=== PATIENT | male | born 1990 | race Caucasian/White ===

== ENCOUNTER 2019-02-09 12:03 | Inpatient (IN) | payer OTHER ==
--- NOTE | 2019-02-09 12:23 | PDOC ---
Rapid Medical Evaluation Time Seen by Provider: 02/09/19 12:18 Medical Evaluation: 02/09/19 12:18 I have performed a brief in-person evaluation of this patient. The patient presents with a chief complaint of: constipation- given SS enema without relief. Pertinent physical exam findings: Normoactive BS. Firm, distended abdomen. I have ordered the following: labs The patient will proceed to the ED for further evaluation. Discharge Disposition - Diagnosis Abdominal distention - Referrals - Patient Instructions - Post Discharge Activity
[2019-02-09] MEDS ORDERED: SODIUM PHOSPHATE/NA BIPHOS 133 ML ENEMA PR ONE (12:24)
--- NOTE | 2019-02-09 13:38 | PDOC ---
History of Present Illness - General Chief Complaint: Constipation Stated Complaint: ABD PAIN Time Seen by Provider: 02/09/19 12:18 History Source: Patient, Care Provider Exam Limitations: Clinical Condition - History of Present Illness Initial Comments: History is limited bc patient is non-verbal. History obtained from [place] papers and keno writer/runner from [facility] at bedside. Deni Velez is a quadriplegic 28 yo M from [facility] with a hx of Severe intellectual delay, spastic diplegic cerebral palsy, epilepsy w hx of status epilepticus, constipation, hammer toe, cyclic neutropenia, primary optic atrophy, presence of CSF drainage device who presents to the ER for constipation. The patient was given a fleet enema yesterday at [facility] but he has still not had a bowel movement. Today his abdomen is ridig, distended and tense. The patient also takes Senna 100 mg BID, Colace 100 mg BID, and Bisacodyl suppository prn. Aid at bedside does not know the last time he had a bowel movement but thinks it has not occurred in the past week. 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 Past History - Past Medical History Allergies/Adverse Reactions: Allergies Allergy/AdvReac Type Severity Reaction Status Date / Time latex Allergy Verified 02/09/19 17:31 Home Medications: Ambulatory Orders Acetaminophen [Tylenol] 325 mg PO Q4H PRN 02/09/19 Acetaminophen [Tylenol] 480 mg PO Q4H PRN 02/09/19 Bisacodyl Suppository [Dulcolax Suppository -] 10 mg RC ASDIR PRN 02/09/19 Clobazam [Onfi -] 5 mg PO BID 02/09/19 Container,Empty [Nasal [place] Bottle] 1 each MC HS 02/09/19 Diazepam 1 mg PO TID 02/09/19 Docusate Sodium [Colace -] 100 mg PO BID 02/09/19 FA/Mv,Ca,Iron,Min/Lycopene/Lut [Centravites Tablet] 1 each PO DAILY 02/09/19 Lamotrigine [Lamictal -] 125 mg PO BID 02/09/19 Loratadine [Claritin -] 10 mg PO BID 02/09/19 Magnesium Hydrox 2400MG/30Ml [Milk of Magnesia -] 35 ml PO BID 02/09/19 Sennosides [Senna -] 1 tab PO BID 02/09/19 Simethicone Liquid [Mylicon Liquid -] 0.6 ml PO Q4H PRN 02/09/19 Sodium Phosphate,[place]-Dibasic [Fleet Enema] 133 ml RC ASDIR PRN 02/09/19 Talc/Cellulos/Chloroxy/Aldioxa [Zeasorb Powder] 71 gm TP BID 02/09/19 Tizanidine HCl [Zanaflex (Nf)] 4 mg PO BID 02/09/19 Topiramate [Topamax] 50 mg PO BID 02/09/19 - Suicide/Smoking/Psychosocial Hx Smoking History: Never smoked Review of Systems - Review of Systems Able to Perform ROS?: No (Non-verbal) *Physical Exam - Vital Signs Last Vital Signs Temp Pulse Resp BP Pulse Ox 98.1 F 95 H 20 122/81 99 02/09/19 12:22 02/09/19 12:22 02/09/19 12:22 02/09/19 12:22 02/09/19 12:22 - Physical Exam Comments: GENERAL: Wheelchair bound, contracted, Tense abdomen, no active distress. HEENT: Normocephalic, atraumatic. PERRL, EOM intact. CARDIOVASCULAR: Normal S1, S2. Regular rate and rhythm. PULMONARY: No evidence of respiratory distress. Lungs clear to auscultation bilaterally. No wheezing, rales or rhonchi. ABDOMEN: Abdomen is tense, distended, and diffusely TTP. Normal bowel sounds. EXTREMITIES: Limited ROM in all four extremities. Grossly contracted. SKIN: Warm, dry. No rash Rectal Exam: positive: normal rectal tone, other (Air in the vault. Upon retraction of finger liquid poop shoots out. No palpable stool. ) Neurologic: positive: Normal Mood/Affect, Respond to painful stimul, Responsive. negative: Facial Droop ED Treatment Course - LABORATORY CBC & Chemistry Diagram: 02/09/19 14:12 02/09/19 14:12 - RADIOLOGY Radiograph Interpretation: CTAP: Abdomen and pelvis CT with contrast Clinical information: evaluate for small bowel obstruction Multiplanar imaging was performed following the intravenous administration of nonionic contrast. Area no evidence of pneumoperitoneum, abscess or free intraperitoneal fluid. Moderate diffuse colonic distention is seen including the rectum on the basis of air and fluid accumulation. There is diffuse mild to moderate small bowel distention. No definite CT evidence of volvulus or obstruction. Allowing for respiratory motion artifact the liver, spleen, pelvis, gallbladder, adrenal glands and kidneys demonstrate no obvious abnormality. The aorta appears unremarkable in caliber. No gross lymphadenopathy is seen. The urinary bladder is somewhat overdistended. There is partial imaging of a ventriculoperitoneal shunt catheter in place. The visualized osseous structures demonstrate no obvious acute pathology. Impression : Moderate diffuse colonic dilatation is noted including the rectum secondary to air and fluid accumulation. No definite CT evidence of volvulus or obstruction. There is diffuse mild to moderate small bowel distention. Correlate with close follow-up radiography. Mild urinary bladder overdistention. Bilateral hip dislocations. Status post right proximal femoral ORIF. Possible low position of the lumbar spinal cord/tethered cord. Ventriculoperitoneal shunt catheter in place. Medical Decision Making - Medical Decision Making History is limited bc patient is non-verbal. History obtained from [place] papers and keno writer/runner from [facility] at bedside. Deni Velez is a quadriplegic 28 yo M from [facility] with a hx of Severe intellectual delay, spastic diplegic cerebral palsy, epilepsy w hx of status epilepticus, constipation, hammer toe, cyclic neutropenia, primary optic atrophy, presence of CSF drainage device who presents to the ER for constipation. The patient was given a fleet enema yesterday at [facility] but he has still not had a bowel movement. Today his abdomen is ridig, distended and tense. The patient also takes Senna 100 mg BID, Colace 100 mg BID, and Bisacodyl suppository prn. Aid at bedside does not know the last time he had a bowel movement but thinks it has not occurred in the past week. Vital Signs Temp Pulse Resp BP Pulse Ox 98.1 F 95 H 20 122/81 99 02/09/19 12:22 02/09/19 12:22 02/09/19 12:22 02/09/19 12:02/09/19 12:22 DDx IBNLT: Constipation, SBO, colitis, hernia, Peritonitis. Plan: Labs, analgesia, CTAP, re-assess. Labs: Patient is hypokalemic to 3.2 - Will replete with oral potassium. CTAP: Moderate diffuse colonic distention is seen including the rectum on the basis of air and fluid accumulation. There is diffuse mild to moderate small bowel distention. No definite CT evidence of volvulus or obstruction. 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 Dispo: Will admit patient to hospital for further care including GI consult and disposition. *DC/Admit/Observation/Transfer Diagnosis at time of Disposition: Abdominal distention, Hypokalemia, Intractable abdominal pain, Huan's syndrome - Discharge Dispostion Condition at time of disposition: Guarded Decision to Admit order: Yes - Referrals - Patient Instructions - Post Discharge Activity
[2019-02-09] MEDS ORDERED: ACETAMINOPHEN 1000 MG/100 ML VIAL (NON FORMULARY) IVPB ONE (13:47)
[2019-02-09] MEDS ORDERED: SODIUM CHLORIDE 1,000 ML IV STA (13:47)
[2019-02-09 14:20] LABS: BASO % 0.6 % (0-2.0); HEMATOCRIT 46.4 % (35.4-49); HEMOGLOBIN 15.6 GM/dL (11.7-16.9); MCH 28.3 pg (25.7-33.7); MCHC 33.6 g/dl (32.0-35.9); MEAN CELL VOLUME 84.1 fl (80-96); MEAN PLT VOLUME 8.1 fl (7.5-11.1); MONO % 12.5 % (3.8-10.2); NEUT % 61.9 % (42.8-82.8); PLATELET COUNT 277 K/MM3 (134-434); RBC 5.51 M/mm3 (4.00-5.60); RDW 14.2 % (11.9-15.9); WHITE BLOOD COUNT 4.6 K/mm3 (4.0-10.0)
[2019-02-09 14:32] LABS: INR 0.99 (0.83-1.09); PROTHROMBIN TIME (PATIENT) 11.7 SEC (9.7-13.0)
[2019-02-09 14:47] LABS: ALBUMIN 4.2 g/dl (3.4-5.0); BILIRUBIN,TOTAL 0.7 mg/dL (0.2-1); BLOOD UREA NITROGEN 16.5 mg/dL (7-18); CALCIUM 9.5 mg/dL (8.5-10.1); POTASSIUM 3.2 mmol/L (3.5-5.1); TOT PROT 8.1 g/dl (6.4-8.2)
[2019-02-09] MEDS ORDERED: ACETAMINOPHEN INJECTION 100 ML IVPB ONE (14:52)
[2019-02-09] MEDS ORDERED: morphine CARPU-JECT 4 MG/1 ML DISP.SYRIN IVPUSH ONE (15:45)
[2019-02-09] MEDS ORDERED: MORPHINE SULFATE 2 MG/ML VIAL ONE (16:13)
--- NOTE | 2019-02-09 16:54 | PDOC ---
Documentation entered by Jaye Frank SCRIBE, acting as scribe for Jessica Wayne MD. Jessica Wayne MD: This documentation has been prepared by the Monika gillette Adrianna, SCRIBE, under my direction and personally reviewed by me in its entirety. I confirm that the documentation accurately reflects all work, treatment, procedures, and medical decision making performed by me. 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 Patient had a fleet enema one day ago without any relief. Aid is unsure of his LBM. HPI is limited secondary to patient being non-verbal at baseline. additional history is provided mom at bedside, and aid from [facility]. Allergie: Latex Surgical History: PREDICTIVE MAINTENANCE SPECIALIST shunt Social History: Severe intellectual delay PCP: Anel Denis 02/09/19 15:04 02/09/19 16:46 - Physicial Exam PE: 02/09/19 16:49 awake lungs clear bilat, heart rrr no mrg abd hard, distended, diffuse ttp. rectal large distended rectum, unable to palp bolus of stool, loose watery stool coming on completing. stool yellow, liquid. no blood. ext contracted, nonverbal ( baseline, ) grunts only. - Medical Decision Making 02/09/19 16:52 28 yo male h/o CP PREDICTIVE MAINTENANCE SPECIALIST shunt seizure disorder and chronic constipation here with severely distended abd, and distended rectum, unable to palp stool obstruction.differential Sbo, volvulus, perf, severe constipation and obstipation, megacolon. xray abd, chest. CT AP, will consult surgery due to concerns for surgical abd, ct a/p pelvis. d/w dr Dejesus. 02/09/19 17:55 EXAM#: TYPE/EXAM: RESULT: [id number] RAD/ABDOMEN FLAT UPRIGHT Abdomen and chest: Distended bowel. 2 views of the abdomen/chest reveal generalized abdominal distention, left PREDICTIVE MAINTENANCE SPECIALIST shunt catheter, large heart, hand artifact projected over the right chest and into the abdomen. There is a weak inspiration. There may be some atelectasis at the right base. There is a previous right hip surgery. 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 Since the prior study of 05/03/2014, there is generalized abdominal distention and this most likely represents an ileus. Is no sign of a pneumoperitoneum. Correlation recommended. For more complete evaluation, CT may be of help Reported By: Waqar Tripp MD 02/09/19 17:33 EXAM#: TYPE/EXAM: RESULT: [id number] RAD/CHEST X-RAY PORTABLE* Chest: Distention 2 views of the chest reveal hand artifact obscuring discrete detail the right hemithorax. There is a weak inspiration with prominent heart, scoliosis and generalized abdominal distention with left PREDICTIVE MAINTENANCE SPECIALIST shunt catheter. Correlation recommended. Reported By: Waqar Tripp MD 02/09/19 17:58 EXAM#: TYPE/EXAM: RESULT: [id number] CT/ABDOMEN PELVIS CT WITH CONTR Abdomen and pelvis CT with contrast Clinical information: evaluate for small bowel obstruction Impression: Moderate diffuse colonic dilatation is noted including the rectum secondary to air and fluid accumulation. No definite CT evidence of volvulus or obstruction. There is diffuse mild to moderate small bowel distention. Correlate with close follow-up radiography. Mild urinary bladder overdistention. Bilateral hip dislocations. Status post right proximal femoral ORIF. Possible low position of the lumbar spinal cord/tethered cord. Ventriculoperitoneal shunt catheter in place. Reported By: Devin Howard MD 02/09/19 18:20 02/09/19 18:21 pt seen by surgery, felt to not be surgical. CT read as gaseous distension and stool. will admit for severity of distension and pain control, electrolyte replacement. GI consult. Heart Score/ECG Review #1 General ECG Interpretation: Sinus Rhythm, Normal Rate, Normal Intervals Compared to previous ECG there are: Other (inverted T waves II, III, AVF)
--- NOTE | 2019-02-09 18:35 | CONSULT ---
Consult Consult Specialty:: General Surgery Referred by:: Marifer Marvin Reason for Consultation:: abdominal distention, ?constipation, ?pain - History of Present Illness Chief Complaint: pt nonverbal - per facility notes, no BM despite soap suds enema, abdominal distention, not clear when last BM was History of Present Illness: 28yo nonverbal M from [place], with severe MR, congenital spastic CP, functional quadriplegia, seizure d/o, s/p SPORTS MEDICINE PHYSICIAN shunt (h/o Gr 4 IVH as ), constipation on routine bowel regimen, who may not have had BM in the last week. Facility administered soap suds enema without much effect, and his abdomen was noted to be more distended than usual, firm to touch, and he was sent to ER. Fleet's enema was ordered here, and AXR showed dilated SB and LB loops throughout. He could not cooperate with oral contrast, and rectal exam showed no solid stool in vault, air-filled vault, and some liquid evacuation on finger withdrawal. CT was then done, showing similar findings to XR - air and liquid in distal SB and colon, with colonic dilation all the way to rectal vault without clear obstruction or volvulus. His regimen usually includes colace bid, 2 senna tabs nightly, suppository (bisacodyl) prn (given twice this month per records), and MOM twice daily, with enemas prn as well. It is not 100 % clear when his last BM was, but reportedly may or may not have been as much as a week ago. He is a "picky eater" per the aide at his bedside, thought she was not here when he came in, nor had seen him in last couple days. He had meds this morning per records from [place]. There was concern regarding abdominal pain/discomfort as well, though he is difficult to assess given his nonverbal status. Murphy was placed after CT also showed distended bladder, and UA/cx is pending. Surgery was asked to assess. He is seen and examined in ER with aide present. He vocalizes constantly, without words or clear meaning. This increases when touched or examined, and he appears not to like being touched much, which the aide confirms. It is difficult to tell if he is in pain or not. Urine is yellow in Murphy bag. Unclear if it had been emptied earlier or not. Accompanying records from [place] are reviewed with his medical history. He is on multiple antiseizure meds. Labs were significant for K+ 3.2 and CO2 33. Normal wbc, lactate 1, lipase 405 (slightly over upper limit normal). 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, Other (profound MR, CP, spastic quadriplegia, h/o IVH with SPORTS MEDICINE PHYSICIAN shunt as , nonverbal (grunts, vocalizes only)) Gastrointestinal: Yes: Constipation Musculoskeletal: Yes: Other (functional quadriplegia, limb contractures, hammer toes) - Past Surgical History Additional Surgical History: SPORTS MEDICINE PHYSICIAN shunt, multiple tendon releases, right hip osteotomy/fixation - Alcohol/Substance Use Hx Alcohol Use: No History of Substance Use: reports: None - Smoking History Smoking history: Never smoked Have you smoked in the past 12 months: No - Social History Usual Living Arrangement: Half-Way ADL: Support Services Place of : [facility] Home Medications - Allergies Allergies/Adverse Reactions: Allergies Allergy/AdvReac Type Severity Reaction Status Date / Time latex Allergy Verified 02/09/19 17:31 - Home Medications Home Medications: Ambulatory Orders Acetaminophen [Tylenol] 325 mg PO Q4H PRN 02/09/19 Acetaminophen [Tylenol] 480 mg PO Q4H PRN 02/09/19 Bisacodyl Suppository [Dulcolax Suppository -] 10 mg RC ASDIR PRN 02/09/19 Clobazam [Onfi -] 5 mg PO BID 02/09/19 Container,Empty [Nasal [place] Bottle] 1 each HS 02/09/19 Diazepam 1 mg PO TID 02/09/19 Docusate Sodium [Colace -] 100 mg PO BID 02/09/19 FA/Mv,Ca,Iron,Min/Lycopene/Lut [Centravites Tablet] 1 each PO DAILY 02/09/19 Lamotrigine [Lamictal -] 125 mg PO BID 02/09/19 Loratadine [Claritin -] 10 mg PO BID 02/09/19 Magnesium Hydrox 2400MG/30Ml [Milk of Magnesia -] 35 ml PO BID 02/09/19 Sennosides [Senna -] 1 tab PO BID 02/09/19 Simethicone Liquid [Mylicon Liquid -] 0.6 ml PO Q4H PRN 02/09/19 Sodium Phosphate,[place]-Dibasic [Fleet Enema] 133 ml RC ASDIR PRN 02/09/19 Talc/Cellulos/Chloroxy/Aldioxa [Zeasorb Powder] 71 gm TP BID 02/09/19 Tizanidine HCl [Zanaflex (Nf)] 4 mg PO BID 02/09/19 Topiramate [Topamax] 50 mg PO BID 02/09/19 Family Disease History - Family Disease History Family History: Unremarkable (noncontributory) Review of Systems Unable to obtain ROS, reason: pt cannot offer - Review of Systems Gastrointestinal: reports: Bloating, Constipation. denies: Nausea, Vomiting Genitourinary: reports: Incontinence Musculoskeletal: reports: Decreased ROM, Other (contractures) Neurological: reports: Pre-Existing Deficit (see hpi) Physical Exam Vital Signs: Vital Signs Temperature 98.1 F 02/09/19 12:22 Pulse Rate 95 H 02/09/19 12:22 Respiratory Rate 20 02/09/19 12:22 Blood Pressure 122/81 02/09/19 12:22 O2 Sat by Pulse Oximetry (%) 99 02/09/19 12:22 Constitutional: Yes: Well Nourished, Calm, Thin, Other (vocalizes but nonverbal - gets louder and more frequent with touching/exam, but does calm down quickly) Eyes: Yes: Conjunctiva Clear, Other (random eye movements) HENT: Yes: Atraumatic, Other (SPORTS MEDICINE PHYSICIAN shunt present, dentition ok) Neck: Yes: Supple, Trachea Midline Cardiovascular: Yes: Regular Rate and Rhythm Respiratory: Yes: Regular, CTA Bilaterally (very difficult to hear breath sounds over pt vocalizing - no alisia wheezing noted) Gastrointestinal: Yes: Normal Bowel Sounds, Soft (in lower aspect when pt exhales, belly gets a little softer), Distention (tensely, tympanic), Other ( cannot assess tenderness - pt does not like being touched, reacts to palpation of abdomen with stethoscope same as to palpation, with increased vocalization) ...Rectal Exam: Yes: Sphincter Tone Normal (increased tone), Other (rectal vault with gas and some brown fluid evacuated on withdrawal of finger, no solid stool palpable, no masses felt). No: Mass Renal/: Yes: Bladder Distention (was distended on CT, now with Murphy), Murphy Present (about 350-400ml in bag, yellow). No: Hematuria Musculoskeletal: Yes: Joint Stiffness, Other (spastic, functional quadriplegia, scoliosis/kyphosis, moves hands L>R some, wipes at face) Extremities: Yes: Deformity (all limbs contracted, UE > LE). No: Cool, Cyanosis Edema: No Peripheral Pulses WNL: Yes Integumentary: No: Jaundice, Rash Neurological: Yes: Alert (awake, vocalizes, nonverbal), Pre-Existing Deficit ( severe MR/CP at baseline, moves head and hands some) Psychiatric: Yes: Alert, Other (see above) Labs: CBC, BMP 02/09/19 14:12 02/09/19 14:12 CMP Sodium 134 mmol/L (136-145) L 02/09/19 14:12 Potassium 3.2 mmol/L (3.5-5.1) L 02/09/19 14:12 Chloride 94 mmol/L (98-107) L 02/09/19 14:12 Carbon Dioxide 33 mmol/L (21-32) H 02/09/19 14:12 Anion Gap 7 MMOL/L (8-16) L 02/09/19 14:12 BUN 16.5 mg/dL (7-18) 02/09/19 14:12 Creatinine 1.0 mg/dL (0.55-1.3) 02/09/19 14:12 Est GFR (CKD-EPI)AfAm 116.54 02/09/19 14:12 Est GFR (CKD-EPI)NonAf 100.55 02/09/19 14:12 Random Glucose 79 mg/dL (74-106) 02/09/19 14:12 Lactic Acid 1.0 mmol/L (0.4-2.0) 02/09/19 14:12 Calcium 9.5 mg/dL (8.5-10.1) 02/09/19 14:12 Total Bilirubin 0.7 mg/dL (0.2-1) 02/09/19 14:12 AST 7 U/L (15-37) L 02/09/19 14:12 ALT 27 U/L (13-61) 02/09/19 14:12 Alkaline Phosphatase 72 U/L (45-117) 02/09/19 14:12 Total Protein 8.1 g/dl (6.4-8.2) 02/09/19 14:12 Albumin 4.2 g/dl (3.4-5.0) 02/09/19 14:12 Lipase 405 U/L (73-393) H 02/09/19 14:12 INR, PTT INR 0.99 (0.83-1.09) 02/09/19 14:12 urine pending Imaging - Results X-ray: Report Reviewed, Image Reviewed Cat Scan: Report Reviewed, Image Reviewed (images reviewed - discussed with Dr. 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 - OTHER SPECIFIED FUNCTIONAL INTESTINAL DISORDERS (2) Abdominal distention Code(s): R14.0 - ABDOMINAL DISTENSION (GASEOUS) (3) Other constipation Code(s): K59.09 - OTHER CONSTIPATION (4) Acute urinary retention Code(s): R33.8 - OTHER RETENTION OF URINE (5) Profound mental handicap Code(s): F73 - PROFOUND INTELLECTUAL DISABILITIES (6) Congenital spastic cerebral palsy Code(s): G80.1 - SPASTIC DIPLEGIC CEREBRAL PALSY (7) Epilepsy without status epilepticus, not intractable Code(s): G40.909 - EPILEPSY, UNSP, NOT INTRACTABLE, WITHOUT STATUS EPILEPTICUS (8) S/P ventriculoperitoneal shunt Code(s): Z98.2 - PRESENCE OF CEREBROSPINAL FLUID DRAINAGE DEVICE Assessment/Plan admitted to medicine no clear evidence of solid stool burden - gas and fluid-filled, dilated colon throughout, as well as distal small bowel, all the way to rectum, without obstruction or volvulus suggests colonic pseudoobstruction/Huan's syndrome would continue nightly senna, would not give any more enemas consider simethicone liquid correct potassium, preferably IV trend labs, including lipase (elevation may be incidental) urinary retention may be related to the dilated colon - agree with Murphy for now NPO except meds for tonight - would give all evening doses of essential needed/ usual medications no acute surgical issues at this time will follow up in am
[2019-02-09] MEDS ORDERED: POTASSIUM CHLORIDE TABS 20 MEQ TABLET.ER (FP) PO ONE (19:11)
--- NOTE | 2019-02-09 19:11 | PN ---
Teaching Attending Note Name of Resident: Km Monaco ATTENDING PHYSICIAN STATEMENT I saw and evaluated the patient. I reviewed the resident's note and discussed the case with the resident. I agree with the resident's findings and plan as documented. 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 The patient was given a fleet enema yesterday at [facility] but he has still not had a bowel movement. Today his abdomen is rigid, distended and tense. The patient also takes Senna 100 mg BID, Colace 100 mg BID, and Bisacodyl suppository PRN. Aide at bedside does not know the last time he had a bowel movement but thinks it has not occurred in the past week. OBJECTIVE: Awake, Alert and curled up in position. Screams with any tactile stimulus Vital Signs Period Temp Pulse Resp BP Sys/Vigil Pulse Ox Last 24 Hr 98.1 F 91-95 20-20 122-124/68-81 97-99 HEENT: No Jaundice, eye redness or discharge, PERRLA, EOMI. Normocephalic, atraumatic. External ears are normal. No nasal discharge. Neck: Supple, nontender. No palpable adenopathy or thyromegaly. No JVD Chest: Good effort. Clear to auscultation and percussion. Heart: Regular. No S3, rub or murmur Abdomen: Distended, tense and tender; no HSM. No rebound or guarding. Normal bowel sounds. Ext: Peripheral pulses intact. No leg edema. Right hip scar. Limb contractures but uses right arm to scratch face. Atrophy of lower extremities Skin: Warm and dry. No petechiae, rash or ecchymosis. Neuro: Alert. Nonverbal. Unable to follow commands. Spastic quadriplegia. Psych: Unable to assess. Current Medications Generic Name Dose Route Start Last Admin Trade Name Freq PRN Reason Stop Dose Admin Bisacodyl 10 mg 02/10/19 10:00 Dulcolax Suppository - RC DAILY [facility] Clobazam 5 mg 02/09/19 22:00 Onfi - PO BID [facility] Diazepam 1 mg 02/09/19 22:00 Valium - PO TID [facility] Docusate Sodium 100 mg 02/09/19 22:00 Colace - PO BID [facility] Heparin Sodium (Porcine) 5,000 unit 02/09/19 22:00 Heparin - SQ BID [facility] Potassium Chloride/Dextrose/Sod Cl 20 meq in 1,000 mls @ 83 mls/hr 02/09/19 20 :45 D5-1/2ns+20 Meq Kcl - IV ASDIR [facility] Lamotrigine 25 mg/ Lamotrigine 125 mg 02/09/19 22:00 100 mg PO BID [facility] Magnesium Hydroxide 30 ml 02/09/19 20:50 Milk Of Magnesia - PO BID [facility] Senna 1 tab 02/09/19 22:00 Senna - PO BID [facility] Simethicone 40 mg 02/09/19 20:45 Mylicon Liquid - PO Q4H [facility] Sodium Phosphate 133 ml 02/09/19 20:42 Fleet Adult Rectal Enema - RC ASDIR PRN CONSTIPATION Topiramate 50 mg 02/09/19 22:00 Topamax - PO BID [facility] Home Medications Medication Instructions Recorded Acetaminophen [Tylenol] 325 mg PO Q4H PRN 02/09/19 Acetaminophen [Tylenol] 480 mg PO Q4H PRN 02/09/19 Bisacodyl Suppository [Dulcolax 10 mg RC ASDIR PRN 02/09/19 Suppository -] Clobazam [Onfi -] 5 mg PO BID 02/09/19 Container,Empty [Nasal [place] 1 each [facility] HS 02/09/19 Bottle] Diazepam 1 mg PO TID 02/09/19 Docusate Sodium [Colace -] 100 mg PO BID 02/09/19 FA/Mv,Ca,Iron,Min/Lycopene/Lut 1 each PO DAILY 02/09/19 [Centravites Tablet] Lamotrigine [Lamictal -] 125 mg PO BID 02/09/19 Loratadine [Claritin -] 10 mg PO BID 02/09/19 Magnesium Hydrox 2400MG/30Ml [Milk 35 ml PO BID 02/09/19 of Magnesia -] Sennosides [Senna -] 1 tab PO BID 02/09/19 Simethicone Liquid [Mylicon Liquid 0.6 ml PO Q4H PRN 02/09/19 -] Sodium Phosphate,Kay-Dibasic 133 ml RC ASDIR PRN 02/09/19 [Fleet Enema] Talc/Cellulos/Chloroxy/Aldioxa 71 gm TP BID 02/09/19 [Zeasorb Powder] Tizanidine HCl [Zanaflex (Nf)] 4 mg PO BID 02/09/19 Topiramate [Topamax] 50 mg PO BID 02/09/19 Abnormal Lab Results 02/09/19 02/09/19 02/09/19 14:12 14:12 17:20 Monocytes % 12.5 H Sodium 134 L Potassium 3.2 L Chloride 94 L Carbon Dioxide 33 H Anion Gap 7 L Magnesium 2.6 H AST 7 L Lipase 405 H Urine pH >= 9.0 H Ur Specific [place] 1.036 H Urine Ketones 1+ H Urine Blood 1+ H ASSESSMENT AND PLAN: 1. Abdominal Pain/Distension and ?Constipation - Drug side effect, hypokalemia and dehydration likely contributed to his ailment. Abdomen and pelvis CT with IV contrast showed "Moderate diffuse colonic dilatation is noted including the rectum secondary to air and fluid accumulation. No definite CT evidence of volvulus or obstruction. There is diffuse mild to moderate small bowel distention. Correlate with close follow-up radiography. Mild urinary bladder overdistention. Bilateral hip dislocations. Status post right proximal femoral ORIF. Possible low position of the lumbar spinal cord/tethered cord. Ventriculoperitoneal shunt catheter in place." Patient evaluated by surgeon in the ER. Findings consistent with colonic pseudoobstruction. Patient also has features of dehydration. Hypokalemia likely due to poor intake and continuing renal losses. Will implement recommendations by surgeon, keep him NPO, give IV fluids, check Mg+, give IV KCL, Senna and trend his lipase. No acute abnormality on CXR and over 700 cc of urine was drained after quiroz insertion in the ER. Continue comprehensive care of all his comorbid issues including frequent repositioning to prevent decubitus ulcers. 2. DVT prophylaxis - Lovenox 40 mg SQ q 24 hours. 3. Advance directives - Full code
[2019-02-09 19:27] LABS: MAGNESIUM 2.6 mg/dL (1.8-2.4)
[2019-02-09 19:54] LABS: EPI CELLS 6.6 /HPF (0-5/HPF); HYALINE CASTS 18 /lpf (0-8); PH,URINE >= 9.0 (5.0-8.0); URINE APPEARANCE CLOUDY; URINE BACTERIA 8.3 /hpf (NEGATIVE); URINE BILIRUBIN NEGATIVE (NEGATIVE); URINE COLOR YELLOW; URINE GLUCOSE (UA) NEGATIVE (NEGATIVE); URINE KETONE 1+ (NEGATIVE); URINE LEUK ESTERASE NEGATIVE (NEGATIVE); URINE NITRITE NEGATIVE (NEGATIVE); URINE PROTEIN NEGATIVE (NEGATIVE); URINE RBC 12 /hpf (0-4); URINE UROBILINOGEN 0.2 mg/dL (0.2-1.0); URINE WBC 1 /hpf (0-5)
--- NOTE | 2019-02-09 20:36 | HP ---
CHIEF COMPLAINT: Constipation PCP: Dr. Anel Denis HISTORY OF PRESENT ILLNESS: Pt. is a 28 y.o. M w/ PMHx. of sever MR, seizure disorder, functional quadriplegia and constipation presents from [place] for constipation. Pt. is non-verbal at baseline and aide at bedside only came in to see the Pt. after he had arrived at the hospital and last encounter was a couple weeks ago. Per chart review and discussion with ED resident and Dr. Dejesus , it is unknown when the Pt.s last BM was. Per the medication checklist Pt. was given Dulcolax suppository on the and on the 07 of February. It is unknown if Pt. had a BM during the last week as there is no documentation. Pt. was reportedly given a soap and suds enema today with no effect after being evaluated by Dr. Mortensen for abdominal distention. Pt. required Murphy in ED after CT A/P found overdistended bladder which drained 600ccs of yellow urine. Unclear if Pt. had 800cc total urine on my assessment or if bag was emptied at that time and had a total of 1400cc urine production. Pt. reportedly drinks 80 Oz. of water in the morning and in the evening. Pt. eats a chopped salad for lunch. Pt. has 4 Oz. of prunes in the morning and in the evening. Pt. eat 1" chopped regular diet with thin liquids. Per chart review and staff monitoring, Pt. has not had any vomiting, fevers, chills, seizure activity, or hematuria. ER course was notable for: (1) EKG, UA/UCx., Consulted Dr. 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 ORIF, Tendon release , R. Femoral Osteomy Social History: Smoking: Unknown but very unlikely Alcohol: Unknown but very unlikely Drugs: Unknown but very unlikely Family History: Unknown Allergies latex Allergy (Verified 02/09/19 17:31) HOME MEDICATIONS: Home Medications Medication Instructions Recorded Acetaminophen [Tylenol] 325 mg PO Q4H PRN 02/09/19 Acetaminophen [Tylenol] 480 mg PO Q4H PRN 02/09/19 Bisacodyl Suppository [Dulcolax 10 mg RC ASDIR PRN 02/09/19 Suppository -] Clobazam [Onfi -] 5 mg PO BID 02/09/19 Container,Empty [Nasal [place] 1 each MC HS 02/09/19 Bottle] Diazepam 1 mg PO TID 02/09/19 Docusate Sodium [Colace -] 100 mg PO BID 02/09/19 FA/Mv,Ca,Iron,Min/Lycopene/Lut 1 each PO DAILY 02/09/19 [Centravites Tablet] Lamotrigine [Lamictal -] 125 mg PO BID 02/09/19 Loratadine [Claritin -] 10 mg PO BID 02/09/19 Magnesium Hydrox 2400MG/30Ml [Milk 35 ml PO BID 02/09/19 of Magnesia -] Sennosides [Senna -] 1 tab PO BID 02/09/19 Simethicone Liquid [Mylicon Liquid 0.6 ml PO Q4H PRN 02/09/19 -] Sodium Phosphate,[place]-Dibasic 133 ml RC ASDIR PRN 02/09/19 [Fleet Enema] Talc/Cellulos/Chloroxy/Aldioxa 71 gm TP BID 02/09/19 [Zeasorb Powder] Tizanidine HCl [Zanaflex (Nf)] 4 mg PO BID 02/09/19 Topiramate [Topamax] 50 mg PO BID 02/09/19 REVIEW OF SYSTEMS As above- Severely limited given Pt.'s mental status PHYSICAL EXAMINATION Vital Signs - 24 hr 02/09/19 02/09/19 12:22 16:58 Temperature 98.1 F Pulse Rate 95 H Pulse Rate [ 91 H Apical] Respiratory 20 20 Rate Blood Pressure 122/81 Blood Pressure 124/68 [Right Arm] O2 Sat by Pulse 99 97 Oximetry (%) GENERAL: Awake, alert, and fully oriented, in no acute distress. HEAD: Normal with no signs of trauma. EYES: Extraocular movements intact, sclera anicteric, conjunctiva clear. EARS, NOSE, THROAT: Ears normal, nares patent, dry mucous membranes. LUNGS: Breath sounds equal, clear to auscultation bilaterally. No wheezes, and no crackles. No accessory muscle use. HEART: Tachycardic, regular rate and rhythm, normal S1 and S2 without murmur ABDOMEN: Firm, diffuse tenderness to palpation, severe distention, normoactive bowel sounds NORMA: Strong sphincter tone, no alisia blood, soft stool on glove, no external or internal hemorrhoids appreciated MUSCULOSKELETAL: B/l Hip deformities which are nontender. No CVA tenderness. UPPER EXTREMITIES: 1+ radial pulses, warm, well-perfused. No cyanosis. No clubbing. No peripheral edema. LOWER EXTREMITIES: 1+ dorsal pedal pulses, warm, well-perfused. No calf tenderness. No peripheral edema. NEUROLOGICAL: Non-verbal, severe MR, Gait not assessed PSYCHIATRIC: Appropriate mood and affect for condition SKIN: Warm, dry, normal turgor Laboratory Results - last 24 hr 02/09/19 02/09/19 02/09/19 14:12 14:12 14:12 WBC 4.6 RBC 5.51 Hgb 15.6 Hct 46.4 MCV 84.1 MCH 28.3 MCHC 33.6 RDW 14.2 Plt Count 277 MPV 8.1 Absolute Neuts (auto) 2.8 Neutrophils % 61.9 Lymphocytes % 23.0 Monocytes % 12.5 H Eosinophils % 2.0 Basophils % 0.6 Nucleated RBC % 0 PT with INR 11.70 INR 0.99 Sodium 134 L Potassium 3.2 L Chloride 94 L Carbon Dioxide 33 H Anion Gap 7 L BUN 16.5 Creatinine 1.0 Est GFR (CKD-EPI)AfAm 116.54 Est GFR (CKD-EPI)NonAf 100.55 Random Glucose 79 Lactic Acid Calcium 9.5 Magnesium 2.6 H Total Bilirubin 0.7 AST 7 L ALT 27 Alkaline Phosphatase 72 Total Protein 8.1 Albumin 4.2 Lipase 405 H Urine Color Urine Appearance Urine pH Ur Specific [place] Urine Protein Urine Glucose (UA) Urine Ketones Urine Blood Urine Nitrite Urine Bilirubin Urine Urobilinogen Ur Leukocyte Esterase Urine WBC (Auto) Urine RBC (Auto) Urine Casts (Auto) U Pathogenic Cast Auto U Epithel Cells (Auto) U Sm Round Cell (Auto) Urine Bacteria (Auto) Blood Type Antibody Screen 02/09/19 02/09/19 02/09/19 14:12 14:12 17:20 WBC RBC Hgb Hct MCV MCH MCHC RDW Plt Count MPV Absolute Neuts (auto) Neutrophils % Lymphocytes % Monocytes % Eosinophils % Basophils % Nucleated RBC % PT with INR INR Sodium Potassium Chloride Carbon Dioxide Anion Gap BUN Creatinine Est GFR (CKD-EPI)AfAm Est GFR (CKD-EPI)NonAf Random Glucose Lactic Acid 1.0 Calcium Magnesium Total Bilirubin AST ALT Alkaline Phosphatase Total Protein Albumin Lipase Urine Color Yellow Urine Appearance Cloudy Urine pH >= 9.0 H Ur Specific [place] 1.036 H Urine Protein Negative Urine Glucose (UA) Negative Urine Ketones 1+ H Urine Blood 1+ H Urine Nitrite Negative Urine Bilirubin Negative Urine Urobilinogen 0.2 Ur Leukocyte Esterase Negative Urine WBC (Auto) 1 Urine RBC (Auto) 12 Urine Casts (Auto) 18 U Pathogenic Cast Auto None U Epithel Cells (Auto) 6.6 U Sm Round Cell (Auto) None Urine Bacteria (Auto) 8.3 Blood Type B POSITIVE Antibody Screen Negative ASSESSMENT/PLAN: Pt. is a 28 y.o. M w/ PMHx. of sever MR, seizure disorder, functional quadriplegia and constipation presents from [place] for constipation. #Oglivie's Syndrome CXR and KUB appreciated CT A/P: B/l hip dislocations s/p R. 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 Dejesus) appreciated--> will c/w conservative management for now, c/w home prokinetics and stool softeners, IVF and NPO Consider transferring to Telemetry and starting Neostigmine if Pt. has not improved after 48 hours, success rates range from 88-94% according to uptodate. Dose is 2mg over 5 min with close monitoring of cardiac function on telemetry for arrythmias and bradycardia, with atropine at bedside. Pt. should receive Miralax afterwards to prevent recurrence. c/w Simethicone Q4H IV Caldor and Ofirmev for pain control, close monitoring of BMP while Pt. is on IV Caldor and on laxatives to guard against AUSTYN. #Seizure disorder c/w Lamictal c/w Topiramate c/w Clobazam c/w Diazepam #FEN D5-1/2 NS w/ 20meq K+ monitor electrolytes and replete as neccesary; replete K+ f/u BMP NPO except medications #DVT Ppx. Lovenox 40 SQ daily Visit type - Emergency Visit Emergency Visit: Yes ED Registration Date: 02/09/19 Care time: The patient presented to the Emergency Department on the above date and was hospitalized for further evaluation of their emergent condition. - New Patient This patient is new to me today: Yes Date on this admission: 02/09/19 - Critical Care Critical Care patient: No
[2019-02-09] MEDS ORDERED: SIMETHICONE 40 MG/0.6 ML BOTTLE PO PRN (20:42)
[2019-02-09] MEDS ORDERED: BISACODYL 10 MG SUPP.RECT RC PRN (20:42)
[2019-02-09] MEDS ORDERED: SODIUM PHOSPHATE/NA BIPHOS 133 ML ENEMA RC PRN (20:42)
[2019-02-09] MEDS ORDERED: MAGNESIUM HYDROX 2400MG/30ML ORAL SUSPENSION 30 ML CUP PO PRN (20:50)
[2019-02-09] MEDS ORDERED: IBUPROFEN 800 MG/8 ML IJ IVPB PRN ×2 (21:30→21:32)
[2019-02-09] MEDS ORDERED: ACETAMINOPHEN 1000 MG/100 ML VIAL (NON FORMULARY) IVPB PRN (21:32)
[2019-02-09] MEDS ORDERED: HEPARIN NA (PORCINE) 5,000 UNITS/ML 1ML VIAL SQ SCH (22:00)
[2019-02-09] MEDS ORDERED: lamoTRIgine 100 MG TABLET (FP) PO SCH (22:00)
[2019-02-09] MEDS ORDERED: MAGNESIUM HYDROX 2400 MG/30 ML PO SCH (22:00)
[2019-02-09] MEDS: D5-1/2NS+20 MEQ KCL - 20 MEQ/1,000 ML INFUS.BAG IV SCH (22:54)
[2019-02-09] MEDS: ENOXAPARIN NA (PORCINE) 40 MG/0.4 ML DISP.SYRIN SQ SCH (23:05)
[2019-02-10] MEDS ORDERED: DOCUSATE SODIUM 100 MG CAPSULE (FP) PO ONE (00:01)
[2019-02-10] MEDS ORDERED: ENOXAPARIN NA (PORCINE) 40 MG/0.4 ML DISP.SYRIN SQ ONE (00:01)
[2019-02-10] MEDS ORDERED: TOPIRAMATE 25 MG TABLET (FP) ONE ×2 (00:01→02:03)
[2019-02-10] MEDS ORDERED: lamoTRIgine 25 MG TABLET ONE ×2 (00:01→02:03)
[2019-02-10] MEDS: SENNOSIDES 8.6MG TABLET (FP) PO SCH ×3 (02:00→21:56)
[2019-02-10] MEDS: SIMETHICONE 40 MG/0.6 ML BOTTLE PO SCH ×7 (02:00→23:16)
[2019-02-10] MEDS: diazePAM 2 MG TABLET PO SCH ×4 (02:00→21:56)
[2019-02-10] MEDS: TOPIRAMATE 25 MG TABLET (FP) PO SCH ×2 (02:00→16:32)
[2019-02-10] MEDS: LAMOTRIGINE PO SCH ×2 (02:00→13:21)
[2019-02-10] MEDS: DOCUSATE SODIUM 100 MG CAPSULE (FP) PO SCH ×3 (02:00→21:56)
[2019-02-10] MEDS ORDERED: POTASSIUM CHLORIDE TABS 10 MEQ TABLET.ER (FP) ONE (02:03)
[2019-02-10] MEDS ORDERED: diazePAM 2 MG TABLET ONE ×2 (02:03)
[2019-02-10] MEDS ORDERED: lamoTRIgine 100 MG TABLET (FP) ONE (02:03)
[2019-02-10] MEDS ORDERED: SENNOSIDES 8.6MG TABLET (FP) PO ONE (02:14)
[2019-02-10] MEDS: MAGNESIUM HYDROX 2400MG/30ML ORAL SUSPENSION 30 ML CUP PO SCH ×3 (03:16→21:55)
[2019-02-10] MEDS: cloBAZam 10 MG TABLET PO SCH ×2 (03:16→13:30)
[2019-02-10 07:41] LABS: ALBUMIN 3.4 g/dl (3.4-5.0); BILIRUBIN,TOTAL 0.4 mg/dL (0.2-1); CALCIUM 8.5 mg/dL (8.5-10.1); CREATININE 0.7 mg/dL (0.55-1.3); MAGNESIUM 2.6 mg/dL (1.8-2.4); PHOSPHOROUS 3.1 mg/dL (2.5-4.9); POTASSIUM 3.4 mmol/L (3.5-5.1); TOT PROT 6.6 g/dl (6.4-8.2)
[2019-02-10] MEDS ORDERED: POTASSIUM CHLORIDE ORAL LIQUID 20 MEQ/15 ML PO ONE (07:45)
[2019-02-10] MEDS ORDERED: BISACODYL 10 MG SUPP.RECT RC SCH (10:00)
--- NOTE | 2019-02-10 10:35 | EKG ---
Test Reason : Blood Pressure : / mmHG Vent. Rate : 090 BPM Atrial Rate : 090 BPM P-R Int : 126 ms QRS Dur : 084 ms QT Int : 350 ms P-R-T Axes : 058 009 -38 degrees QTc Int : 428 ms NORMAL SINUS RHYTHM MINIMAL VOLTAGE CRITERIA FOR LVH, MAY BE NORMAL VARIANT T WAVE ABNORMALITY, CONSIDER INFERIOR ISCHEMIA T WAVE ABNORMALITY, CONSIDER ANTERIOR ISCHEMIA ABNORMAL ECG NO PREVIOUS ECGS AVAILABLE Confirmed by Amandeep Babb MD ([id number]) on 02/10/2019 10:35:10 AM Referred By: Confirmed By:Amandeep Babb MD
[2019-02-10] MEDS ORDERED: KETOROLAC TROMETHAMINE 30 MG/1 ML VIAL IM ONE (11:49)
--- NOTE | 2019-02-10 12:54 | PN ---
Physical Exam: SUBJECTIVE: Patient seen this morning and not awake. Patient nonverbal at baseline OBJECTIVE: Vital Signs Period Temp Pulse Resp BP Sys/Vigil Pulse Ox Last 24 Hr 98 F-98.8 F 63-104 18-20 104-124/67-71 97-99 GENERAL: The patient is awake and alert, non verbal at baseline HEAD: normocephalic EYES: PERRL, ENT: moist mucous membranes. LUNGS: Breath sounds equal, clear to auscultation bilaterally, no wheezes, no crackles, no accessory muscle use. HEART: Regular rate and rhythm, S1, S2 without murmur, rub or gallop. ABDOMEN: distended, no bowel sounds heard EXTREMITIES: contracted, no edema CBC, BMP 02/10/19 06:30 02/10/19 06:30 Active Medications Acetaminophen (Ofirmev Injection -) 1,000 mg IVPB Q8H PRN PRN Reason: PAIN LEVEL 6-10 Bisacodyl (Dulcolax Suppository -) 10 mg RC DAILY [facility] Clobazam (Onfi -) 5 mg PO BID [facility] Last Admin: 02/10/19 03:16 Dose: 5 mg Diazepam (Valium -) 1 mg PO TID [facility] Last Admin: 02/10/19 12:17 Dose: Not Given Docusate Sodium (Colace -) 100 mg PO BID [facility] Last Admin: 02/10/19 02:00 Dose: 100 mg Enoxaparin Sodium (Lovenox -) 40 mg SQ DAILY [facility] Last Admin: 02/09/19 23:05 Dose: 40 mg Potassium Chloride/Dextrose/Sod Cl (D5-1/2ns+20 Meq Kcl -) 20 meq in 1,000 mls @ 83 mls/hr IV ASDIR [facility] Last Admin: 02/09/19 22:54 Dose: 83 mls/hr Ibuprofen (Caldolor Injection -) 600 mg IVPB Q8H PRN PRN Reason: PAIN LEVEL 6-10 Lamotrigine 25 mg/ Lamotrigine (100 mg) 125 mg PO BID [facility] Last Admin: 02/10/19 02:00 Dose: 125 mg Magnesium Hydroxide (Milk Of Magnesia -) 30 ml PO BID [facility] Last Admin: 02/10/19 03:16 Dose: 30 ml Senna (Senna -) 1 tab PO BID [facility] Last Admin: 02/10/19 02:00 Dose: 1 tab Simethicone (Mylicon Liquid -) 40 mg PO Q4H [facility] Last Admin: 02/10/19 06:01 Dose: 40 mg Sodium Phosphate (Fleet Adult Rectal Enema -) 133 ml RC ASDIR PRN PRN Reason: CONSTIPATION Topiramate (Topamax -) 50 mg PO BID [facility] Last Admin: 02/10/19 02:00 Dose: 50 mg ASSESSMENT/PLAN: Patient is a 28 y/o male with a history of MR, seizure disorder, functional quadreplegia, and constipation who presents for constipation. #Constipation vs Oglivie syndrome - Dr. 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
[2019-02-10] MEDS ORDERED: PHENYTOIN SODIUM 100 MG/2 ML VIAL IVPB ONE (13:06)
[2019-02-10] MEDS: ENOXAPARIN NA (PORCINE) 40 MG/0.4 ML DISP.SYRIN SQ SCH (13:19)
[2019-02-10] MEDS ORDERED: SODIUM CHLORIDE IVPB SCH (13:45)
[2019-02-10] MEDS ORDERED: PHENYTOIN SODIUM IVPB SCH (13:45)
[2019-02-10 15:59] VITALS: BMI 19.3
[2019-02-10] MEDS ORDERED: KETOROLAC TROMETHAMINE 30 MG/1 ML VIAL IM SCH (16:15)
--- NOTE | 2019-02-10 17:00 | PN ---
Teaching Attending Note Name of Resident: Sylvia Sparks ATTENDING PHYSICIAN STATEMENT I saw and evaluated the patient. I reviewed the resident's note and discussed the case with the resident. I agree with the resident's findings and plan as documented. SUBJECTIVE:contracted, appears in mild distress due to pain, grunting does not speak OBJECTIVE: Last Vital Signs Temp Pulse Resp BP Pulse Ox 98.8 F 84 20 101/61 100 02/10/19 10:34 02/10/19 14:45 02/10/19 14:45 02/10/19 14:45 02/10/19 14:45 General mild distress due to pain, grunting CV S1 S2 RRR no murmur/rub/gallop Lungs CTA B/L no wheezing/rlaes/rhonchi Abdomen firm, +distended diffusely tender. 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 Colonic pseudo-obstruction- likely [place] syndrome. had BM as per aide at bedside. remains distended. will cont with bowel rest and stool softeners, quiroz for decompresion, IVF and pain control. correct electrolytes. Surgery on board. never had colonoscopy should have one as outpatient. 2. Hypokalemia- Kcl in IVF 3. spastic diplegia 4. CP- valium 5. epilepsy- medications switched to IV. monitor for seizure activity. seizure precautions 6. DVT ppx- lovenox 7. spoke with mother present at bedside. all questions answered. verbalized understanding and agreement with plan
[2019-02-10] MEDS: D5-1/2NS+20 MEQ KCL - 20 MEQ/1,000 ML INFUS.BAG IV SCH ×2 (17:09→21:57)
[2019-02-10] MEDS ORDERED: KETOROLAC TROMETHAMINE 30 MG/1 ML VIAL IM PRN (17:47)
[2019-02-10] MEDS ORDERED: KETOROLAC TROMETHAMINE 30 MG/1 ML VIAL IVPUSH PRN (19:20)
--- NOTE | 2019-02-10 19:27 | PN ---
Progress Note, Physician History of Present Illness: Pt with likely colonic pseudoobstruction/[place]'s syndrome, with gas and fluid throughout dilated colon including rectum. Had BM before coming up to floor from ED per notes, nurse doesn't know size or quality of movement. Arrived up on floor recently. Seen and examined in bed, with [place] aide present. No BM up here yet. He is currently sleeping comfortably. Moved some to light exam of abdomen, opened eyes briefly, but is nonverbal and was not disturbed. - Current Medication List Current Medications: Active Medications Acetaminophen (Ofirmev Injection -) 1,000 mg IVPB Q8H PRN PRN Reason: PAIN LEVEL 6-10 Diazepam (Valium -) 1 mg PO TID [facility] Last Admin: 02/10/19 16:27 Dose: Not Given Divalproex Sodium (Depakote -) 750 mg PO BID [facility] Docusate Sodium (Colace -) 100 mg PO BID [facility] Last Admin: 02/10/19 15:06 Dose: Not Given Enoxaparin Sodium (Lovenox -) 40 mg SQ DAILY [facility] Last Admin: 02/10/19 13:19 Dose: 40 mg Potassium Chloride/Dextrose/Sod Cl (D5-1/2ns+20 Meq Kcl -) 20 meq in 1,000 mls @ 83 mls/hr IV ASDIR REPLACED [facility] Last Admin: 02/10/19 17:09 Dose: 83 mls/hr Phenytoin Sodium 300 mg/ (Sodium Chloride) 106 mls @ 212 mls/hr IVPB DAILY [facility] Last Admin: 02/10/19 15:21 Dose: 212 mls/hr Levetiracetam (Keppra Injection -) 1,000 mg IVPB BID [facility] Magnesium Hydroxide (Milk Of Magnesia -) 30 ml PO BID [facility] Last Admin: 02/10/19 13:19 Dose: 30 ml Senna (Senna -) 2 tab PO HS [facility] Simethicone (Mylicon Liquid -) 40 mg PO Q4H [facility]PLAC[facility] Last Admin: 02/10/19 17:26 Dose: Not Given - Objective Vital Signs: Vital Signs Temperature 98.8 F 02/10/19 10:34 Pulse Rate 84 02/10/19 14:45 Respiratory Rate 20 02/10/19 14:45 Blood Pressure 101/61 02/10/19 14:45 O2 Sat by Pulse Oximetry (%) 100 02/10/19 14:45 Constitutional: Yes: Well Nourished, No Distress, Calm Eyes: Yes: Conjunctiva Clear HENT: Yes: Atraumatic, Normocephalic Gastrointestinal: Yes: Distention (little softer than last night, still quite distended, tympanic throughout, not tender to very light palpation). No: Tenderness ...Rectal Exam: Yes: Deferred (will examine tomorrow when pt is awake - diaper checked - clean/no stool) Genitourinary: Yes: Murphy Present (at least 350ml in bag). No: Hematuria Musculoskeletal: Yes: Joint Stiffness Extremities: Yes: Other (contracted limbs). No: Cool, Cyanosis Integumentary: No: Jaundice, Rash Neurological: Yes: Pre-Existing Deficit (severe MR/CP, nonverbal at baseline), Other (sleeping comfortably) Labs: CBC, BMP 02/10/19 06:30 02/10/19 06:30 K up from 3.2 Problem List - Problems (1) [place]'s syndrome Code(s): K59.8 - OTHER SPECIFIED FUNCTIONAL INTESTINAL DISORDERS (2) Abdominal distention Code(s): R14.0 - ABDOMINAL DISTENSION (GASEOUS) (3) Other constipation Code(s): K59.09 - OTHER CONSTIPATION (4) Acute urinary retention Code(s): R33.8 - OTHER RETENTION OF URINE (5) Profound mental handicap Code(s): F73 - PROFOUND INTELLECTUAL DISABILITIES (6) Congenital spastic cerebral palsy Code(s): G80.1 - SPASTIC DIPLEGIC CEREBRAL PALSY (7) Epilepsy without status epilepticus, not intractable Code(s): G40.909 - EPILEPSY, UNSP, NOT INTRACTABLE, WITHOUT STATUS EPILEPTICUS (8) S/P ventriculoperitoneal shunt Code(s): Z98.2 - PRESENCE OF CEREBROSPINAL FLUID DRAINAGE DEVICE Assessment/Plan admitted to medicine CT showed gas and fluid-filled, dilated colon throughout, as well as distal small bowel, all the way to rectum, without obstruction or volvulus suggests colonic pseudoobstruction/[place]'s syndrome would continue nightly senna, would NOT give any more enemas continue simethicone liquid correct potassium, preferably IV trend labs Murphy for now for retention would give all essential needed/usual medications no acute surgical issues at this time will follow up in am
[2019-02-10] MEDS: DIVALPROEX SODIUM 250 MG TABLET E.C. PO SCH (21:56)
[2019-02-10] MEDS: levETIRAcetam 500 MG/5 ML INJECTION VIAL IVPB SCH (21:56)
[2019-02-11] MEDS: SIMETHICONE 40 MG/0.6 ML BOTTLE PO SCH ×6 (03:12→21:08)
[2019-02-11] MEDS: diazePAM 2 MG TABLET PO SCH ×3 (06:26→23:04)
[2019-02-11 06:59] LABS: ALBUMIN 3.6 g/dl (3.4-5.0); BILIRUBIN,TOTAL 0.4 mg/dL (0.2-1); BLOOD UREA NITROGEN 4.9 mg/dL (7-18); CALCIUM 8.8 mg/dL (8.5-10.1); CREATININE 0.8 mg/dL (0.55-1.3); TOT PROT 7.2 g/dl (6.4-8.2)
[2019-02-11 08:15] LABS: HEMATOCRIT 46.1 % (35.4-49); MCH 27.9 pg (25.7-33.7); MCHC 32.5 g/dl (32.0-35.9); MEAN CELL VOLUME 85.6 fl (80-96); PLATELET COUNT 255 K/MM3 (134-434); RBC 5.39 M/mm3 (4.00-5.60); RDW 13.9 % (11.9-15.9); WHITE BLOOD COUNT 4.9 K/mm3 (4.0-10.0)
[2019-02-11] MEDS ORDERED: PT OWN MED DRAWER 7, Y5N ONE ×2 (10:25→23:31)
[2019-02-11] MEDS: DOCUSATE SODIUM 100 MG CAPSULE (FP) PO SCH ×2 (10:28→23:04)
[2019-02-11] MEDS: DIVALPROEX SODIUM 250 MG TABLET E.C. PO SCH ×2 (10:28→23:07)
[2019-02-11] MEDS: PHENYTOIN SODIUM 100 MG/2 ML VIAL IVPB SCH ×2 (10:29→17:55)
[2019-02-11] MEDS: MAGNESIUM HYDROX 2400MG/30ML ORAL SUSPENSION 30 ML CUP PO SCH ×2 (10:30→23:04)
[2019-02-11] MEDS: ENOXAPARIN NA (PORCINE) 40 MG/0.4 ML DISP.SYRIN SQ SCH (10:30)
[2019-02-11] MEDS: levETIRAcetam 500 MG/5 ML INJECTION VIAL IVPB SCH ×2 (10:30→23:03)
--- NOTE | 2019-02-11 10:55 | PN ---
Physical Exam: SUBJECTIVE: Patient seen this morning and not awake. Patient nonverbal at baseline Per nursing patient has not had a bowel movement since being on the floor. Last BM was in the ED OBJECTIVE: Vital Signs Temperature 98.1 F 02/11/19 06:00 Pulse Rate 98 H 02/11/19 06:00 Respiratory Rate 18 02/11/19 06:00 Blood Pressure 124/67 02/11/19 06:00 O2 Sat by Pulse Oximetry (%) 100 02/10/19 21:00 GENERAL: The patient is awake and alert, non verbal at baseline HEAD: normocephalic EYES: PERRL, ENT: moist mucous membranes. LUNGS: Breath sounds equal, clear to auscultation bilaterally, no wheezes, no crackles, no accessory muscle use. HEART: Regular rate and rhythm, S1, S2 without murmur, rub or gallop. ABDOMEN: distended, no bowel sounds heard EXTREMITIES: contracted, no edema CBC, BMP 02/11/19 05:30 02/11/19 05:30 Active Medications Acetaminophen (Ofirmev Injection -) 1,000 mg IVPB Q8H PRN PRN Reason: PAIN LEVEL 6-10 Diazepam (Valium -) 1 mg PO TID [facility] Last Admin: 02/11/19 06:26 Dose: 1 mg Divalproex Sodium (Depakote -) 750 mg PO BID [facility] Last Admin: 02/11/19 10:28 Dose: 750 mg Docusate Sodium (Colace -) 100 mg PO BID [facility] Last Admin: 02/11/19 10:28 Dose: 100 mg Enoxaparin Sodium (Lovenox -) 30 mg SQ DAILY [facility] Last Admin: 02/11/19 10:30 Dose: 30 mg Potassium Chloride/Dextrose/Sod Cl (D5-1/2ns+20 Meq Kcl -) 20 meq in 1,000 mls @ 83 mls/hr IV ASDIR [facility] Last Admin: 02/10/19 21:57 Dose: Not Given Ketorolac Tromethamine (Toradol Injection -) 30 mg IVPUSH Q6H PRN PRN Reason: PAIN LEVEL 1-5 Stop: 02/15/19 16:14 Levetiracetam (Keppra Injection -) 1,000 mg IVPB BID [facility] Last Admin: 02/11/19 10:30 Dose: 1,000 mg Magnesium Hydroxide (Milk Of Magnesia -) 30 ml PO BID [facility] Last Admin: 02/11/19 10:30 Dose: 30 ml Phenytoin Sodium (Dilantin Injection -) 100 mg IVPB Q8H-IV [facility] Last Admin: 02/11/19 10:29 Dose: 100 mg Senna (Senna -) 2 tab PO HS [facility] Last Admin: 02/10/19 21:56 Dose: 2 tab Simethicone (Mylicon Liquid -) 40 mg PO Q4H [facility] Last Admin: 02/11/19 10:29 Dose: 40 mg ASSESSMENT/PLAN: Patient is a 28 y/o male with a history of MR, seizure disorder, functional quadreplegia, and constipation who presents for constipation. 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
--- NOTE | 2019-02-11 11:45 | PN ---
Teaching Attending Note Name of Resident: Sylvia Sparks ATTENDING PHYSICIAN STATEMENT I saw and evaluated the patient. I reviewed the resident's note and discussed the case with the resident. I agree with the resident's findings and plan as documented. SUBJECTIVE:resting comfortable. no BM reported since yesterday OBJECTIVE: Last Vital Signs Temp Pulse Resp BP Pulse Ox 98.1 F 98 H 18 124/67 100 02/11/19 06:00 02/11/19 06:00 02/11/19 06:00 02/11/19 06:00 02/10/19 21:00 General resting comfortable CV S1 S2 RRR no murmur/rub/gallop Lungs CTA B/L no wheezing/rlaes/rhonchi Abdomen soft, +distended diffusely tender. no BS Extremities contracted limbs ASSESSMENT AND PLAN: 28yo M with PMH Severe intellectual delay, Spastic diplegic Cerebral palsy, Epilepsy with status epilepticus, Constipation, Hammer toe, Cyclic neutropenia, Primary optic atrophy and COLLECTIONS REP shunt catheter presented with constipation and to have colonic pseudo-obstruction 1. Colonic pseudo-obstruction- likely [place] syndrome. no BM, abdomen is soft but remains distended. cont with management. NPO, IVF, stool softeners. Surgery on board. never had colonoscopy should have one as outpatient. 2. Hypokalemia- resolved 3. spastic diplegia 4. CP- valium 5. epilepsy- medications switched to IV. monitor for seizure activity. seizure precautions 6. DVT ppx- lovenox
--- NOTE | 2019-02-11 15:46 | PN ---
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 Seen and examined in bed, with Gui aide present. Has had at least 3 soft/pasty BMs per nursing. Abdomen still a bit distended but much less - about baseline per aide present. He is awake, appears comfortable, not vocalizing or agitated at this time. Murphy with yellow urine. - Current Medication List Current Medications: Active Medications Acetaminophen (Ofirmev Injection -) 1,000 mg IVPB Q8H PRN PRN Reason: PAIN LEVEL 6-10 Diazepam (Valium -) 1 mg PO TID [facility] Last Admin: 02/11/19 14:58 Dose: 1 mg Divalproex Sodium (Depakote -) 750 mg PO BID [facility] Last Admin: 02/11/19 10:28 Dose: 750 mg Docusate Sodium (Colace -) 100 mg PO BID [facility] Last Admin: 02/11/19 10:28 Dose: 100 mg Enoxaparin Sodium (Lovenox -) 30 mg SQ DAILY [facility] Last Admin: 02/11/19 10:30 Dose: 30 mg Potassium Chloride/Dextrose/Sod Cl (D5-1/2ns+20 Meq Kcl -) 20 meq in 1,000 mls @ 83 mls/hr IV ASDIR [facility] Last Admin: 02/10/19 21:57 Dose: Not Given Ketorolac Tromethamine (Toradol Injection -) 30 mg IVPUSH Q6H PRN PRN Reason: PAIN LEVEL 1-5 Stop: 02/15/19 16:14 Levetiracetam (Keppra Injection -) 1,000 mg IVPB BID [facility] Last Admin: 02/11/19 10:30 Dose: 1,000 mg Magnesium Hydroxide (Milk Of Magnesia -) 30 ml PO BID [facility] Last Admin: 02/11/19 10:30 Dose: 30 ml Phenytoin Sodium (Dilantin Injection -) 100 mg IVPB Q8H-IV [facility] Last Admin: 02/11/19 10:29 Dose: 100 mg Senna (Senna -) 2 tab PO HS [facility] Last Admin: 02/10/19 21:56 Dose: 2 tab Simethicone (Mylicon Liquid -) 40 mg PO Q4H [facility] Last Admin: 02/11/19 12:55 Dose: 40 mg - Objective Vital Signs: Vital Signs Temperature 98.7 F 02/11/19 14:00 Pulse Rate 88 02/11/19 14:00 Respiratory Rate 18 02/11/19 14:00 Blood Pressure 146/64 02/11/19 14:00 O2 Sat by Pulse Oximetry (%) 99 02/11/19 09:00 Constitutional: Yes: Well Nourished, No Distress, Calm Eyes: Yes: Conjunctiva Clear, EOM Intact HENT: Yes: Atraumatic, Normocephalic Gastrointestinal: Yes: Soft, Distention (somewhat with tympany, but almost down to xiphoid level - not protuberant anymore). No: Tenderness ...Rectal Exam: Yes: Other (increased sphincter tone, vault essentially empty/ gas-filled, little bit of liquidy stool evacuated on finger withdrawal - no vocal response to exam, seems comfortable) Genitourinary: Yes: Murphy Present (yellow urine). No: Hematuria Musculoskeletal: Yes: Joint Stiffness Extremities: Yes: Other (limb contractures). No: Cool, Cyanosis Integumentary: No: Jaundice, Rash Neurological: Yes: Alert, Pre-Existing Deficit Psychiatric: Yes: Alert. 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 - OTHER SPECIFIED FUNCTIONAL INTESTINAL DISORDERS (2) Abdominal distention Code(s): R14.0 - ABDOMINAL DISTENSION (GASEOUS) (3) Other constipation Code(s): K59.09 - OTHER CONSTIPATION (4) Acute urinary retention Code(s): R33.8 - OTHER RETENTION OF URINE (5) Profound mental handicap Code(s): F73 - PROFOUND INTELLECTUAL DISABILITIES (6) Congenital spastic cerebral palsy Code(s): G80.1 - SPASTIC DIPLEGIC CEREBRAL PALSY (7) Epilepsy without status epilepticus, not intractable Code(s): G40.909 - EPILEPSY, UNSP, NOT INTRACTABLE, WITHOUT STATUS EPILEPTICUS (8) S/P ventriculoperitoneal shunt Code(s): Z98.2 - PRESENCE OF CEREBROSPINAL FLUID DRAINAGE DEVICE Assessment/Plan admitted to medicine CT showed gas and fluid-filled, dilated colon throughout, as well as distal small bowel, all the way to rectum, without obstruction or volvulus suggests colonic pseudoobstruction/Huan's syndrome abdomen appears back to baseline - soft, somewhat distended but no longer protuberant or tense could d/c Murphy would resume all usual meds ok to resume usual/regular diet, as outlined in [place] documents (small bites , small portions, upright, assistance and monitoring for meals, etc) if tolerating po well, may be ready to return home tomorrow discussed with Drs. Sparks/Ben of primary team
[2019-02-11] MEDS ORDERED: lamoTRIgine 100 MG TABLET (FP) PO SCH (22:00)
[2019-02-11] MEDS: SENNOSIDES 8.6MG TABLET (FP) PO SCH (23:05)
[2019-02-11] MEDS: TOPIRAMATE 25 MG TABLET (FP) PO SCH (23:06)
[2019-02-11] MEDS: cloBAZam 10 MG TABLET PO SCH (23:06)
[2019-02-11] MEDS: D5-1/2NS+20 MEQ KCL - 20 MEQ/1,000 ML INFUS.BAG IV SCH (23:11)
[2019-02-11] MEDS: LAMOTRIGINE 100 MG, LAMOTRIGINE 25 MG PO SCH (23:32)
[2019-02-12] MEDS: SIMETHICONE 40 MG/0.6 ML BOTTLE PO SCH ×4 (00:47→12:20)
[2019-02-12] MEDS: diazePAM 2 MG TABLET PO SCH ×2 (05:58→14:58)
[2019-02-12 07:34] LABS: BLOOD UREA NITROGEN 5.4 mg/dL (7-18); CALCIUM 7.9 mg/dL (8.5-10.1); CREATININE 0.7 mg/dL (0.55-1.3); MAGNESIUM 2.3 mg/dL (1.8-2.4); PHOSPHOROUS 2.5 mg/dL (2.5-4.9); POTASSIUM 4.1 mmol/L (3.5-5.1)
[2019-02-12] MEDS ORDERED: PT OWN MED DRAWER 7, Y5N ONE (08:53)
[2019-02-12] MEDS: DOCUSATE SODIUM 100 MG CAPSULE (FP) PO SCH (09:28)
[2019-02-12] MEDS: ENOXAPARIN NA (PORCINE) 40 MG/0.4 ML DISP.SYRIN SQ SCH (09:28)
[2019-02-12] MEDS: MAGNESIUM HYDROX 2400MG/30ML ORAL SUSPENSION 30 ML CUP PO SCH (09:29)
[2019-02-12] MEDS: TOPIRAMATE 25 MG TABLET (FP) PO SCH (09:29)
[2019-02-12] MEDS: cloBAZam 10 MG TABLET PO SCH (09:29)
[2019-02-12] MEDS: LAMOTRIGINE 100 MG, LAMOTRIGINE 25 MG PO SCH (09:34)
--- NOTE | 2019-02-12 13:28 | DS ---
Physical Exam: SUBJECTIVE: Patient seen this morning and at baseline. Patient had multiple BM' s overnight, urinated, and ate food. OBJECTIVE: Vital Signs Period Temp Pulse Resp BP Sys/Vigil Pulse Ox Last 24 Hr 98.1 F-98.7 F 88-101 18-18 90-146/60-64 98-99 PHYSICAL EXAM GENERAL: The patient is awake and alert, non verbal at baseline HEAD: normocephalic EYES: PERRL, ENT: moist mucous membranes. LUNGS: Breath sounds equal, clear to auscultation bilaterally, no wheezes, no crackles, no accessory muscle use. HEART: Regular rate and rhythm, S1, S2 without murmur, rub or gallop. ABDOMEN: distended, no bowel sounds heard EXTREMITIES: contracted, no edema LABS Laboratory Results - last 24 hr 02/12/19 05:40 Sodium 139 Potassium 4.1 Chloride 111 H Carbon Dioxide 23 Anion Gap 6 L BUN 5.4 L Creatinine 0.7 Est GFR (CKD-EPI)AfAm 146.77 Est GFR (CKD-EPI)NonAf 126.64 Random Glucose 110 H Calcium 7.9 L Phosphorus 2.5 Magnesium 2.3 HOSPITAL COURSE: Date of Admission:02/09/19 Patient is a 28 y/o male with a history of MR, seizure disorder, functional quadreplegia, and constipation who presents for constipation. Patient was started on PO medications. After two days patient had multiple bowel movement. Patient was able to tolerate food and urinate. 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 While you were here we gave you fluids and some medication to help you have bowel movements. Your GI system is now working appropriately and you are no longer constipated. It is important that you continue motility agents to ensure that you are having regular bowel movements. Please resume your home medications as prescribed. Please follow up with your primary care doctor, Dr. Mortensen. Return to the Emergency Department if you have any worsening of symptoms, nausea , vomiting, headache, fever, or chills. Referrals: Tc Mortensen Jr [Non Staff, Medical] - Disposition: [facility] - Home Medications Comprehensive Discharge Medication List: Ambulatory Orders Acetaminophen [Tylenol] 325 mg PO Q4H PRN 02/09/19 Acetaminophen [Tylenol] 480 mg PO Q4H PRN 02/09/19 Bisacodyl Suppository [Dulcolax Suppository -] 10 mg RC ASDIR PRN 02/09/19 Clobazam [Onfi -] 10 mg PO BID 02/09/19 Container,Empty [Nasal [place] Bottle] 1 each MC HS 02/09/19 Diazepam 1 mg PO TID 02/09/19 Docusate Sodium [Colace -] 100 mg PO BID 02/09/19 FA/Mv,Ca,Iron,Min/Lycopene/Lut [Centravites Tablet] 1 each PO DAILY 02/09/19 Lamotrigine [Lamictal -] 125 mg PO BID 02/09/19 Loratadine [Claritin -] 10 mg PO BID 02/09/19 Magnesium Hydrox 2400MG/30Ml [Milk of Magnesia -] 35 ml PO BID 02/09/19 Sennosides [Senna -] 100 mg PO BID 02/09/19 Simethicone Liquid [Mylicon Liquid -] 0.6 ml PO Q4H PRN 02/09/19 Sodium Phosphate,[place]-Dibasic [Fleet Enema] 133 ml RC ASDIR PRN 02/09/19 Talc/Cellulos/Chloroxy/Aldioxa [Zeasorb Powder] 71 gm TP BID 02/09/19 Tizanidine HCl [Zanaflex (Nf)] 4 mg PO BID 02/09/19 Topiramate [Topamax] 50 mg PO BID 02/09/19 Bisacodyl Suppository [Dulcolax Suppository -] 10 mg [place] Q72H PRN 02/10/19 Clobazam [Onfi -] 5 mg PO BID 02/10/19 This patient is new to me today: No Emergency Visit: No Critical Care patient: No - Discharge Referral Referred to [facility] Med [facility] No
--- NOTE | 2019-02-12 14:08 | PN ---
Teaching Attending Note Name of Resident: Sylvia Sparks ATTENDING PHYSICIAN STATEMENT I saw and evaluated the patient. I reviewed the resident's note and discussed the case with the resident. I agree with the resident's findings and plan as documented. SUBJECTIVE:asymptomatic. RN reports he had 2 BM since yesterday. tolerating diet OBJECTIVE: Last Vital Signs Temp Pulse Resp BP Pulse Ox 98.4 F 96 H 18 140/60 98 02/12/19 05:14 02/12/19 05:14 02/12/19 05:14 02/12/19 05:14 02/12/19 09:00 General resting comfortable CV S1 S2 RRR no murmur/rub/gallop Lungs CTA B/L no wheezing/rlaes/rhonchi Abdomen soft, +distended NT. 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 Colonic pseudo-obstruction- likely [place] syndrome. having BM, abdomen is now soft. diet advance and tolerating. NOTE that patient is known to have abdominal distention at baseline and as per aid is now back to baseline, also that pt is known to be a picky eater and will refuse to eat foods he dislikes. will need to continue with current bowel regimen with more motility agents then just stool softeners. and regulate that he has regular BM;s. 2. Hypokalemia- resolved 3. spastic diplegia 4. CP- valium 5. epilepsy- home meds resumed. seizure precautions 6. DVT ppx- lovenox 7. will d/c back to [place] today
[2019-02-12 15:10] VITALS: BP 97/68; PULSE 112; TEMP 98
== END 2019-02-12 15:55 | DRG 247 ==
LOC: JER 12:03 → JERBED 18:53 → J8W 02-10 15:20
PROVIDERS: ADMIT Internal Medicine; ATTEND Internal Medicine
DX: K56.699 Other intestinal obstruction unspecified as to partial versus complete obstruction (principal); K59.8 Other specified functional intestinal disorders; E87.6 Hypokalemia; E86.0 Dehydration; Q66.89 Other specified congenital deformities of feet; K59.00 Constipation, unspecified; G80.1 Spastic diplegic cerebral palsy; G40.909 Epilepsy, unspecified, not intractable, without status epilepticus; F72 Severe intellectual disabilities; R53.2 Functional quadriplegia; R33.8 Other retention of urine; H47.299 Other optic atrophy, unspecified eye; Q65.1 Congenital dislocation of hip, bilateral; Z98.2 Presence of cerebrospinal fluid drainage device
CPT/HCPCS: 36415; 71045-TC-FY; 74019-TC-FY; 74177-TC; 80048; 80053; 81003; 83605; 83690; 83735; 84100; 85025; 85027; 85610; 86850; 86900; 86901; 87086; 93005; 93010; 99285-25; J0131; J7030

== ENCOUNTER 2019-05-04 21:32 | Inpatient (IN) | payer OTHER ==
--- NOTE | 2019-05-04 21:47 | PDOC ---
Rapid Medical Evaluation Time Seen by Provider: 05/04/19 21:43 Medical Evaluation: Allergies Allergy/AdvReac Type Severity Reaction Status Date / Time latex Allergy Verified 02/09/19 17:31 05/04/19 21:43 I have performed a brief in-person evaluation of this patient. The patient presents with a chief complaint of: constipation, abdominal distension, hx of fecal impaction, no urinary symptoms Pertinent physical exam findings: distended , firm abdomen, uncomfortable appearing, groaning I have ordered the following: labs, ct The patient will proceed to the ED for further evaluation. Discharge Disposition - Diagnosis Constipation - Referrals - Patient Instructions - Post Discharge Activity
[2019-05-04 22:07] VITALS: BMI 19.1
--- NOTE | 2019-05-05 00:59 | PDOC ---
History of Present Illness - General Chief Complaint: Pain Stated Complaint: ABD DISTENTION/CONSTIPATION Time Seen by Provider: 05/04/19 21:43 - History of Present Illness Initial Comments: 05/05/19 00:58 28 yo M with h/o MR, congenital quadraplegia, epilepsy, chronic constipation, cyclic neutropenia, optic atrophy, non verbal, who p/w abdominal distension. Per patient health aide at bedside to assist in report. Patient health aide reports that patient frquents ED when he has abdominal distension/. Patiernt with constipation treated with PRN fleet enema, bisacodyl suppository. did not receive enema or suppository today per health aide. Per health aide, patient looks slightly more distended than baseline. Last BM today, per health aide, with absent BPR. Patient health aide denies cough, wheezing, leg swelling, N/V, F/C, SOB, urinary complaints, hematuria, BPR, diarrhea,weakness. PMHx: as noted above ROS: as noted Allergies: Latex Past History - Past Medical History Allergies/Adverse Reactions: Allergies Allergy/AdvReac Type Severity Reaction Status Date / Time latex Allergy Verified 05/04/19 21:54 Home Medications: Ambulatory Orders Acetaminophen [Tylenol] 325 mg PO Q4H PRN 02/09/19 Acetaminophen [Tylenol] 480 mg PO Q4H PRN 02/09/19 Bisacodyl Suppository [Dulcolax Suppository -] 10 mg RC ASDIR PRN 02/09/19 Clobazam [Onfi -] 10 mg PO BID 02/09/19 Container,Empty [Nasal [place] Bottle] 1 each HS 02/09/19 Diazepam 1 mg PO TID 02/09/19 Docusate Sodium [Colace -] 100 mg PO BID 02/09/19 FA/Mv,Ca,Iron,Min/Lycopene/Lut [Centravites Tablet] 1 each PO DAILY 02/09/19 Lamotrigine [Lamictal -] 125 mg PO BID 02/09/19 Loratadine [Claritin -] 10 mg PO BID 02/09/19 Magnesium Hydrox 2400MG/30Ml [Milk of Magnesia -] 35 ml PO BID 02/09/19 Sennosides [Senna -] 100 mg PO BID 02/09/19 Simethicone Liquid [Mylicon Liquid -] 0.6 ml PO Q4H PRN 02/09/19 Sodium Phosphate,[place]-Dibasic [Fleet Enema] 133 ml RC ASDIR PRN 02/09/19 Talc/Cellulos/Chloroxy/Aldioxa [Zeasorb Powder] 71 gm TP BID 02/09/19 Tizanidine HCl [Zanaflex (Nf)] 4 mg PO BID 02/09/19 Topiramate [Topamax] 50 mg PO BID 02/09/19 Bisacodyl Suppository [Dulcolax Suppository -] 10 mg [place] Q72H PRN 02/10/19 Clobazam [Onfi -] 5 mg PO BID 02/10/19 COPD: No Other medical history: CP, Mental retardation - Immunization History Immunization Up to Date: Yes - Suicide/Smoking/Psychosocial Hx Smoking History: Never smoked Have you smoked in the past 12 months: No Information on smoking cessation initiated: No Hx Alcohol Use: No Drug/Substance Use Hx: No Substance Use Type: None Hx Substance Use Treatment: No Review of Systems - Review of Systems Comments:: 05/05/19 00:58 Unable to provide 13 point ROS inspection *Physical Exam - Vital Signs Last Vital Signs Temp Pulse Resp BP Pulse Ox 97.4 F L 88 17 145/95 100 05/04/19 21:49 05/04/19 21:49 05/04/19 21:49 05/04/19 21:49 05/04/19 21:49 - Physical Exam Comments: 05/05/19 00:58 GENERAL: Non verbal, non communicative. Awake, alert, in no acute distress HEAD: No signs of trauma, normocephalic, atraumatic EYES: PERRLA, EOMI, sclera anicteric, conjunctiva clear ENT: Auricles normal inspection, nares patent, oropharynx clear without exudates. Moist mucosa NECK: Normal ROM, supple, no lymphadenopathy, JVD, or masses LUNGS: No distress, speaks full sentences, clear to auscultation bilaterally HEART: Regular rate and rhythm, normal S1 and S2, no murmurs, rubs or gallops, peripheral pulses normal and equal bilaterally. ABDOMEN: + Distended. Soft, nontender, normoactive bowel sounds. No guarding, no rebound. No masses. Neg CVA ttp. RECTAL: Minimal brown stool in rectal vault. Neg gross blood, hemorrhoids, fissures. EXTREMITIES : Extremities contracted. Normal inspection, Normal range of motion , no edema. No clubbing or cyanosis NEUROLOGICAL: Cranial nerves II through XII grossly intact. SKIN: Warm, Dry, normal turgor, no rashes or lesions noted ED Treatment Course - LABORATORY CBC & Chemistry Diagram: 05/05/19 03:45 05/05/19 03:45 - RADIOLOGY Radiology Studies Ordered: 05/05/19 02:38 Patient Information: : 1990 Order Type: Preliminary Name: EFREM CORDOVA Sex: M Study Description: CT ABDOMEN AND PELVIS Modality: CT Location: [facility] Referring Physician: JINA EDMONDSON Comments: Iain Cullen MD wrote on May 05, 2019 at 02:07 AM: Referring Physician: JINA EDMONDSON Patient Name: ART TOPETE THIS IS A PRELIMINARY REPORT FROM [facility] DATE OF SERVICE: 2019-05-05 01:41:02 IMAGES: [id number] EXAM: ABDOMEN \T\ PELVIS CT W/O CONTR HISTORY: Abdominal distention COMPARISON: None. FINDINGS: Lung bases are clear. The visualized cardiac chambers are normal size and configuration. Normal unenhanced liver, gallbladder, pancreas, spleen, adrenal glands and kidneys. The stomach and small bowel are normal. There was a large amount of colonic gas with transverse colon distended to 8.3 cm and there is a moderate to large amount of liquid stool. Findings suggest colonic ileus and/or diarrheal illness. Toxic megacolon cannot be excluded. No bowel wall thickening or bowel obstruction There is no aortic aneurysm. There is no significant retroperitoneal lymphadenopathy. CONFIDENTIALITY NOTICE: This information is intended only for the use of the recipient(s) named above. If you are not the intended recipient, or a person responsible for delivering it to the intended recipient, you are hereby notified that any disclosure, copying, distribution or use of any of the information contained in or attached to this transmission is STRICTLY PROHIBITED. If you have received this transmission in error, please immediately notify [employer] and destroy the original transmission and its attachments without saving them in any manner [address] [facility] [employer] [facility] [address] [place] [address] Phone: [phone] ([phone]) Fax: Email: [email or web address] [email or web address] Patient Information: : 1990 Order Type: Preliminary Name: EFREM CORDOVA Sex: M Study Description: CT ABDOMEN AND PELVIS Modality: CT Location: [facility] Referring Physician: JINA EDMONDSON The appendix is normal. The urinary bladder and prostate gland are normal. No pelvic free fluid is identified. There is no significant pelvic lymphadenopathy. IMPRESSION: Significant colonic distention with air and liquid stool could be due to colonic ileus and/or diarrheal illness although a toxic megacolon cannot be excluded. Medical Decision Making - Medical Decision Making 05/05/19 01:17 28 yo M with h/o MR, congenital quadraplegia, epilepsy, chronic constipation, cyclic neutropenia, optic atrophy, non verbal, who p/w abdominal distension. Vitals wnl, AF, Alert. + abdominal distension, nontender. Tolerates PO. Health aide at bedside denies cough, wheezing, leg swelling, N/V, F/C, SOB, urinary complaints, hematuria, BPR, diarrhea,weakness. R/o SBO vs. constipation. Will reassess. Ed Course: CT AP NON CON 05/05/19 02:38 CT AP IMPRESSION: There was a large amount of colonic gas with transverse colon distended to 8.3 cm and there is a moderate to large amount of liquid stool. Significant colonic distention with air and liquid stool could be due to colonic ileus and/or diarrheal illness although a toxic megacolon cannot be excluded. 05/05/19 04:[address] Dejesus/Surgery distribution driver answering service. Awaiting call back. 05/05/19 04:[address] Dejesus. Will come and evaluate pt. 05/05/19 04:56 Laboratory Tests 05/05/19 05/05/19 05/05/19 03:20 03:45 03:45 WBC 6.0 Hgb 14.1 Hct 42.9 Plt Count 243 Sodium 139 Potassium 3.0 L BUN 17.4 Creatinine 0.8 AST 17 ALT 67 H Stool Occult Blood Trace 05/05/19 05:[address] Muñiz. Admitted to med/surg Dr. James. *DC/Admit/Observation/Transfer Diagnosis at time of Disposition: Colon distention - Discharge Dispostion Condition at time of disposition: Stable Decision to Admit order: Yes - Referrals - Patient Instructions - Post Discharge Activity
--- NOTE | 2019-05-05 02:08 | PDOC ---
Documentation entered by Jayden Holliday SCRIBE, acting as scribe for Jessica Wayne MD. Jessica Wayne MD: This documentation has been prepared by the Mg gillette Xhesika, SCRIBE, under my direction and personally reviewed by me in its entirety. I confirm that the documentation accurately reflects all work, treatment, procedures, and medical decision making performed by me. 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 As per aid, the patient had 1 normal BM today. As per aid, the patient was screaming in pain and did not receive any medication for relief of symptoms. 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 ext contracted, thin, nuero nonverbal - Medical Decision Making 05/05/19 02:04 28 yo h/o quad, developmental delay, nonverbal constipation. did have one bm today and does not appear distended currently per aid at bedside. plan ct a/p without contrast. will attempt to obtain labs pt extremely difficulty stick. consider enema mineral oil here in ED
[2019-05-05] MEDS ORDERED: SODIUM CHLORIDE IV ONE (04:17)
[2019-05-05 04:18] LABS: MCH 27.6 pg (25.7-33.7)
[2019-05-05] MEDS ORDERED: LACTATED RINGERS SOLUTION 1,000 ML/1,000 ML INFUS.BAG IV SCH (04:30)
[2019-05-05 04:32] LABS: BASO % 0.5 % (0-2.0); EOS % 3.5 % (0-4.5); HEMATOCRIT 42.9 % (35.4-49); HEMOGLOBIN 14.1 GM/dL (11.7-16.9); LYMPH % 24.9 % (8-40); MCHC 32.8 g/dl (32.0-35.9); MEAN CELL VOLUME 84.3 fl (80-96); MEAN PLT VOLUME 8.3 fl (7.5-11.1); MONO % 7.2 % (3.8-10.2); NEUT % 63.9 % (42.8-82.8); PLATELET COUNT 243 K/MM3 (134-434); RBC 5.09 M/mm3 (4.00-5.60); RDW 14.3 % (11.9-15.9)
[2019-05-05 04:46] LABS: ALBUMIN 3.7 g/dl (3.4-5.0); BILIRUBIN,TOTAL 0.3 mg/dL (0.2-1); BLOOD UREA NITROGEN 17.4 mg/dL (7-18); CREATININE 0.8 mg/dL (0.55-1.3)
[2019-05-05] MEDS ORDERED: KCL 10 MEQ IVPB 10 MEQ/100 ML INFUS.BAG IVPB SCH (05:00)
[2019-05-05] MEDS ORDERED: KCL 10 MEQ IVPB 10 MEQ/100 ML INFUS.BAG IVPB ONE ×3 (05:04→08:14)
--- NOTE | 2019-05-05 05:04 | PN ---
Teaching Attending Note Name of Resident: Sharon Calderon ATTENDING PHYSICIAN STATEMENT I saw and evaluated the patient. I reviewed the resident's note and discussed the case with the resident. I agree with the resident's findings and plan as documented. SUBJECTIVE: Patient is a 28 year old man with quadriplegia coming from [facility] with PMH of Severe intellectual delay, Spastic diplegic Cerebral palsy , Epilepsy with status epilepticus, Constipation, Hammer toe, Cyclic neutropenia , Colonic pseudo-obstruction, Primary optic atrophy and [employer]ILING [employer] HAND shunt catheter who presents with abdominal distension. Patient health aide reports that patient frequents ER when he has abdominal distension. Patiernt with constipation treated with PRN fleet enema and bisacodyl suppository. Did not receive enema or suppository today per health aide. Per health aide, patient looks slightly more distended than baseline. Last BM today, per health aide, with absent BPR. Patient health aide denies cough, wheezing, leg swelling, nausea, vomiting, fever, chills, SOB, urinary complaints, hematuria, BPR, diarrhea or weakness. OBJECTIVE: Alert and agitated Vital Signs Period Temp Pulse Resp BP Sys/Vigil Pulse Ox Last 24 Hr 97.4 F 88 17 145/95 100 HEENT: No Jaundice, eye redness or discharge, PERRLA, EOMI. Normocephalic, atraumatic. External ears are normal and hearing is grossly intact. No nasal discharge. Neck: Supple, nontender. No palpable adenopathy or thyromegaly. No JVD Chest: Good effort. Clear to auscultation and percussion. Heart: Regular. No S3, rub or murmur Abdomen: Distended and tender; soft, nontender and no HSM. No rebound or guarding. Normal bowel sounds. Ext: Peripheral pulses intact. No leg edema. Skin: Warm and dry. No petechiae, rash or ecchymosis. Neuro: Alert. Agitated; nonverbal and unable to follow commands. Psych: Agitated. Current Medications Generic Name Dose Route Start Last Admin Trade Name Freq PRN Reason Stop Dose Admin Potassium Chloride 10 meq in 100 mls @ 100 mls/hr 05/05/19 05:45 05/05/19 06: 45 Potassium Chloride 10 Meq Premix Ivpb - IVPB 05/05/19 07:44 100 mls/hr Q60M [facility] Administration Dextrose/Sodium Chloride 1,000 mls @ 100 mls/hr 05/05/19 06:52 D5-1/2ns - IV ASDIR [facility] Home Medications Medication Instructions Recorded Acetaminophen [Tylenol] 325 mg PO Q4H PRN 02/09/19 Acetaminophen [Tylenol] 480 mg PO Q4H PRN 02/09/19 Bisacodyl Suppository [Dulcolax 10 mg RC ASDIR PRN 02/09/19 Suppository -] Clobazam [Onfi -] 10 mg PO BID 02/09/19 Container,Empty [Nasal [place] 1 each MC HS 02/09/19 Bottle] Diazepam 1 mg PO TID 02/09/19 Docusate Sodium [Colace -] 100 mg PO BID 02/09/19 FA/Mv,Ca,Iron,Min/Lycopene/Lut 1 each PO DAILY 02/09/19 [Centravites Tablet] Lamotrigine [Lamictal -] 125 mg PO BID 02/09/19 Loratadine [Claritin -] 10 mg PO BID 02/09/19 Magnesium Hydrox 2400MG/30Ml [Milk 35 ml PO BID 02/09/19 of Magnesia -] Sennosides [Senna -] 100 mg PO BID 02/09/19 Simethicone Liquid [Mylicon Liquid 0.6 ml PO Q4H PRN 02/09/19 -] Sodium Phosphate,Kinney-Dibasic 133 ml RC ASDIR PRN 02/09/19 [Fleet Enema] Talc/Cellulos/Chloroxy/Aldioxa 71 gm TP BID 02/09/19 [Zeasorb Powder] Tizanidine HCl [Zanaflex (Nf)] 4 mg PO BID 02/09/19 Topiramate [Topamax] 50 mg PO BID 02/09/19 Bisacodyl Suppository [Dulcolax 10 mg KS Q72H PRN 02/10/19 Suppository -] Clobazam [Onfi -] 5 mg PO BID 02/10/19 Abnormal Lab Results 05/05/19 03:45 Potassium 3.0 L Anion Gap 6 L ALT 67 H ASSESSMENT AND PLAN: 1. Abdominal distension - CT abdomen showed colonic distension with lots of liquid stool. Report suggests ileus or toxic megacolon. Surgery consulted. Patient will be kept NPO, check Mg+ and give IV KCL to correct hypokalemia. Avoid any laxatives /sedatives for now pending surgery evaluation. Patient has had a prior admission for pseudo-obstruction. Will continue comprehensive care for all of patients comorbid conditions. 2. DVT prophylaxis - SCD for now 3. Advance directives - Full code
[2019-05-05] MEDS ORDERED: LACTATED RINGERS SOLUTION 1,000 ML IV SCH (05:30)
[2019-05-05 05:45] LABS: MAGNESIUM 2.2 mg/dL (1.8-2.4)
--- NOTE | 2019-05-05 06:24 | HP ---
CHIEF COMPLAINT:distended abdomen PCP:Dr. Anel Denis HISTORY OF PRESENT ILLNESS: Patient is a 28 year old male with past medical history of severe MR, seizure disorder, functional quadriplegia, constipation, and Dundee syndrome, presented to the ED from [facility] as he was noted to have distended abdomen. Patient is nonverbal at baseline and aide at bedside to provide history. As per the aide, patient was brought in to the ED as he was noted to have distended abdomen yesterday. It was reported that his last bowel movement was 2 days ago and medications for his constipation was held yesterday as well. There was no reported fever, chills, seizure activity, vomiting, blood bowel movements or hematuria. Of note, patient was admitted last January 2019 for constipation and colonic dilatation where he was managed conservatively with enema, dulcolax, bisacodyl, senna and colace. He was reported to have large bowel movements afterwards and was discharged with the same regimen for constipation. ER course was notable for: (1)CTAP: Significant colonic distention with air and liquid stool could be due to colonic ileus and/or diarrheal illness although a toxic megacolon cannot be excluded. 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 ORIF Tendon release R. Femoral Osteomy Social History: Smoking:unknown Alcohol:unknown Drugs: unknown Family History:unknown Allergies latex Allergy (Verified 05/04/19 21:54) HOME MEDICATIONS: Home Medications Medication Instructions Recorded Acetaminophen [Tylenol] 325 mg PO Q4H PRN 02/09/19 Acetaminophen [Tylenol] 480 mg PO Q4H PRN 02/09/19 Bisacodyl Suppository [Dulcolax 10 mg RC ASDIR PRN 02/09/19 Suppository -] Clobazam [Onfi -] 10 mg PO BID 02/09/19 Container,Empty [Nasal [place] 1 each MC HS 02/09/19 Bottle] Diazepam 1 mg PO TID 02/09/19 Docusate Sodium [Colace -] 100 mg PO BID 02/09/19 FA/Mv,Ca,Iron,Min/Lycopene/Lut 1 each PO DAILY 02/09/19 [Centravites Tablet] Lamotrigine [Lamictal -] 125 mg PO BID 02/09/19 Loratadine [Claritin -] 10 mg PO BID 02/09/19 Magnesium Hydrox 2400MG/30Ml [Milk 35 ml PO BID 02/09/19 of Magnesia -] Sennosides [Senna -] 100 mg PO BID 02/09/19 Simethicone Liquid [Mylicon Liquid 0.6 ml PO Q4H PRN 02/09/19 -] Sodium Phosphate,Hand-Dibasic 133 ml RC ASDIR PRN 02/09/19 [Fleet Enema] Talc/Cellulos/Chloroxy/Aldioxa 71 gm TP BID 02/09/19 [Zeasorb Powder] Tizanidine HCl [Zanaflex (Nf)] 4 mg PO BID 02/09/19 Topiramate [Topamax] 50 mg PO BID 02/09/19 Bisacodyl Suppository [Dulcolax 10 mg AR Q72H PRN 02/10/19 Suppository -] Clobazam [Onfi -] 5 mg PO BID 02/10/19 REVIEW OF SYSTEMS CONSTITUTIONAL: Absent: fever, chills, diaphoresis, generalized weakness, malaise, loss of appetite, weight change HEENT: Absent: rhinorrhea, nasal congestion, throat pain, throat swelling, difficulty swallowing, mouth swelling, ear pain, eye pain, visual changes CARDIOVASCULAR: Absent: chest pain, syncope, palpitations, irregular heart rate, lightheadedness , peripheral edema RESPIRATORY: Absent: cough, shortness of breath, dyspnea with exertion, orthopnea, wheezing, stridor, hemoptysis GASTROINTESTINAL: Absent: abdominal pain, abdominal distension, nausea, vomiting, diarrhea, constipation, melena, hematochezia GENITOURINARY: Absent: dysuria, frequency, urgency, hesitancy, hematuria, flank pain, genital pain MUSCULOSKELETAL: Absent: myalgia, arthralgia, joint swelling, back pain, neck pain SKIN: Absent: rash, itching, pallor HEMATOLOGIC/IMMUNOLOGIC: Absent: easy bleeding, easy bruising, lymphadenopathy, frequent infections ENDOCRINE: Absent: unexplained weight gain, unexplained weight loss, heat intolerance, cold intolerance NEUROLOGIC: Absent: headache, focal weakness or paresthesias, dizziness, unsteady gait, seizure, mental status changes, bladder or bowel incontinence PSYCHIATRIC: Absent: anxiety, depression, suicidal or homicidal ideation, hallucinations. PHYSICAL EXAMINATION Vital Signs - 24 hr 05/04/19 21:49 Temperature 97.4 F L Pulse Rate 88 Respiratory 17 Rate Blood Pressure 145/95 O2 Sat by Pulse 100 Oximetry (%) GENERAL: Awake, alert, nonverbal, in no acute distress. EYES: EOMI, sclera anicteric, conjunctiva clear. EARS, NOSE, THROAT: Dry mucous membranes. LUNGS: Breath sounds equal, clear to auscultation bilaterally. No wheezes, and no crackles. No accessory muscle use. HEART: Regular rate and rhythm, normal S1 and S2 without murmur, rub or gallop. ABDOMEN: Firm, distended, diffuse tenderness, NABS MUSCULOSKELETAL: B/l Hip deformities which are nontender. No CVA tenderness. UPPER EXTREMITIES: 1+ radial pulses, warm, well-perfused. No peripheral edema. LOWER EXTREMITIES: 1+ dorsal pedal pulses, warm, well-perfused. No peripheral edema. NEUROLOGICAL: Non-verbal, severe MR, Gait not assessed SKIN: Warm, dry, normal turgor Laboratory Results - last 24 hr 05/05/19 05/05/19 05/05/19 03:20 03:45 03:45 WBC 6.0 RBC 5.09 Hgb 14.1 Hct 42.9 MCV 84.3 MCH 27.6 MCHC 32.8 RDW 14.3 Plt Count 243 MPV 8.3 Absolute Neuts (auto) 3.8 Neutrophils % 63.9 Lymphocytes % 24.9 D Monocytes % 7.2 Eosinophils % 3.5 Basophils % 0.5 Nucleated RBC % 0 Sodium 139 Potassium 3.0 L Chloride 105 Carbon Dioxide 29 Anion Gap 6 L BUN 17.4 Creatinine 0.8 Est GFR (CKD-EPI)AfAm 138.93 Est GFR (CKD-EPI)NonAf 119.87 Random Glucose 90 Calcium 9.0 Magnesium 2.2 Total Bilirubin 0.3 AST 17 ALT 67 H Alkaline Phosphatase 72 Total Protein 7.0 Albumin 3.7 Stool Occult Blood Trace ASSESSMENT/PLAN: Patient is a 28 year old male with past medical history of severe MR, seizure disorder, functional quadriplegia, constipation, and Dundee syndrome, presented to the ED from [facility] as he was noted to have distended abdomen. #Colonic distention -CTAP: Significant colonic distention with air and liquid stool could be due to colonic ileus and/or diarrheal illness although a toxic megacolon cannot be excluded. -Surgery (Dr. Dejesus) consulted. Recommendations appreciated. -Keep NPO -IVF -Replete electrolytes PRN #Seizure disorder -continue home meds #Hypokalemia -IV KCl 10meq x3 #FEN -D5-1/2NS at 100cc/hr -routine bmp monitoring -NPO #Prophylaxis -Lovenox 40mg sq daily #Disposition -full code -admit to [facility] Visit type - Emergency Visit Emergency Visit: Yes ED Registration Date: 05/05/19 Care time: The patient presented to the Emergency Department on the above date and was hospitalized for further evaluation of their emergent condition. - New Patient This patient is new to me today: Yes Date on this admission: 05/05/19 - Critical Care Critical Care patient: No ATTENDING PHYSICIAN STATEMENT I saw and evaluated the patient. I reviewed the resident's note and discussed the case with the resident. I agree with the resident's findings and plan as documented. SUBJECTIVE: OBJECTIVE: ASSESSMENT AND PLAN:
[2019-05-05] MEDS ORDERED: DEXTROSE 5%-0.45% SALINE 1,000 ML IV SCH (06:30)
[2019-05-05] MEDS: KCL 10 MEQ IVPB 10 MEQ/100 ML INFUS.BAG IVPB SCH ×2 (06:45→08:22)
[2019-05-05] MEDS: DEXTROSE 5%-0.45% SALINE 1,000 ML IV SCH ×2 (08:22→23:27)
[2019-05-05 09:51] LABS: EPI CELLS 11.9 /HPF (0-5/HPF); HYALINE CASTS 33 /lpf (0-8); PH,URINE >= 9.0 (5.0-8.0); URINE APPEARANCE TURBID; URINE BACTERIA 33.5 /hpf (NEGATIVE); URINE BILIRUBIN NEGATIVE (NEGATIVE); URINE COLOR ORANGE; URINE GLUCOSE (UA) NEGATIVE (NEGATIVE); URINE KETONE NEGATIVE (NEGATIVE); URINE LEUK ESTERASE 2+ (NEGATIVE); URINE NITRITE NEGATIVE (NEGATIVE); URINE PROTEIN TRACE (NEGATIVE); URINE RBC 172 /hpf (0-4); URINE WBC 10 /hpf (0-5)
[2019-05-05] MEDS ORDERED: lamoTRIgine 100 MG TABLET (FP) PO SCH (10:00)
--- NOTE | 2019-05-05 10:43 | EKG ---
Test Reason : Blood Pressure : / mmHG Vent. Rate : 093 BPM Atrial Rate : 093 BPM P-R Int : 128 ms QRS Dur : 072 ms QT Int : 346 ms P-R-T Axes : 045 004 -23 degrees QTc Int : 430 ms NORMAL SINUS RHYTHM MODERATE VOLTAGE CRITERIA FOR LVH, MAY BE NORMAL VARIANT T WAVE ABNORMALITY, CONSIDER INFERIOR ISCHEMIA ABNORMAL ECG WHEN COMPARED WITH ECG OF 09-FEB-2019 17:19, NO SIGNIFICANT CHANGE WAS FOUND T WAVE ABNORMALITY, CONSIDER ANTERIOR ISCHEMIA Confirmed by MD Kalpana, Laci ([id number]) on 05/05/2019 10:43:45 AM Referred By: Confirmed By:Laci Acuna MD
[2019-05-05] MEDS: LAMOTRIGINE 100 MG, LAMOTRIGINE 25 MG PO SCH ×2 (13:11→22:46)
[2019-05-05] MEDS: TOPIRAMATE 25 MG TABLET (FP) PO SCH ×2 (13:12→22:46)
[2019-05-05] MEDS: cloBAZam 10 MG TABLET PO SCH ×4 (13:13→22:46)
[2019-05-05] MEDS: diazePAM 2 MG TABLET PO SCH ×2 (13:13→22:46)
--- NOTE | 2019-05-05 14:34 | PN ---
Physical Exam: SUBJECTIVE: Patient seen and examined OBJECTIVE: Vital Signs Period Temp Pulse Resp BP Sys/Vigil Pulse Ox Last 24 Hr 97.4 F-97.7 F 58-88 17-18 94-145/57-95 100-100 GENERAL: The patient is awake, alert, and fully oriented, in no acute distress. HEAD: Normal with no signs of trauma. EYES: PERRL, extraocular movements intact, sclera anicteric, conjunctiva clear. No ptosis. ENT: Ears normal, nares patent, oropharynx clear without exudates, moist mucous membranes. NECK: Trachea midline, full range of motion, supple. LUNGS: Breath sounds equal, clear to auscultation bilaterally, no wheezes, no crackles, no accessory muscle use. HEART: Regular rate and rhythm, S1, S2 without murmur, rub or gallop. ABDOMEN: Soft, nontender, nondistended, normoactive bowel sounds, no guarding, no rebound, no hepatosplenomegaly, no masses. EXTREMITIES: 2+ pulses, warm, well-perfused, no edema. NEUROLOGICAL: Cranial nerves II through XII grossly intact. Normal speech, gait not observed. PSYCH: Normal mood, normal affect. SKIN: Warm, dry, normal turgor, no rashes or lesions noted Laboratory Results - last 24 hr 05/05/19 05/05/19 05/05/19 03:20 03:45 03:45 WBC 6.0 RBC 5.09 Hgb 14.1 Hct 42.9 MCV 84.3 MCH 27.6 MCHC 32.8 RDW 14.3 Plt Count 243 MPV 8.3 Absolute Neuts (auto) 3.8 Neutrophils % 63.9 Lymphocytes % 24.9 D Monocytes % 7.2 Eosinophils % 3.5 Basophils % 0.5 Nucleated RBC % 0 Sodium 139 Potassium 3.0 L Chloride 105 Carbon Dioxide 29 Anion Gap 6 L BUN 17.4 Creatinine 0.8 Est GFR (CKD-EPI)AfAm 138.93 Est GFR (CKD-EPI)NonAf 119.87 Random Glucose 90 Calcium 9.0 Magnesium 2.2 Total Bilirubin 0.3 AST 17 ALT 67 H Alkaline Phosphatase 72 Total Protein 7.0 Albumin 3.7 Urine Color Urine Appearance Urine pH Ur Specific [place] Urine Protein Urine Glucose (UA) Urine Ketones Urine Blood Urine Nitrite Urine Bilirubin Urine Urobilinogen Ur Leukocyte Esterase Urine WBC (Auto) Urine RBC (Auto) Urine Casts (Auto) U Epithel Cells (Auto) U Sm Round Cell (Auto) Urine Bacteria (Auto) Stool Occult Blood Trace 05/05/19 07:30 WBC RBC Hgb Hct MCV MCH MCHC RDW Plt Count MPV Absolute Neuts (auto) Neutrophils % Lymphocytes % Monocytes % Eosinophils % Basophils % Nucleated RBC % Sodium Potassium Chloride Carbon Dioxide Anion Gap BUN Creatinine Est GFR (CKD-EPI)AfAm Est GFR (CKD-EPI)NonAf Random Glucose Calcium Magnesium Total Bilirubin AST ALT Alkaline Phosphatase Total Protein Albumin Urine Color Scurry Urine Appearance Turbid Urine pH >= 9.0 H Ur Specific [place] 1.022 Urine Protein Trace Urine Glucose (UA) Negative Urine Ketones Negative Urine Blood 3+ H Urine Nitrite Negative Urine Bilirubin Negative Urine Urobilinogen 1.0 Ur Leukocyte Esterase 2+ H Urine WBC (Auto) 10 Urine RBC (Auto) 172 Urine Casts (Auto) 33 U Epithel Cells (Auto) 11.9 U Sm Round Cell (Auto) None seen Urine Bacteria (Auto) 33.5 Stool Occult Blood Active Medications Generic Name Dose Route Start Last Admin Trade Name Freq PRN Reason Stop Dose Admin Clobazam 5 mg 05/05/19 10:00 05/05/19 13:13 Onfi - PO 5 mg BID [facility] Administration Clobazam 10 mg 05/05/19 10:00 05/05/19 13:13 Onfi - PO 10 mg BID [facility] Administration Diazepam 1 mg 05/05/19 14:00 05/05/19 13:13 Valium - PO 1 mg TID [facility] Administration Dextrose/Sodium Chloride 1,000 mls @ 100 mls/hr 05/05/19 06:52 05/05/19 08:22 D5-1/2ns - IV 100 mls/hr ASDIR [facility] Administration Lamotrigine 100 mg/ 125 mg 05/05/19 10:00 05/05/19 13:11 Lamotrigine 25 mg PO 125 mg BID [facility] Administration Topiramate 50 mg 05/05/19 10:00 05/05/19 13:12 Topamax - PO 50 mg BID [facility] Administration ASSESSMENT/PLAN: ATTENDING PHYSICIAN STATEMENT I saw and evaluated the patient. I reviewed the resident's note and discussed the case with the resident. I agree with the resident's findings and plan as documented. SUBJECTIVE: OBJECTIVE: ASSESSMENT AND PLAN:
--- NOTE | 2019-05-05 15:10 | CONSULT ---
Consult Consult Specialty:: General Surgery Referred by:: Jayme Enciso Reason for Consultation:: abd distention, colonic distention, constipation - History of Present Illness Chief Complaint: pt cannot provide History of Present Illness: 28yo nonverbal M from [place], with severe MR, congenital spastic CP, functional quadriplegia, seizure d/o, s/p COMMERCIAL CREDIT OFFICER shunt (h/o Gr 4 IVH as ), constipation on routine bowel regimen, who was sent to ED with abdominal distention more than usual. He had not had enema or suppository yesterday. History is very limited and from chart only. CT was done showing pancolonic distention and soft/liquid stool in rectosigmoid of moderate to large amount. ED rectal exam is noted as having only small amount of soft brown stool in vault. He is known to me from several months ago with similar presentation - colon distention and need to evacuate gas and (previously minimal) stool. Surgery was asked to assess. He is seen in his bed with [place] aide present. She has only been with him tonight and last night and does not know his full current history (of this episode). He seems comfortable, though nonverbal, and is looking around. Minimal guttural vocalizations. His abdomen is notably flatter and softer than reported yesterday, and per aide is much improved. He has been passing gas today. No significant BMs per nursing. 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, Other (profound MR, CP, spastic quadriplegia, h/o IVH with COMMERCIAL CREDIT OFFICER shunt as infant, nonverbal (grunts, vocalizes only)) Gastrointestinal: Yes: Constipation Musculoskeletal: Yes: Other (functional quadriplegia, limb contractures, hammer toes) - Past Surgical History Additional Surgical History: COMMERCIAL CREDIT OFFICER shunt, multiple tendon releases, right hip osteotomy/fixation - Alcohol/Substance Use Hx Alcohol Use: No History of Substance Use: reports: None - Smoking History Smoking history: Never smoked Have you smoked in the past 12 months: No - Social History Usual Living Arrangement: Snf ADL: Support Services Home Medications - Allergies Allergies/Adverse Reactions: Allergies Allergy/AdvReac Type Severity Reaction Status Date / Time latex Allergy Verified 05/04/19 21:54 - Home Medications Home Medications: Ambulatory Orders Acetaminophen [Tylenol] 650 mg PO Q4H PRN 02/09/19 Clobazam [Onfi -] 10 mg PO HS 02/09/19 Container,Empty [Nasal [place] Bottle] 1 each MC HS 02/09/19 Diazepam 1 mg PO TID 02/09/19 FA/Mv,Ca,Iron,Min/Lycopene/Lut [Centravites Tablet] 1 each PO DAILY 02/09/19 Lamotrigine [Lamictal -] 125 mg PO BID 02/09/19 Loratadine [Claritin -] 10 mg PO HS 02/09/19 Magnesium Hydrox 2400MG/30Ml [Milk of Magnesia -] 35 ml PO BID 02/09/19 Sennosides [Senna -] 2 tab PO HS 02/09/19 Sodium Phosphate,[place]-Dibasic [Fleet Enema] 133 ml RC ASDIR PRN 02/09/19 Tizanidine HCl [Zanaflex (Nf)] 4 mg PO BID 02/09/19 Topiramate [Topamax] 50 mg PO BID 02/09/19 Clobazam [Onfi -] 5 mg PO AM 02/10/19 Bisacodyl Suppository [Dulcolax Suppository -] 10 mg NM PRN PRN 05/05/19 Cholecalciferol (Vitamin D3) [Vitamin D3] 400 iu PO BID 05/05/19 Fluticasone Prop 0.05% Nasal [Flonase -] 1 - 2 spray NS DAILY 05/05/19 Simethicone 80 mg PO PRN 05/05/19 Wheat Dextrin/Calcium Carb [Cvs Easy Fiber Chewable Tablet] 1 tab PO DAILY 05/05 Family Disease History - Family Disease History Family History: Unable to Obtain Review of Systems Unable to obtain ROS, reason: pt nonverbal/cant provide Physical Exam Vital Signs: Vital Signs Temperature 97.7 F 05/05/19 08:00 Pulse Rate 58 L 05/05/19 09:54 Respiratory Rate 18 05/05/19 09:54 Blood Pressure 94/57 L 05/05/19 09:54 O2 Sat by Pulse Oximetry (%) 100 05/05/19 09:54 Constitutional: Yes: No Distress, Calm, Other (small/thin but well nourished) Eyes: Yes: Conjunctiva Clear, EOM Intact HENT: Yes: Atraumatic, Normocephalic Neck: Yes: Supple, Trachea Midline Cardiovascular: Yes: Regular Rate and Rhythm Respiratory: Yes: Regular, CTA Bilaterally Gastrointestinal: Yes: Normal Bowel Sounds, Soft, Distention (mild only, minimal ). No: Tenderness (pt vocalized at first on palpation, but did not seem to mind after that) ...Rectal Exam: Yes: Other (sphincter tone high - soft, liquidy, light brown stool in vault - cannot evacuate because of consistency). No: Hemorrhoids/ External Renal/: Yes: Incontinence (diaper on, not wet now). No: Murphy Present Musculoskeletal: Yes: Joint Stiffness (contractures). No: Joint Swelling Extremities: Yes: External Rotation (hips), Other (contracted limbs, hammer toes ). No: Cool, Cyanosis Edema: No Peripheral Pulses WNL: Yes Integumentary: No: Jaundice, Rash Neurological: Yes: Alert, Pre-Existing Deficit, Other (nonverbal) Psychiatric: Yes: Alert. No: Agitated Labs: CBC, BMP 05/05/19 03:45 05/05/19 03:45 CMP Sodium 139 mmol/L (136-145) 05/05/19 03:45 Potassium 3.0 mmol/L (3.5-5.1) L 05/05/19 03:45 Chloride 105 mmol/L (98-107) 05/05/19 03:45 Carbon Dioxide 29 mmol/L (21-32) 05/05/19 03:45 Anion Gap 6 MMOL/L (8-16) L 05/05/19 03:45 BUN 17.4 mg/dL (7-18) 05/05/19 03:45 Creatinine 0.8 mg/dL (0.55-1.3) 05/05/19 03:45 Est GFR (CKD-EPI)AfAm 138.93 05/05/19 03:45 Est GFR (CKD-EPI)NonAf 119.87 05/05/19 03:45 Random Glucose 90 mg/dL (74-106) 05/05/19 03:45 Calcium 9.0 mg/dL (8.5-10.1) 05/05/19 03:45 Magnesium 2.2 mg/dL (1.8-2.4) 05/05/19 03:45 Total Bilirubin 0.3 mg/dL (0.2-1) 05/05/19 03:45 AST 17 U/L (15-37) 05/05/19 03:45 ALT 67 U/L (13-61) H 05/05/19 03:45 Alkaline Phosphatase 72 U/L (45-117) 05/05/19 03:45 Total Protein 7.0 g/dl (6.4-8.2) 05/05/19 03:45 Albumin 3.7 g/dl (3.4-5.0) 05/05/19 03:45 Urine Test Results Urine Color [place] 05/05/19 07:30 Urine Appearance Turbid 05/05/19 07:30 Urine pH >= 9.0 (5.0-8.0) H 05/05/19 07:30 Ur Specific [place] 1.022 (1.010-1.035) 05/05/19 07:30 Urine Protein Trace (NEGATIVE) 05/05/19 07:30 Urine Glucose (UA) Negative (NEGATIVE) 05/05/19 07:30 Urine Ketones Negative (NEGATIVE) 05/05/19 07:30 Urine Blood 3+ (NEGATIVE) H 05/05/19 07:30 Urine Nitrite Negative (NEGATIVE) 05/05/19 07:30 Urine Bilirubin Negative (NEGATIVE) 05/05/19 07:30 Ur Leukocyte Esterase 2+ (NEGATIVE) H 05/05/19 07:30 K+ very low today Imaging - Results Cat Scan: Report Reviewed, Image Reviewed (images reviewed - dilated colon throughout, soft-appearing stool in rectosigmoid) Problem List - Problems (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 - OTHER SPECIFIED FUNCTIONAL INTESTINAL DISORDERS (2) Abdominal distention Assessment/Plan: improved - abdomen soft, flatter, nontender Code(s): R14.0 - ABDOMINAL DISTENSION (GASEOUS) (3) Congenital spastic cerebral palsy Code(s): G80.1 - SPASTIC DIPLEGIC CEREBRAL PALSY (4) Epilepsy without status epilepticus, not intractable Code(s): G40.909 - EPILEPSY, UNSP, NOT INTRACTABLE, WITHOUT STATUS EPILEPTICUS Qualifiers: Epilepsy type: unspecified Qualified Code(s): G40.909 - Epilepsy, unspecified, not intractable, without status epilepticus (5) Profound mental handicap Code(s): F73 - PROFOUND INTELLECTUAL DISABILITIES (6) S/P ventriculoperitoneal shunt Code(s): Z98.2 - PRESENCE OF CEREBROSPINAL FLUID DRAINAGE DEVICE Assessment/Plan pt with poor colonic motility and high sphincter tone relies on motility agents and mechanical evacuation for much of bowel function would continue home senna nightly, syrup if pt is not swallowing pills consider routine digital rectal exams, to help stimulate evacuation and evaluate for presence of any formed stool that can be disimpacted pt needs less stool SOFTENERS and more STIMULANT meds may benefit from enema at some point, but currently with stool too liquid to evacuate easily discussed with Dr. Yap, covering for primary team would resume po tomorrow if pt will take some
[2019-05-06] MEDS ORDERED: SENNOSIDES 8.6MG TABLET (FP) PO ONE (00:18)
[2019-05-06] MEDS: diazePAM 2 MG TABLET PO SCH ×2 (06:11→14:56)
[2019-05-06 08:00] LABS: BASO % 1.4 % (0-2.0); EOS % 4.3 % (0-4.5); HEMATOCRIT 46.6 % (35.4-49); HEMOGLOBIN 15.7 GM/dL (11.7-16.9); LYMPH % 20.1 % (8-40); MCH 28.3 pg (25.7-33.7); MCHC 33.6 g/dl (32.0-35.9); MEAN CELL VOLUME 84.3 fl (80-96); MEAN PLT VOLUME 7.9 fl (7.5-11.1); MONO % 11.6 % (3.8-10.2); NEUT % 62.6 % (42.8-82.8); PLATELET COUNT 218 K/MM3 (134-434); RBC 5.53 M/mm3 (4.00-5.60); RDW 14.1 % (11.9-15.9); WHITE BLOOD COUNT 2.7 K/mm3 (4.0-10.0)
[2019-05-06 08:28] LABS: BILIRUBIN,TOTAL 0.4 mg/dL (0.2-1); BLOOD UREA NITROGEN 5.2 mg/dL (7-18); CALCIUM 9.5 mg/dL (8.5-10.1); CREATININE 0.7 mg/dL (0.55-1.3); MAGNESIUM 1.9 mg/dL (1.8-2.4); PHOSPHOROUS 3.2 mg/dL (2.5-4.9); POTASSIUM 3.6 mmol/L (3.5-5.1); TOT PROT 7.6 g/dl (6.4-8.2)
[2019-05-06] MEDS: DEXTROSE 5%-0.45% SALINE 1,000 ML IV SCH (10:58)
[2019-05-06] MEDS: LAMOTRIGINE 100 MG, LAMOTRIGINE 25 MG PO SCH (11:02)
[2019-05-06] MEDS: TOPIRAMATE 25 MG TABLET (FP) PO SCH (11:03)
[2019-05-06] MEDS: cloBAZam 10 MG TABLET PO SCH ×2 (11:11→11:12)
[2019-05-06] MEDS ORDERED: METOCLOPRAMIDE HCL INJECTION 10 MG/2 ML VIAL IVPUSH PRN (11:27)
[2019-05-06] MEDS ORDERED: CEFTRIAXONE 1 GM in DEXTROSE 5%-WATER - 50 ML IVPB SCH (11:30)
[2019-05-06] MEDS ORDERED: cefTRIAXone SODIUM 1 GM VIAL ONE (11:53)
[2019-05-06] MEDS ORDERED: DEXTROSE 5%-WATER - 50 ML IVPB ONE (11:53)
--- NOTE | 2019-05-06 13:30 | PN ---
Teaching Attending Note Name of Resident: Carlso Warren ATTENDING PHYSICIAN STATEMENT I saw and evaluated the patient. I reviewed the resident's note and discussed the case with the resident. I agree with the resident's findings and plan as documented. SUBJECTIVE:resting comfortable OBJECTIVE: Last Vital Signs Temp Pulse Resp BP Pulse Ox 97.6 F 69 18 108/69 99 05/06/19 10:00 05/06/19 10:00 05/06/19 10:00 05/06/19 10:00 05/05/19 21:00 General NAD, nonverbal, grunts on exam CV S1 s2 RRR no murmur/rub/gallop Lungs CTA B/L no wheezing/rales/rhonchi Abdomen soft +distended tympanic. 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 Colonic pseudo-obstruction- has had previous hospitalization for same presentation. needs to work on motility agents then softening agents. add reglan to regimen. hold enema and other softening agents. will advance diet and see if can tolerate. 2. UTI- UA+. will obtain Ucx. give ceftriaxone and switch to bactrim on discharge for 3 days. can have urology follow up as outpatient 3. spastic diplegia 4. CP- valium 5. epilepsy- medications switched to IV. monitor for seizure activity. seizure precautions 6. DVT ppx- lovenox 7. if tolerates diet can return to [place] today. Ucx can be followed by PMD
--- NOTE | 2019-05-06 13:34 | PN ---
Physical Exam: SUBJECTIVE: Patient seen and examined OBJECTIVE: Vital Signs Period Temp Pulse Resp BP Sys/Vigil Pulse Ox Last 24 Hr 97.5 F-98.5 F 62-69 16-18 99-150/59-85 99 GENERAL: The patient is awake, alert, and fully oriented, in no acute distress. HEAD: Normal with no signs of trauma. EYES: PERRL, extraocular movements intact, sclera anicteric, conjunctiva clear. No ptosis. ENT: Ears normal, nares patent, oropharynx clear without exudates, moist mucous membranes. NECK: Trachea midline, full range of motion, supple. LUNGS: Breath sounds equal, clear to auscultation bilaterally, no wheezes, no crackles, no accessory muscle use. HEART: Regular rate and rhythm, S1, S2 without murmur, rub or gallop. ABDOMEN: Soft, nontender, nondistended, normoactive bowel sounds, no guarding, no rebound, no hepatosplenomegaly, no masses. EXTREMITIES: 2+ pulses, warm, well-perfused, no edema. NEUROLOGICAL: Cranial nerves II through XII grossly intact. Normal speech, gait not observed. PSYCH: Normal mood, normal affect. SKIN: Warm, dry, normal turgor, no rashes or lesions noted Laboratory Results - last 24 hr 05/06/19 05/06/19 05/06/19 07:15 07:15 09:05 WBC 2.7 L RBC 5.53 Hgb 15.7 Hct 46.6 MCV 84.3 MCH 28.3 MCHC 33.6 RDW 14.1 Plt Count 218 MPV 7.9 Absolute Neuts (auto) 1.7 Neutrophils % 62.6 Lymphocytes % 20.1 Monocytes % 11.6 H Eosinophils % 4.3 Basophils % 1.4 Nucleated RBC % 0 Sodium 138 Potassium 3.6 Chloride 108 H Carbon Dioxide 23 Anion Gap 7 L BUN 5.2 L Creatinine 0.7 Est GFR (CKD-EPI)AfAm 146.77 Est GFR (CKD-EPI)NonAf 126.64 Random Glucose 121 H Calcium 9.5 Phosphorus 3.2 Magnesium 1.9 Total Bilirubin 0.4 AST 10 L ALT 51 Alkaline Phosphatase 84 Total Protein 7.6 Albumin 4.0 Blood Type B POSITIVE Antibody Screen Negative Active Medications Generic Name Dose Route Start Last Admin Trade Name Freq PRN Reason Stop Dose Admin Clobazam 5 mg 05/05/19 10:00 05/06/19 11:11 Onfi - PO 5 mg BID LINETTE Administration Clobazam 10 mg 05/05/19 10:00 05/06/19 11:12 Onfi - PO 10 mg BID LINETTE Administration Diazepam 1 mg 05/05/19 14:00 05/06/19 06:11 Valium - PO 1 mg TID LINETTE Administration Dextrose/Sodium Chloride 1,000 mls @ 100 mls/hr 05/05/19 06:52 05/06/19 10:58 D5-1/2ns - IV 100 mls/hr ASDIR LINETTE Administration Ceftriaxone Sodium 1 gm/ 50 mls @ 100 mls/hr 05/06/19 11:30 Dextrose IVPB DAILY LINETTE Protocol Lamotrigine 100 mg/ 125 mg 05/05/19 10:00 05/06/19 11:02 Lamotrigine 25 mg PO 125 mg BID LINETTE Administration Metoclopramide HCl 10 mg 05/06/19 11:27 Reglan Injection - IVPUSH Q8H PRN NAUSEA AND/OR VOMITING Senna 17.6 mg 05/06/19 22:00 Senna Oral Solution - PO HS LINETTE Topiramate 50 mg 05/05/19 10:00 05/06/19 11:03 Topamax - PO 50 mg BID LINETTE Administration ASSESSMENT/PLAN: ATTENDING PHYSICIAN STATEMENT I saw and evaluated the patient. I reviewed the resident's note and discussed the case with the resident. I agree with the resident's findings and plan as documented. SUBJECTIVE: OBJECTIVE: ASSESSMENT AND PLAN:
[2019-05-06 14:27] VITALS: BP 133/83; PULSE 88; TEMP 97.3
--- NOTE | 2019-05-06 18:37 | DS ---
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 Overnight pt passed large BM. This morning he is back to baseline per resident aide. OBJECTIVE: Vital Signs Period Temp Pulse Resp BP Sys/Vigil Pulse Ox Last 24 Hr 97.3 F-98.5 F 64-88 16-20 99-150/59-85 99-100 PHYSICAL EXAM GENERAL: The patient is awake, alert, NOT oriented, in no acute distress. Non- verbal. HEAD: Microcephalic, atraumatic EYES: REJI EOMI,, sclera anicteric, conjunctiva clear. ENT: Ears normal, nares patent, oropharynx clear without exudates, moist mucous membranes. NECK: Trachea midline, full range of motion, supple. LUNGS: Breath sounds equal, clear to auscultation bilaterally, no wheezes, no crackles, no accessory muscle use. HEART: Regular rate and rhythm, S1, S2 without murmur, rub or gallop. ABDOMEN: Protuberant. Firm. Mildly distended. + BS in 4 quadrants. EXTREMITIES: BL LE malformed. 2+ pulses, warm, well-perfused, no edema. SKIN: Warm, dry, normal turgor, no rashes or lesions noted. LABS Laboratory Results - last 24 hr 05/06/19 05/06/19 05/06/19 07:15 07:15 09:05 WBC 2.7 L RBC 5.53 Hgb 15.7 Hct 46.6 MCV 84.3 MCH 28.3 MCHC 33.6 RDW 14.1 Plt Count 218 MPV 7.9 Absolute Neuts (auto) 1.7 Neutrophils % 62.6 Lymphocytes % 20.1 Monocytes % 11.6 H Eosinophils % 4.3 Basophils % 1.4 Nucleated RBC % 0 Sodium 138 Potassium 3.6 Chloride 108 H Carbon Dioxide 23 Anion Gap 7 L BUN 5.2 L Creatinine 0.7 Est GFR (CKD-EPI)AfAm 146.77 Est GFR (CKD-EPI)NonAf 126.64 Random Glucose 121 H Calcium 9.5 Phosphorus 3.2 Magnesium 1.9 Total Bilirubin 0.4 AST 10 L ALT 51 Alkaline Phosphatase 84 Total Protein 7.6 Albumin 4.0 Blood Type B POSITIVE Antibody Screen Negative HOSPITAL COURSE: Date of Admission:05/05/19 28 y/o male with PMH cerebral palsy, epilepsy disorder with status epilepticus, chronic constipation, hammer toe, cyclic neutropenia, primary optic atrophy and 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 Imagining demonstrated soft stools. Pt has many previous hospitalizations for the same presentation. He was seen by surgery whom advised focus on motility agents over softening agents. Reglan was added to routine bowel regimen. Enema and other softening agents were held. During stay, pt found to have UTI and was treated with ceftriaxone; dc on bactrim for 3 days with urology follow up as outpatient. Chronic diseases were managed with home regimen. Pt dc to [place]. today. Date of Discharge: 05/06/19 Carlos Warren MD Minutes to complete discharge: 40 Discharge Summary Problems reviewed: Yes Reason For Visit: COLON DISTENTION Current Active Problems Colon distention (Acute) Condition: Stable - Instructions Diet, Activity, Other Instructions: YOUR VISIT You came to the hospital because you were experiencing abdominal discomfort. You were evaluated by the general surgeon, and no intervention was necessary. You were treated with medication to aid with bowel movement, and are discharged back to [facility]. Your urinalysis was significant for an infection and you were treated with antibiotic (Ceftriaxone). MEDICATIONS Please continue to take your home medications as prescribed. You have *NEW* mediation. -Take Senna 2 tablets in the evening to improve bowel motility. -You have been started on Reglan 10mg four times per day to improve bowel motility. -Continue antibiotic Bactrim DS 1 tablet every 12 hours for the next three days. Follow urine cultures for appropriate antibiotic regimen. ADDITIONAL CARE Follow up with primary care physician Dr. Mortensen. Please make an appointment to see a urologist 1 week from today. We have provided a referral for you so that you may receive further care and prevention of urinary tract infections. ADDITIONAL INFORMATION Please call 911 or come directly to the emergency department if you experience unusual headache, vision change, shortness of breath, chest pain, numbness, tingling, loss of alertness/awareness, loss of function, unusual bleeding or any alarming symptoms. Referrals: Nicholas Barraza MD [Staff Physician] - Disposition: HOME - Home Medications Comprehensive Discharge Medication List: Ambulatory Orders Acetaminophen [Tylenol] 650 mg PO Q4H PRN 02/09/19 Clobazam [Onfi -] 10 mg PO HS 02/09/19 Container,Empty [Nasal [place] Bottle] 1 each MC HS 02/09/19 Diazepam 1 mg PO TID 02/09/19 FA/Mv,Ca,Iron,Min/Lycopene/Lut [Centravites Tablet] 1 each PO DAILY 02/09/19 Lamotrigine [LaMICtal -] 125 mg PO BID 02/09/19 Loratadine [Claritin -] 10 mg PO HS 02/09/19 Magnesium Hydrox 2400MG/30Ml [Milk of Magnesia -] 35 ml PO BID 02/09/19 Sodium Phosphate,[place]-Dibasic [Fleet Enema] 133 ml RC ASDIR PRN 02/09/19 Tizanidine HCl [Zanaflex (Nf) -] 4 mg PO BID 02/09/19 Topiramate [Topamax -] 50 mg PO BID 02/09/19 Clobazam [Onfi -] 5 mg PO AM 02/10/19 Bisacodyl Suppository [Dulcolax Suppository -] 10 mg [place] PRN PRN 05/05/19 Cholecalciferol (Vitamin D3) [Vitamin D3] 400 iu PO BID 05/05/19 Fluticasone Prop 0.05% Nasal [Flonase -] 1 - 2 spray NS DAILY 05/05/19 Simethicone 80 mg PO PRN 05/05/19 Wheat Dextrin/Calcium Carb [Cvs Easy Fiber Chewable Tablet] 1 tab PO DAILY 05/05 Metoclopramide HCl [Reglan -] 10 mg PO QID #120 tablet 05/06/19 Sennosides [Senna] 2 tab PO HS 30 Days #60 tablet 05/06/19 Sulfamethoxazole/Trimethoprim [Bactrim Ds Tablet] 1 each PO Q12H 3 Days #6 tablet 05/06/19 This patient is new to me today: No Emergency Visit: No Critical Care patient: No - Discharge Referral Referred to [facility] No ATTENDING PHYSICIAN STATEMENT I saw and evaluated the patient. I reviewed the resident's note and discussed the case with the resident. I agree with the resident's findings and plan as documented. SUBJECTIVE: OBJECTIVE: ASSESSMENT AND PLAN:
[2019-05-06] MEDS ORDERED: SENNOSIDES 8.8 MG/5 ML BULK BOTTLE PO SCH (22:00)
[2019-05-06] MEDS ORDERED: SENNOSIDES 8.6MG TABLET (FP) PO SCH (22:00)
== END 2019-05-06 19:11 | disposition home or self-care (01) | DRG 247 ==
LOC: JER 21:32 → JERBED 05-05 04:57 → J7W 05-05 10:54
PROVIDERS: ADMIT Internal Medicine; ATTEND Internal Medicine
DX: K56.699 Other intestinal obstruction unspecified as to partial versus complete obstruction (principal); E87.6 Hypokalemia; G40.909 Epilepsy, unspecified, not intractable, without status epilepticus; N39.0 Urinary tract infection, site not specified; G80.8 Other cerebral palsy; H47.20 Unspecified optic atrophy; F73 Profound intellectual disabilities; R53.2 Functional quadriplegia
CPT/HCPCS: 36415; 74176-TC; 80053; 81003; 82272; 83735; 84100; 85025; 86850; 86900; 86901; 87086; 93005; 93010; 99285-25; J7030

== ENCOUNTER 2019-05-11 11:06 | Inpatient (IN) | payer OTHER ==
[2019-05-11 11:18] VITALS: BMI 18.8
[2019-05-11] MEDS ORDERED: SODIUM CHLORIDE 1,000 ML IV STA (14:24)
--- NOTE | 2019-05-11 14:36 | PDOC ---
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 Aide is not familiar with patient but states that patient has a good appetite but has not been eating. Per records, patient has been having abdominal distention since last night. He received a soapsud enema which resulted in a large bowel movement and one episode of "brownish" emesis. Abdomen remains distended, refusing to eat. Per records, patient had similar symptoms in March of this year. Unable to obtain information from patient. PMD: Festus PMH: see hpi PSH: see hpi Meds: see med rec Allergies: nkda Past History - Past Medical History Allergies/Adverse Reactions: Allergies Allergy/AdvReac Type Severity Reaction Status Date / Time latex Allergy Verified 05/11/19 11:17 Home Medications: Ambulatory Orders Acetaminophen [Tylenol] 650 mg PO Q4H PRN 02/09/19 Diazepam 1 mg PO TID 02/09/19 FA/Mv,Ca,Iron,Min/Lycopene/Lut [Centravites Tablet] 1 each PO DAILY 02/09/19 Lamotrigine [LaMICtal -] 125 mg PO BID 02/09/19 Loratadine [Claritin -] 10 mg PO HS 02/09/19 Magnesium Hydrox 2400MG/30Ml [Milk of Magnesia -] 35 ml PO BID 02/09/19 Tizanidine HCl [Zanaflex (Nf) -] 4 mg PO BID 02/09/19 Bisacodyl Suppository [Dulcolax Suppository -] 10 mg CO PRN PRN 05/05/19 Cholecalciferol (Vitamin D3) [Vitamin D3] 400 iu PO BID 05/05/19 Fluticasone Prop 0.05% Nasal [Flonase -] 1 - 2 spray NS DAILY 05/05/19 Simethicone 80 mg PO PRN 09/17/19 Sennosides [Senna] 2 tab PO HS 30 Days #60 tablet 05/06/19 Clobazam [Onfi -] 10 mg PO BID 05/11/19 Anemia: No Asthma: No COPD: No Other medical history: quadraplegia, 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, Wheelchair bound, contracted - Immunization History Immunization Up to Date: Yes - Suicide/Smoking/Psychosocial Hx Smoking History: Never smoked Have you smoked in the past 12 months: No Information on smoking cessation initiated: No Hx Alcohol Use: No Drug/Substance Use Hx: No Substance Use Type: None Hx Substance Use Treatment: No Review of Systems - Review of Systems Able to Perform ROS?: No *Physical Exam - Vital Signs Last Vital Signs Temp Pulse Resp BP Pulse Ox 98.6 F 92 H 19 129/102 H 96 05/11/19 11:16 05/11/19 11:16 05/11/19 11:16 05/11/19 11:16 05/11/19 11:16 - Physical Exam General Appearance: Yes: Nourished, Appropriately Dressed, Other (megalocephaly) . No: Apparent Distress HEENT: positive: EOMI, FAN, Pharynx Normal, Other (moist membranes) Neck: negative: Lymphadenopathy (R), Lymphadenopathy (L) Respiratory/Chest: positive: Lungs Clear, Normal Breath Sounds Cardiovascular: positive: Regular Rhythm, Regular Rate, S1, S2. negative: Edema , JVD, Murmur Gastrointestinal/Abdominal: positive: Decreased BS, Distended. negative: Tender , Pulsatile Mass, Guarding, Rebound, Hernia, Mass Extremity: negative: Pedal Edema, Swelling, Calf Tenderness Integumentary: positive: Normal Color, Dry, Warm Neurologic: positive: Alert, Other (exam limited by severe MR). negative: Fully Oriented (unable to assess) ED Treatment Course - LABORATORY CBC & Chemistry Diagram: 05/11/19 15:40 05/11/19 16:42 - RADIOLOGY Radiology Studies Ordered: Category Date Time Status ABDOMEN-KUB FLAT PLATE [RAD] Stat Radiology 05/11/19 14:24 Ordered CHEST X-RAY PORTABLE* [RAD] Stat Radiology 05/11/19 14:24 Ordered Medical Decision Making - Medical Decision Making 05/11/19 14:36 28yo M presenting for abdominal distention, refusing to eat after enema last night. on exam, patient has distention, dullness to percussion, reduced bowel sounds. No rebound or guarding. seems to have had bowel movement. Has had similar presentations in the past. ddx includes but not limited to perforation, obstruction, volvulus, impaction. will obtain labs, ctap, ua/ucx. will give fluids for hydration. 05/11/19 16:58 labs hemolyzed, reorderd. CT: Since a prior study of 05/05/2019, there remains marked dilatation of small and large bowel loops throughout the abdomen and pelvis without obvious obstruction. A amount of colonic stool has decreased. There does remain a large amount of predominantly liquid stool within the sigmoid colon and rectum. There has developed patchy consolidation within the left lower lobe. This is concerning for acute pneumonia. There is no evidence of pneumoperitoneum or intra-abdominal abscess. IMPRESSION: 1. Developing left basilar pneumonia. 2. Little significant change in moderate to marked small and large bowel dilatation since 2018. The amount of solid stool has decreased. There does remain a large amount of predominantly liquid stool within the sigmoid colon and rectum. Clinical correlation and continued follow-up recommended. Please see above discussion. adding blood cultures. adding vanc/zosyn to cover for HCAP. Pt could have aspirated from emesis episode post enema. will benefit from admission to hospital for pna. pending ekg and cxr, urines. prevoius urine culture contaminated and was a dirty sample. no white count in cbc adding blood cultures ekg: sinus tachycardia 124 bpm, pr 160, qtc 462. Vanc/Zosyn for pna. admitted to hospitalist *DC/Admit/Observation/Transfer Diagnosis at time of Disposition: Colon distention PNA (pneumonia) Qualifiers: Pneumonia type: due to unspecified organism Laterality: left Lung location: lower lobe of lung Qualified Code(s): J18.1 - Lobar pneumonia, unspecified organism Constipation Qualifiers: Constipation type: unspecified constipation type Qualified Code(s): K59.00 - Constipation, unspecified - Discharge Dispostion Condition at time of disposition: Good Decision to Admit order: Yes - Referrals - Patient Instructions - Post Discharge Activity
--- NOTE | 2019-05-11 14:45 | PDOC ---
Attending Attestation - Resident Resident Name: AppleCarlota - ED Attending Attestation I have performed the following: I have examined & evaluated the patient, The case was reviewed & discussed with the resident, I agree w/resident's findings & plan, Exceptions are as noted - HPI HPI: 05/11/19 14:41 28 M with h/o severe MR, seizure disorder, functional quadriplegia, constipation , and Levan syndrome, presenting to ED with abdominal distention and vomiting. Pt last had a BM yesterday when he was given an enema. However, pt subsequently vomited. Today, pt continued to be distended with constipation. Pt is unable to contribute any history himself. - Physicial Exam PE: 05/11/19 14:43 "GENERAL: Awake, in no acute distress. HEAD: No signs of trauma EYES: PERRLA, EOMI, sclera anicteric, conjunctiva clear ENT: Auricles normal inspection, hearing grossly normal, nares patent, oropharynx clear without exudates. Moist mucosa NECK: Nontender, no stepoffs, Normal ROM, supple, no lymphadenopathy, JVD, or masses LUNGS: Breath sounds equal, clear to auscultation bilaterally. No wheezes, and no crackles HEART: Regular rate and rhythm, normal S1 and S2, no murmurs, rubs or gallops ABDOMEN: + distention, no tenderness, + tympanitic EXTREMITIES: Normal range of motion, no edema. No clubbing or cyanosis. No cords, erythema, or tenderness NEUROLOGICAL: Cranial nerves II through XII intact SKIN: Warm, Dry, normal turgor, no rashes or lesions noted. - Medical Decision Making 05/11/19 14:44 28 M with abdominal distention and vomiting. Has had multiple similar episodes in the past. 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 - labs - CTAP
[2019-05-11 15:52] LABS: BASO % 0.1 % (0-2.0); EOS % 0.1 % (0-4.5); HEMOGLOBIN 15.4 GM/dL (11.7-16.9); LYMPH % 3.8 % (8-40); MCH 27.3 pg (25.7-33.7); MCHC 32.7 g/dl (32.0-35.9); MEAN CELL VOLUME 83.5 fl (80-96); MEAN PLT VOLUME 7.8 fl (7.5-11.1); MONO % 6.4 % (3.8-10.2); NEUT % 89.6 % (42.8-82.8); PLATELET COUNT 252 K/MM3 (134-434); RBC 5.63 M/mm3 (4.00-5.60); RDW 14.7 % (11.9-15.9); WHITE BLOOD COUNT 3.8 K/mm3 (4.0-10.0)
[2019-05-11] MEDS ORDERED: PIPERACILLIN/TAZOB 3.375 GM 3.375 GM in DEXTROSE 5%-WATER - 50 ML IVPB ONE (16:52)
[2019-05-11] MEDS ORDERED: VANCOMYCIN 1 GM in D5W (PRE-DOCKED) 1,000 MG/250 ML IVPB ONE (16:52)
[2019-05-11 17:21] LABS: ALBUMIN 3.6 g/dl (3.4-5.0); BILIRUBIN,TOTAL 0.6 mg/dL (0.2-1); BLOOD UREA NITROGEN 29.9 mg/dL (7-18); CALCIUM 8.4 mg/dL (8.5-10.1); CREATININE 1.5 mg/dL (0.55-1.3); POTASSIUM 3.2 mmol/L (3.5-5.1); TOT PROT 7.2 g/dl (6.4-8.2)
[2019-05-11] MEDS ORDERED: VANCOMYCIN 1 GRAM (PRE-DOCKED) 1,000 MG/250 ML BAG IVPB ONE (18:09)
[2019-05-11] MEDS ORDERED: PIPERACILLIN/TAZOB 3.375 GM 3.375 GM/50 ML BAG IVPB ONE (18:09)
[2019-05-11 18:13] LABS: EPI CELLS 1.6 /HPF (0-5/HPF); HYALINE CASTS 33 /lpf (0-8); PH,URINE 6.5 (5.0-8.0); URINE APPEARANCE CLOUDY; URINE BACTERIA 2.9 /hpf (NEGATIVE); URINE BILIRUBIN NEGATIVE (NEGATIVE); URINE COLOR YELLOW; URINE GLUCOSE (UA) NEGATIVE (NEGATIVE); URINE KETONE TRACE (NEGATIVE); URINE LEUK ESTERASE NEGATIVE (NEGATIVE); URINE NITRITE NEGATIVE (NEGATIVE); URINE PROTEIN NEGATIVE (NEGATIVE); URINE RBC 60 /hpf (0-4); URINE UROBILINOGEN 0.2 mg/dL (0.2-1.0); URINE WBC 1 /hpf (0-5)
[2019-05-11] MEDS ORDERED: KCL 10 MEQ IVPB 10 MEQ/100 ML INFUS.BAG IVPB ONE ×2 (19:26→22:41)
[2019-05-11] MEDS: KCL 10 MEQ IVPB 10 MEQ/100 ML INFUS.BAG IVPB SCH ×2 (20:00→23:38)
--- NOTE | 2019-05-11 20:12 | HP ---
CHIEF COMPLAINT: PCP: Dr. Mortensen HISTORY OF PRESENT ILLNESS: 28 y/o/m from [facility] with PMHx of severe MR, seizure disorder, functional quadriplegia, Huan syndrome, and constipation here for abdominal distention and vomiting. Patient was recently admitted to the hospital for similar symptoms and discharged on 05/05. Patient is nonverbal and aide at bedside is unaware of history as she has only been with the patient as of 1400 today. As per retirement notes patient was given a soapsud enema yesterday and had a large BM but then proceeded to vomit. BM was brown in color. Patient's abdomen has been distended at retirement since yesterday. He has not had a BM since yesterday and has had no further vomiting episodes. ER course was notable for: (1) CT Abd&pelvis - developing left basilar pneumonia. little significant change in moderate to marked small bowel dilatation since 05/05/19. the amount of solid stool has decreased. There does remain a large amount of predominantly liquid stool within the sigmoid colon and rectum. (2) Started on vanc/zosyn for pneumonia PAST MEDICAL HISTORY: severe MR, seizure disorder, functional quadriplegia, Huan syndrome, constipation PAST SURGICAL HISTORY: CRAFT RECRUITER shunt placement and revision R ORIF Tendon release R. Femoral Osteotomy Social History: Smoking: unknown Alcohol: unknown Drugs: unknown Allergies latex Allergy (Verified 05/11/19 11:17) HOME MEDICATIONS: Home Medications Medication Instructions Recorded Acetaminophen [Tylenol] 650 mg PO Q4H PRN 02/09/19 Diazepam 1 mg PO TID 02/09/19 FA/Mv,Ca,Iron,Min/Lycopene/Lut 1 each PO DAILY 02/09/19 [Centravites Tablet] Lamotrigine [LaMICtal -] 125 mg PO BID 02/09/19 Loratadine [Claritin -] 10 mg PO HS 02/09/19 Magnesium Hydrox 2400MG/30Ml [Milk 35 ml PO BID 02/09/19 of Magnesia -] Tizanidine HCl [Zanaflex (Nf) -] 4 mg PO BID 02/09/19 Bisacodyl Suppository [Dulcolax [address] PRN PRN 05/05/19 Suppository -] Cholecalciferol (Vitamin D3) 400 iu PO BID 05/05/19 [Vitamin D3] Fluticasone Prop 0.05% Nasal 1 - 2 spray NS DAILY 05/05/19 [Flonase -] Simethicone 80 mg PO PRN 05/05/19 Sennosides [Senna] 2 tab PO HS 30 Days #60 tablet 05/06/19 Clobazam [Onfi -] 10 mg PO BID 05/11/19 REVIEW OF SYSTEMS Unable to obtain as patient is nonverbal and aide at bedside is unaware of history of patient GASTROINTESTINAL: abdominal distension, vomiting PHYSICAL EXAMINATION Vital Signs - 24 hr 05/11/19 05/11/19 11:16 19:35 Temperature 98.6 F 99 F Pulse Rate 92 H Pulse Rate [ 116 H Left Radial] Respiratory 19 20 Rate Blood Pressure 129/102 H Blood Pressure 102/80 [Right Arm] O2 Sat by Pulse 96 95 Oximetry (%) GENERAL: Awake, alert, nonverbal HEAD: Normal with no signs of trauma. EYES: Pupils equal, round and reactive to light, EOMI, sclera anicteric, conjunctiva clear. EARS, NOSE, THROAT: Dry mucous membranes NECK: no cervical lymphadenopathy LUNGS: Breath sounds equal, clear to auscultation bilaterally. No wheezes, and no crackles. No accessory muscle use. HEART: Tachycardic, normal S1 and S2 without murmur, rub or gallop. ABDOMEN: normoactive bowel sounds, firm, tensely distended RECTAL: no alisia blood seen, no hemorrhoids or fissures noted. liquid stool noted on gloved hand. no stool felt in rectum. normal rectal tone. MUSCULOSKELETAL: contracted upper and lower extremites UPPER EXTREMITIES: 2+ pulses, warm, well-perfused. No peripheral edema. LOWER EXTREMITIES: No peripheral edema. NEUROLOGICAL: nonverbal, severe MR SKIN: Warm, dry, normal turgor, no rashes noted, normal cap refill Laboratory Results - last 24 hr 05/11/19 05/11/19 05/11/19 14:30 14:30 14:30 WBC Cancelled Corrected WBC (auto) Cancelled RBC Cancelled Hgb Cancelled Hct Cancelled MCV Cancelled MCH Cancelled MCHC Cancelled RDW Cancelled Plt Count Cancelled MPV Cancelled Absolute Neuts (auto) Cancelled Neutrophils % Cancelled Lymphocytes % Cancelled Monocytes % Cancelled Eosinophils % Cancelled Basophils % Cancelled Nucleated RBC % Cancelled Platelet Estimate Cancelled Platelet Comment Cancelled Sodium Cancelled Potassium Cancelled Chloride Cancelled Carbon Dioxide Cancelled Anion Gap Cancelled BUN Cancelled Creatinine Cancelled Est GFR (CKD-EPI)AfAm Cancelled Est GFR (CKD-EPI)NonAf Cancelled Random Glucose Cancelled Lactic Acid 2.1 H Calcium Cancelled Total Bilirubin Cancelled AST Cancelled ALT Cancelled Alkaline Phosphatase Cancelled Total Protein Cancelled Albumin Cancelled Lipase Cancelled Urine Color Urine Appearance Urine pH Ur Specific [place] Urine Protein Urine Glucose (UA) Urine Ketones Urine Blood Urine Nitrite Urine Bilirubin Urine Urobilinogen Ur Leukocyte Esterase Urine WBC (Auto) Urine RBC (Auto) Urine Casts (Auto) U Pathogenic Cast Auto U Epithel Cells (Auto) Urine Bacteria (Auto) Stool Occult Blood 05/11/19 05/11/19 05/11/19 15:40 16:42 17:45 WBC 3.8 L Corrected WBC (auto) RBC 5.63 H Hgb 15.4 Hct 47.0 MCV 83.5 MCH 27.3 MCHC 32.7 RDW 14.7 Plt Count 252 MPV 7.8 Absolute Neuts (auto) 3.4 Neutrophils % 89.6 H D Lymphocytes % 3.8 L D Monocytes % 6.4 Eosinophils % 0.1 D Basophils % 0.1 Nucleated RBC % 0 Platelet Estimate Platelet Comment Sodium 137 Potassium 3.2 L Chloride 99 Carbon Dioxide 23 Anion Gap 15 BUN 29.9 H Creatinine 1.5 H Est GFR (CKD-EPI)AfAm 71.38 Est GFR (CKD-EPI)NonAf 61.59 Random Glucose 182 H Lactic Acid Calcium 8.4 L Total Bilirubin 0.6 AST 12 L ALT 24 Alkaline Phosphatase 69 Total Protein 7.2 Albumin 3.6 Lipase 36 L Urine Color Yellow Urine Appearance Cloudy Urine pH 6.5 D Ur Specific [place] 1.022 Urine Protein Negative Urine Glucose (UA) Negative Urine Ketones Trace H Urine Blood 2+ H Urine Nitrite Negative Urine Bilirubin Negative Urine Urobilinogen 0.2 Ur Leukocyte Esterase Negative Urine WBC (Auto) 1 Urine RBC (Auto) 60 Urine Casts (Auto) 33 U Pathogenic Cast Auto None seen U Epithel Cells (Auto) 1.6 Urine Bacteria (Auto) 2.9 Stool Occult Blood 05/11/19 19:42 WBC Corrected WBC (auto) RBC Hgb Hct MCV MCH MCHC RDW Plt Count MPV Absolute Neuts (auto) Neutrophils % Lymphocytes % Monocytes % Eosinophils % Basophils % Nucleated RBC % Platelet Estimate Platelet Comment Sodium Potassium Chloride Carbon Dioxide Anion Gap BUN Creatinine Est GFR (CKD-EPI)AfAm Est GFR (CKD-EPI)NonAf Random Glucose Lactic Acid Calcium Total Bilirubin AST ALT Alkaline Phosphatase Total Protein Albumin Lipase Urine Color Urine Appearance Urine pH Ur Specific [place] Urine Protein Urine Glucose (UA) Urine Ketones Urine Blood Urine Nitrite Urine Bilirubin Urine Urobilinogen Ur Leukocyte Esterase Urine WBC (Auto) Urine RBC (Auto) Urine Casts (Auto) U Pathogenic Cast Auto U Epithel Cells (Auto) Urine Bacteria (Auto) Stool Occult Blood Positive ASSESSMENT/PLAN: Patient is a 28 y/o/m from [facility] with PMHx of severe MR, seizure disorder, functional quadriplegia, Huan syndrome, and constipation here for abdominal distention and vomiting. 1) Sepsis -Pneumonia - likely secondary to aspiration of vomit -CT Abd&pelvis - developing left basilar infiltrate -Patient started on vanc/zosyn in the ED -Started on Zosyn 3.375 IV q8 -CT chest, CXR ordered for further evaluation -Speech/Swallow eval for aspiration risk -Follow Urine legionella antigen, Blood culture 2) AUSTYN - creatinine elevated at 1.5, last known creatinine was 0.7 on 05/06 -Given bolus of NS in ED -Started on NS 1000 mls at 100mls/hr -Monitor BUN/Creatinine 3) Ileus - CT Abd&pelvis - little significant change in moderate to marked small bowel dilatation since 05/05/19. the amount of solid stool has decreased. There does remain a large amount of predominantly liquid stool within the sigmoid colon and rectum -NPO -Would like to continue Senna but as patient is NPO will rehydrate and monitor BUN/Creatinine. Will reassess after speech/swallow eval -Stool occult positive for blood. HGB/HCT at 15.4/47 4) Hypokalemia -IV KCl 10meq x3 given in ED -Will monitor with labs 5) Lactic Acid elevation -Fluids started -Repeat Lactic 1.8. Resolved after fluids. 6) Seizure disorder -Patient on Lamictal at retirement -Switched to Keppra 500mg IV BID as patient is NPO 7) FEN -NS 1000mls @100mls/hr -routine BMP monitoring 8) Prophylaxis - Heparin 5000mg TID 9) Disposition -full code -admitted to med/surg Visit type - Emergency Visit Emergency Visit: Yes ED Registration Date: 05/11/19 Care time: The patient presented to the Emergency Department on the above date and was hospitalized for further evaluation of their emergent condition. - New Patient This patient is new to me today: Yes Date on this admission: 05/12/19 - Critical Care Critical Care patient: No ATTENDING PHYSICIAN STATEMENT I saw and evaluated the patient. I reviewed the resident's note and discussed the case with the resident. I agree with the resident's findings and plan as documented. SUBJECTIVE: OBJECTIVE: ASSESSMENT AND PLAN:
[2019-05-11] MEDS: SODIUM CHLORIDE 1,000 ML IV SCH (21:24)
--- NOTE | 2019-05-11 22:36 | PN ---
Teaching Attending Note Name of Resident: William Morocho ATTENDING PHYSICIAN STATEMENT I saw and evaluated the patient. I reviewed the resident's note and discussed the case with the resident. I agree with the resident's findings and plan as documented. History obtained from EMR as patient is unable to provide history due to MR. SUBJECTIVE: 28 yo M from [facility] with PMHx of severe MR, seizure disorder , functional quadriplegia, Huan syndrome, brought in for abdominal distention , which is chronic. Last night he received enema, had episode of diarrhea, then nonbloody vomiting. CT of abd/pelvis was performed in ER which showed distended bowels, left lower lung lobe infiltrates. He is afebrile, tachycardic , not in resp distress. OBJECTIVE: Last Vital Signs Temp Pulse Resp BP Pulse Ox 99 F 116 H 20 102/80 95 05/11/19 19:35 05/11/19 19:35 05/11/19 19:35 05/11/19 19:35 05/11/19 19:35 gen - severe MR, developmental delay, does not appear to be in resp distress heent- atrauamtic cv s1+s2 tachycardia chest -b/l breath sound entry abdomen -distended, bs decreased in 4 quadrants ext - no pedal edema appreciated Abnormal Lab Results 05/11/19 05/11/19 05/11/19 14:30 15:40 16:42 WBC 3.8 L RBC 5.63 H Neutrophils % 89.6 H D Lymphocytes % 3.8 L D Potassium 3.2 L BUN 29.9 H Creatinine 1.5 H Random Glucose 182 H Lactic Acid 2.1 H Calcium 8.4 L AST 12 L Lipase 36 L Urine Ketones Urine Blood 05/11/19 17:45 WBC RBC Neutrophils % Lymphocytes % Potassium BUN Creatinine Random Glucose Lactic Acid Calcium AST Lipase Urine Ketones Trace H Urine Blood 2+ H imaging reviewed ASSESSMENT AND PLAN: #Sepsis secondary to aspiration pneumonia, leukopenia, neutrophil predominance, tachycardia, tachypnea, slight lactic acidosis. Visible left lower lobe infiltrates on abd/pelvis CT. I am concerned for patient's ability to take PO at this time. He would likely benefit from speech and swallow evaluation. May need PEG/ G tube placement. -med/surg -npo -abg -supplemental oxygen via nasal cannula -chest ct without contrast -zosyn IV -blood cultures x2 -aspiration precautions -elevated head of bed -speech and swallow consult #Huan syndrome- severe distended bowels on CT abdomen- chronic. Patient was evaluated by surgery on past admission and they recommended senna to be administered and to avoid enema. -trial of senna -iv fluid fluid hydration -correct electrolyte abnormalities - hypokalemia, check mg, phos -would likely not tolerate NG tube, would pull -consider surgery f/u if worsening distention -#sandra -secondary to sepsis vs prerenal -if fluid hydration -avoid nephrotoxins #dvt ppx
[2019-05-11] MEDS ORDERED: HEPARIN NA (PORCINE) 5,000 UNITS/ML 1ML VIAL ONE (22:41)
[2019-05-11] MEDS ORDERED: levETIRAcetam 500 MG/5 ML INJECTION VIAL IVPB ONE (22:41)
[2019-05-11] MEDS: levETIRAcetam 500 MG/5 ML INJECTION VIAL IVPB SCH (23:15)
[2019-05-11] MEDS: HEPARIN NA (PORCINE) 5,000 UNITS/ML 1ML VIAL SQ SCH (23:17)
[2019-05-12] MEDS ORDERED: KCL 10 MEQ IVPB 10 MEQ/100 ML INFUS.BAG IVPB ONE (02:09)
[2019-05-12] MEDS ORDERED: PIPERACILLIN/TAZOB 3.375 GM 3.375 GM/50 ML BAG IVPB ONE ×3 (02:09→18:09)
[2019-05-12] MEDS: PIPERACILLIN/TAZOB 3.375 GM 3.375 GM in DEXTROSE 5%-WATER - 50 ML IVPB SCH ×3 (02:20→18:22)
[2019-05-12] MEDS: KCL 10 MEQ IVPB 10 MEQ/100 ML INFUS.BAG IVPB SCH (02:20)
[2019-05-12] MEDS ORDERED: FAMOTIDINE 20 MG/50 ML IVPB 20 MG/50 ML MG IVPB ONE ×2 (05:56→06:27)
[2019-05-12] MEDS ORDERED: HEPARIN NA (PORCINE) 5,000 UNITS/ML 1ML VIAL ONE ×2 (06:27→14:45)
[2019-05-12] MEDS: HEPARIN NA (PORCINE) 5,000 UNITS/ML 1ML VIAL SQ SCH ×2 (06:46→15:00)
[2019-05-12] MEDS ORDERED: PANTOPRAZOLE SODIUM 40 MG VIAL IVPUSH SCH (10:00)
[2019-05-12] MEDS ORDERED: levETIRAcetam 500 MG/5 ML INJECTION VIAL IVPB ONE (10:56)
[2019-05-12] MEDS: levETIRAcetam 500 MG/5 ML INJECTION VIAL IVPB SCH ×2 (11:00→22:24)
--- NOTE | 2019-05-12 11:00 | EKG ---
Test Reason : Blood Pressure : / mmHG Vent. Rate : 124 BPM Atrial Rate : 124 BPM P-R Int : 160 ms QRS Dur : 082 ms QT Int : 322 ms P-R-T Axes : 042 002 259 degrees QTc Int : 462 ms SINUS TACHYCARDIA VOLTAGE CRITERIA FOR LEFT VENTRICULAR HYPERTROPHY CANNOT RULE OUT INFERIOR INFARCT , AGE UNDETERMINED ABNORMAL ECG WHEN COMPARED WITH ECG OF 05-MAY-2019 06:50, MINIMAL CRITERIA FOR INFERIOR INFARCT ARE NOW PRESENT T WAVE INVERSION LESS EVIDENT IN INFERIOR LEADS T WAVE INVERSION NOW EVIDENT IN ANTERIOR LEADS Confirmed by Shane Leo ([id number]) on 05/12/2019 10:59:55 AM Referred By: Confirmed By:Shane Leo
[2019-05-12] MEDS ORDERED: ACETAMINOPHEN 1000 MG/100 ML VIAL (NON FORMULARY) IVPB ONE (11:58)
[2019-05-12] MEDS ORDERED: ACETAMINOPHEN INJECTION 100 ML IVPB ONE (12:00)
[2019-05-12] MEDS ORDERED: SODIUM CHLORIDE 0.9% 500 ML INFUS.BAG IV ONE (12:36)
[2019-05-12 13:25] LABS: ALBUMIN 2.9 g/dl (3.4-5.0); BILIRUBIN,TOTAL 0.9 mg/dL (0.2-1); BLOOD UREA NITROGEN 20.8 mg/dL (7-18); CALCIUM 7.7 mg/dL (8.5-10.1); CREATININE 0.8 mg/dL (0.55-1.3); MAGNESIUM 3.5 mg/dL (1.8-2.4); PHOSPHOROUS 1.9 mg/dL (2.5-4.9); POTASSIUM 3.6 mmol/L (3.5-5.1)
[2019-05-12 13:58] LABS: HEMATOCRIT 43.2 % (35.4-49); HEMOGLOBIN 14.2 GM/dL (11.7-16.9); MCH 27.6 pg (25.7-33.7); MCHC 32.8 g/dl (32.0-35.9); MEAN CELL VOLUME 84.1 fl (80-96); MEAN PLT VOLUME 8.2 fl (7.5-11.1); PLATELET COUNT 201 K/MM3 (134-434); RBC 5.14 M/mm3 (4.00-5.60); RDW 14.6 % (11.9-15.9)
--- NOTE | 2019-05-12 14:04 | PN ---
Progress Note (short form) - Note Progress Note: ID consult dictated imp/reccd 28 yo man from [facility] with profound MR and congenital quadraplegia, vp cardiovascular shunt, tamica's syndrome admitted with abdominal distention, he vomited at the HI chest ct with LLL infiltrate, GERARD infiltrate, RLL infiltrate ct abd/pelvis with marked bowel distention recent admission 05/04 to 05/06 for abdominal distention discharged on bactrim suspect multilobar aspiration pneumonia agree with cultures recieved vanco/zosyn in ed continue zosyn check urinary antigens as well- legionella/pneumococal 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 DECK CADET shunt epilepsy benign cyclic neutropenia Problem List - Problems (1) [place]'s syndrome Code(s): K59.8 - OTHER SPECIFIED FUNCTIONAL INTESTINAL DISORDERS (2) PNA (pneumonia) Code(s): J18.9 - PNEUMONIA, UNSPECIFIED ORGANISM Qualifiers: Pneumonia type: due to unspecified organism Laterality: left Lung location: lower lobe of lung Qualified Code(s): J18.1 - Lobar pneumonia, unspecified organism (3) Congenital quadriplegia Code(s): G80.8 - OTHER CEREBRAL PALSY (4) Profound mental handicap Code(s): F73 - PROFOUND INTELLECTUAL DISABILITIES (5) S/P ventriculoperitoneal shunt Code(s): Z98.2 - PRESENCE OF CEREBROSPINAL FLUID DRAINAGE DEVICE (6) Epilepsy without status epilepticus, not intractable Code(s): G40.909 - EPILEPSY, UNSP, NOT INTRACTABLE, WITHOUT STATUS EPILEPTICUS Qualifiers: Epilepsy type: unspecified Qualified Code(s): G40.909 - Epilepsy, unspecified, not intractable, without status epilepticus
--- NOTE | 2019-05-12 14:15 | CONSULT ---
Admitting History and Physical - Admission History of Present Illness: Per EMR/ ID consult noted- Patient is a 28 y/o/m from [facility] with PMHx of severe MR, seizure disorder, functional quadriplegia, Huan syndrome, and constipation here for abdominal distention and vomiting. 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, Other (profound MR, CP, spastic quadriplegia, h/o IVH with RESTAURANT AND BAR MANAGER shunt as , nonverbal (grunts, vocalizes only)) Gastrointestinal: Yes: Constipation Musculoskeletal: Yes: Other (functional quadriplegia, limb contractures, hammer toes) - Smoking History Smoking history: Never smoked Have you smoked in the past 12 months: No - Alcohol/Substance Use Hx Alcohol Use: No History of Substance Use: reports: None - Social History ADL: Support Services History - Admission Reason For Visit: COLON DISTENTION,PNEUMONIA,CONSTIPATION - Diagnostics X-ray: Report Reviewed CT Scan: Report Reviewed - General Mental Status: Unresponsive Attention: Profound Impairment Ability to Follow Directions: Poor Head/Neck Control: Needs Assist Speech Evaluation - Communication Primary Language: TAJIK Communication: Yes: Non-Communicable - Swallow Evaluation/Bedside Assessment Current Nutritional Intake: NPO Recommendations - Speech Evaluation, Impression/Plan Impression: Sepsis -Pneumonia - likely secondary to aspiration of vomit. Acute , seen in ED. Defer PO trials for now. - Recommendations Diet Consistency: NPO Liquids: NPO
[2019-05-12 14:49] LABS: WHITE BLOOD COUNT 0.8 K/mm3 (4.0-10.0)
--- NOTE | 2019-05-12 15:21 | CONS ---
DATE OF CONSULTATION: DATE OF DICTATION: 05/12/2019 This is a 28-year-old man. He is admitted from the [facility]. He has a history of profound mental retardation, congenital quadriparesis, has [place] syndrome, and was recently hospitalized from the to the for abdominal distention. He was discharged back to the assisted with a diagnosis of constipation and colonic pseudo-obstruction. He had a positive UA. He was given ceftriaxone in the hospital and switched to Bactrim on discharge. He now returns with recurrent abdominal distention, poor p.o. intake, and an episode of emesis. In the ER, he was noted to have a probable left lower lobe infiltrate. He had a CAT scan that confirmed left lower lobe, probable left upper lobe, and developing right lower lobe infiltrate. He was started on vancomycin and Zosyn. He had fever to 101.2 as well. Patient is unable to give any history. His past medical history is notable for history of profound mental retardation, congenital quadriplegia, epilepsy. He has benign cyclical neutropenia and [place] syndrome along with constipation. 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 He has had a right ORIF, a tendon release, and a right femoral osteotomy. SOCIAL HISTORY: He resides at the assisted. He is allergic to LATEX. His medications include Tylenol, diazepam, multivitamins, Lamictal, Claritin, milk of magnesia, tizanidine, Dulcolax, vitamin D, simethicone, senna, and clobazam. REVIEW OF SYSTEMS: The patient is unable to contribute. The history is per the chart, with the distention, poor oral intake, and episode of vomiting. PHYSICAL EXAMINATION: Vital Signs: His T-max is 101.2, pulse of 125, blood pressure 128/75, respiratory rate 20, he is saturating 94% on 2 L. HEENT: Normocephalic. His eyes are anicteric. General: He is resting comfortably. He does not appear to be in any distress. Lungs: Diminished breath sounds at the bases. Heart: Regular rate and rhythm. He is tachycardic. Abdomen: Distended but soft. Extremities: Without edema. White count is 3.8, hemoglobin is 15.4, these are labs from yesterday, and his platelets are 252. Today's labs are pending. Chemistries: BUN 20 and creatinine 0.8, yesterday they were BUN 29 and creatinine 1.5, with normal LFTs. His urinalysis is notable for negative leukocyte esterase and 1 white cell. Blood and urine cultures were sent and he was started on vancomycin and Zosyn. He had a CAT scan of his abdomen and pelvis done in the ER as well that showed marked bowel dilatation that is unchanged from his recent admission May 05. In summary, this is a developmentally disabled 28-year-old man admitted with: 1. Probable aspiration pneumonia. Would agree with cultures. He received vancomycin and Zosyn in the ED. Would continue the Zosyn, check urinary antigens as well for Legionella and pneumococcus. 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 3. Profound mental retardation with congenital quadriplegia. 4. Ventriculoperitoneal shunt. 5. Epilepsy. 6. Benign cyclical neutropenia. Would follow up his labs and cultures. Further recommendations to follow. RONAL DAVID M.D. [id number]
--- NOTE | 2019-05-12 19:58 | PN ---
Teaching Attending Note Name of Resident: [place] ATTENDING PHYSICIAN STATEMENT I saw and evaluated the patient. I reviewed the resident's note and discussed the case with the resident. I agree with the resident's findings and plan as documented. SUBJECTIVE: Non-verbal, unable to participate in medical interview. OBJECTIVE: Febrile, Tmax 101.2, Hemodynamically Stable. Lethargic, rousable. Non -verbal. Appears comfortable. Last Vital Signs Temp Pulse Resp BP Pulse Ox 97.3 F L 118 H 20 102/61 100 05/12/19 19:15 05/12/19 19:15 05/12/19 19:15 05/12/19 19:15 05/12/19 18:21 HEENT - Atraumatic Heart - S1, S2, tachy Lungs - good air entry bilaterally abdomen - distended, bowel sounds normal. Extremities - contractures, no edema. Laboratory Results - last 24 hr 05/11/19 05/11/19 05/12/19 12:50 19:42 03:24 WBC RBC Hgb Hct MCV MCH MCHC RDW Plt Count MPV Sodium Potassium Chloride Carbon Dioxide Anion Gap BUN Creatinine Est GFR (CKD-EPI)AfAm Est GFR (CKD-EPI)NonAf Random Glucose Lactic Acid 1.8 Calcium Phosphorus Cancelled Magnesium Cancelled Total Bilirubin AST ALT Alkaline Phosphatase Total Protein Albumin Stool Occult Blood Positive 05/12/19 05/12/19 12:50 12:50 WBC 0.8 L* RBC 5.14 Hgb 14.2 Hct 43.2 MCV 84.1 MCH 27.6 MCHC 32.8 RDW 14.6 Plt Count 201 D MPV 8.2 Sodium 138 Potassium 3.6 Chloride 106 Carbon Dioxide 22 Anion Gap 10 BUN 20.8 H Creatinine 0.8 Est GFR (CKD-EPI)AfAm 138.93 Est GFR (CKD-EPI)NonAf 119.87 Random Glucose 94 Lactic Acid Calcium 7.7 L Phosphorus 1.9 L Magnesium 3.5 H Total Bilirubin 0.9 AST 17 ALT 18 Alkaline Phosphatase 66 Total Protein 6.0 L Albumin 2.9 L Stool Occult Blood Current Medications Generic Name Dose Route Start Last Admin Trade Name Freq PRN Reason Stop Dose Admin Heparin Sodium (Porcine) 5,000 unit 05/11/19 22:00 05/12/19 15:00 Heparin - SQ 5,000 unit TID LINETTE Administration Sodium Chloride 1,000 mls @ 100 mls/hr 05/11/19 20:00 05/11/19 21:24 Normal Saline - IV 100 mls/hr ASDIR LINETTE Administration Piperacillin Sod/Tazobactam 50 mls @ 100 mls/hr 05/12/19 18:00 05/12/19 18:22 Sod 3.375 gm/ Dextrose IVPB 100 mls/hr Q8H-IV LINETTE Administration Protocol Levetiracetam 500 mg 05/11/19 22:00 05/12/19 11:00 Keppra Injection - IVPB 500 mg BID LINETTE Administration Senna 8.8 mg 05/12/19 23:42 Senna Oral Solution - PO 05/12/19 23:43 ONCE ONE Home Medications Medication Instructions Recorded Acetaminophen [Tylenol] 650 mg PO Q4H PRN 02/09/19 Diazepam 1 mg PO TID 02/09/19 FA/Mv,Ca,Iron,Min/Lycopene/Lut 1 each PO HS 02/09/19 [Centravites Tablet] Lamotrigine [LaMICtal -] 125 mg PO BID 02/09/19 Loratadine [Claritin -] 10 mg PO HS 02/09/19 Magnesium Hydrox 2400MG/30Ml [Milk 35 ml PO BID 02/09/19 of Magnesia -] Tizanidine HCl [Zanaflex (Nf) -] 4 mg PO BID 02/09/19 Bisacodyl Suppository [Dulcolax 10 mg AL PRN PRN 05/05/19 Suppository -] Cholecalciferol (Vitamin D3) 400 iu PO BID 05/05/19 [Vitamin D3] Fluticasone Prop 0.05% Nasal 1 - 2 spray NS DAILY 05/05/19 [Flonase -] Simethicone 80 mg PO PRN 05/05/19 Clobazam [Onfi -] 5 mg PO AM 05/11/19 Metoclopramide HCl [Reglan -] 10 mg PO QID 05/11/19 Sodium Phosphate,[place]-Dibasic 133 ml RC ASDIR PRN 05/11/19 [Fleet Enema] Topiramate 50 mg PO BID 05/11/19 Wheat Dextrin/Calcium Carb [Cvs 1 each PO DAILY 05/11/19 Easy Fiber Chewable Tablet] Bisacodyl 10 mg PO DAILY 05/12/19 Clobazam [Onfi -] 10 mg PO HS 05/12/19 Diazepam 1 mg PO TID 05/12/19 Diazepam [Diastat Acudial] 1 each RC PRN 05/12/19 Lactulose 30 ml PO HS 05/12/19 Lamotrigine [Lamotrigine ER] 125 mg PO BID 05/12/19 Nystatin Powder [Nystop Topical 30 gm TP ASDIR 05/12/19 Powder -] Olopatadine HCl 2.5 ml OU BID PRN 05/12/19 Sennosides [Senna] 3 tab PO HS 05/12/19 Sodium Chloride [[place] Saline] 2 sprays NS DAILY 05/12/19 Sodium Chloride [[place] Saline] 2 sprays NS PRN 05/12/19 ASSESSMENT/PLAN: 28 year old male resident at [facility] with PMHx of severe MR, seizure disorder, functional quadriplegia, Huan syndrome, 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 CT Chest/Abdomen/Pelvis - distended bowels, GERARD/LLL/RLL infiltrates. 1. Sepsis secondary to Multifocal Pneumonia, likely due to Aspiration Neutropenia possibly due to marrow suppression due to sepsis. Initial WBC 3.8, now 0.8 Neutropenic precautions. NPO/IV fluids IV Zosyn ID eval. Speech/Swallow eval. Blood Cx pending. 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 Recent admission for same. Seen by surgery who recommended Senna. Will resume once po intake resumes. 3. Hypophosphatemia - repleted. 4. AUSTYN sec to Sepsis - improved with IV hydratrion. 5. FOBT pos stool. no Melena/hematochezia. No Anemia. for GI follow up once acute illness has resolved. 6. Seizure Disorder - Continue Keppra IV. Normally on Diazepam, Lamotrigine, clobazam, topiramate. DVT Px - Heparin held due to FOBT pos stool. SCDs.
[2019-05-12] MEDS ORDERED: SODIUM CHLORIDE 1,000 ML IV STA (20:00)
[2019-05-12] MEDS ORDERED: POTASSIUM PHOSPHATE 30 MM in DEXTROSE 5%-WATER - 500 ML IVPB ONE (20:09)
--- NOTE | 2019-05-12 23:20 | PN ---
Physical Exam: SUBJECTIVE: Patient seen and examined. Patient is nonverbal, displaying soft grunts OBJECTIVE: Vital Signs Period Temp Pulse Resp BP Sys/Vigil Pulse Ox Last 24 Hr 97.3 F-101.2 F 110-125 18-22 95-128/56-75 94-100 GENERAL: nonverbal, NAD HEAD: Normal with no signs of trauma. No temporal wasting EYES: sclera anicteric, conjunctiva clear and w/o pallor ENT: Ears normal, nares patent, moist mucus membranes NECK: Trachea midline, full range of motion, supple. LUNGS: Breath sounds equal, CTABL, no wheezes, no crackles, no accessory muscle use. HEART: tachycardia, S1, S2 without murmur, rub or gallop. ABDOMEN: distended, tympanic to percussion, nonTTP [id number], no guarding or rebound EXTREMITIES: atrophied and thin NEUROLOGICAL: nonverbal, soft grunts SKIN: Warm, dry, normal turgor, no rashes or lesions noted Laboratory Results - last 24 hr 05/11/19 05/12/19 05/12/19 12:50 03:24 12:50 WBC 0.8 L* RBC 5.14 Hgb 14.2 Hct 43.2 MCV 84.1 MCH 27.6 MCHC 32.8 RDW 14.6 Plt Count 201 D MPV 8.2 Sodium Potassium Chloride Carbon Dioxide Anion Gap BUN Creatinine Est GFR (CKD-EPI)AfAm Est GFR (CKD-EPI)NonAf Random Glucose Lactic Acid 1.8 Calcium Phosphorus Cancelled Magnesium Cancelled Total Bilirubin AST ALT Alkaline Phosphatase Total Protein Albumin 05/12/19 05/12/19 12:50 20:00 WBC RBC Hgb Hct MCV MCH MCHC RDW Plt Count MPV Sodium 138 Potassium 3.6 Chloride 106 Carbon Dioxide 22 Anion Gap 10 BUN 20.8 H Creatinine 0.8 Est GFR (CKD-EPI)AfAm 138.93 Est GFR (CKD-EPI)NonAf 119.87 Random Glucose 94 Lactic Acid 2.2 H* Calcium 7.7 L Phosphorus 1.9 L Magnesium 3.5 H Total Bilirubin 0.9 AST 17 ALT 18 Alkaline Phosphatase 66 Total Protein 6.0 L Albumin 2.9 L Active Medications Generic Name Dose Route Start Last Admin Trade Name Freq PRN Reason Stop Dose Admin Sodium Chloride 1,000 mls @ 100 mls/hr 05/11/19 20:00 05/11/19 21:24 Normal Saline - IV 100 mls/hr ASDIR LINETTE Administration Piperacillin Sod/Tazobactam 50 mls @ 100 mls/hr 05/12/19 18:00 05/12/19 18:22 Sod 3.375 gm/ Dextrose IVPB 100 mls/hr Q8H-IV LINETTE Administration Protocol Potassium Phosphate 30 mm/ 510 mls @ 62.5 mls/hr 05/12/19 20:09 05/12/19 21: 51 Dextrose IVPB 05/13/19 04:18 62.5 mls/hr ONCE ONE Administration Levetiracetam 500 mg 05/11/19 22:00 05/12/19 22:24 Keppra Injection - IVPB 500 mg BID LINETTE Administration Senna 8.8 mg 05/12/19 23:42 Senna Oral Solution - PO 05/12/19 23:43 ONCE ONE Vital Signs Temp 98.2 F 05/12/19 21:20 Pulse 110 H 05/12/19 21:20 Resp 18 05/12/19 21:20 BP 103/56 L 05/12/19 21:20 Pulse Ox 100 05/12/19 18:21 Intake & Output 05/11/19 05/12/19 05/12/19 23:59 11:59 23:59 Other: Voiding Method Diaper Incontinent ASSESSMENT/PLAN: Patient is a 28 y/o/m from [facility] with PMHx of severe MR, seizure disorder, functional quadriplegia, Huan syndrome, and constipation here for abdominal distention and vomiting. 1) Sepsis -Pneumonia - likely secondary to aspiration of vomit >CT Abd&pelvis - developing left basilar infiltrate >CXR(05/12/19): LLL consolidation, possible early R basilar infiltrate >CT chest(05/12/19): airspace disease/PNA in LLL, lesser extent in GERARD, RLL; no pneumothorax; no pleural effusion -Patient started on vanc/zosyn in the ED -Zosyn, vancomycin -CT chest, CXR ordered for further evaluation -WBC ~0.8; neutropenia precautions -Speech/Swallow eval for aspiration risk -- recommend deferment of PO trial, NPO for now -appreciate ID recs: --suspect multilobar aspiration pneumonia --agree with cultures --recieved vanco/zosyn in ed --continue zosyn --check urinary antigens as well- legionella/pneumococal 2) AUSTYN -- resolving >Cr ~1.5 --> 0.8 after NS 4L -cw NS 1000 mls at 100mls/hr -Monitor BUN/Creatinine 3) Ileus - CT Abd&pelvis - little significant change in moderate to marked small bowel dilatation since 05/05/19. the amount of solid stool has decreased. There does remain a large amount of predominantly liquid stool within the sigmoid colon and rectum -NPO -restart senna once tolerating PO -Stool occult positive for blood. HGB/HCT at 15.4/47 4) Hypokalemia -IV KCl 10meq x3 given in ED -Will monitor with labs 5) Lactic Acid elevation -lactic acid 2.1-->1.8 --> 2.2 -IVF 6) Seizure disorder -Patient on Lamictal at [facility] -Switched to Keppra 500mg IV BID as patient is NPO 7) FEN -NS 1000mls @100mls/hr -routine BMP monitoring 8) Prophylaxis - Heparin 5000mg TID 9) Disposition -full code -admitted to med/surg Visit type - Emergency Visit Emergency Visit: No - New Patient This patient is new to me today: Yes Date on this admission: 05/11/19 - Critical Care Critical Care patient: No ATTENDING PHYSICIAN STATEMENT I saw and evaluated the patient. I reviewed the resident's note and discussed the case with the resident. I agree with the resident's findings and plan as documented. SUBJECTIVE: OBJECTIVE: ASSESSMENT AND PLAN:
[2019-05-12] MEDS ORDERED: SENNOSIDES 8.8 MG/5 ML BULK BOTTLE PO ONE (23:42)
[2019-05-13] MEDS ORDERED: PIPERACILLIN/TAZOBACTAM 3.375 GM VIAL IVPB ONE ×3 (01:01→17:01)
[2019-05-13] MEDS ORDERED: DEXTROSE 5%-WATER - 50 ML IVPB ONE ×3 (01:02→17:01)
[2019-05-13] MEDS: PIPERACILLIN/TAZOB 3.375 GM 3.375 GM in DEXTROSE 5%-WATER - 50 ML IVPB SCH ×3 (01:58→19:08)
[2019-05-13] MEDS ORDERED: SODIUM CHLORIDE 1,000 ML IV STA (09:52)
[2019-05-13 09:59] LABS: BASO % 0.1 % (0-2.0); EOS % 5.8 % (0-4.5); HEMOGLOBIN 13.1 GM/dL (11.7-16.9); MCH 27.8 pg (25.7-33.7); MCHC 32.8 g/dl (32.0-35.9); MEAN CELL VOLUME 84.8 fl (80-96); MEAN PLT VOLUME 8.1 fl (7.5-11.1); MONO % 2.6 % (3.8-10.2); NEUT % 84.5 % (42.8-82.8); PLATELET COUNT 202 K/MM3 (134-434); RBC 4.72 M/mm3 (4.00-5.60); WHITE BLOOD COUNT 5.1 K/mm3 (4.0-10.0)
[2019-05-13 10:29] LABS: ALBUMIN 2.7 g/dl (3.4-5.0); BILIRUBIN,TOTAL 0.7 mg/dL (0.2-1); CALCIUM 8.2 mg/dL (8.5-10.1); CREATININE 0.6 mg/dL (0.55-1.3); MAGNESIUM 2.9 mg/dL (1.8-2.4); PHOSPHOROUS 1.6 mg/dL (2.5-4.9); POTASSIUM 4.1 mmol/L (3.5-5.1); TOT PROT 5.7 g/dl (6.4-8.2)
[2019-05-13] MEDS: levETIRAcetam 500 MG/5 ML INJECTION VIAL IVPB SCH ×2 (11:09→21:40)
--- NOTE | 2019-05-13 12:24 | PN ---
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 She said he is nonverbal, eats reg food/thin liquids at [place], eg Burgers/fries without difficulty.Order states-1"pieces, thin liquid, No peanut butter and crackers,salad for lunch. He is fed. To reassess when more alert.
[2019-05-13] MEDS: SODIUM CHLORIDE 1,000 ML IV SCH ×2 (12:35→21:40)
[2019-05-13 13:23] LABS: ANISOCYTOSIS 0; HELMET CELLS 0; HOWELL-JOLLY BODIES 0; MACROCYTOSIS 0; OVALOCYTE 0; PLATELET ESTIMATE NORMAL; ROULEAU 0; SICKELED CELLS 0; TARGET CELLS 0; TEAR DROP CELLS 0; TOXIC GRANULATION 0
--- NOTE | 2019-05-13 14:56 | PN ---
Progress Note (short form) - Note Progress Note: NAD Vital Signs Period Temp Pulse Resp BP Sys/Vigil Pulse Ox Last 24 Hr 97.3 F-99.8 F 110-118 18-20 95-135/56-66 96-100 cor-rrr lungs decreaed bs t bses abd softer, nt ext no edema CBC, BMP 05/13/19 09:15 05/13/19 09:15 Microbiology 05/11/19 17:45 Urine - Urine Clean Catch Urine Culture - Final NO GROWTH OBTAINED 05/11/19 18:00 Blood - Peripheral Venous Blood Culture - Preliminary NO GROWTH OBTAINED AFTER 24 HOURS, INCUBATION TO CONTINUE FOR 4 DAYS. 05/11/19 18:10 Blood - Peripheral Venous Blood Culture - Preliminary NO GROWTH OBTAINED AFTER 24 HOURS, INCUBATION TO CONTINUE FOR 4 DAYS. Current Medications Sodium Chloride (Normal Saline -) 1,000 mls @ 100 mls/hr IV ASDIR LINETTE Last Admin: 05/13/19 12:35 Dose: Not Given Piperacillin Sod/Tazobactam (Sod 3.375 gm/ Dextrose) 50 mls @ 100 mls/hr IVPB Q8H-IV LINETTE; Protocol Last Admin: 05/13/19 11:09 Dose: 100 mls/hr Levetiracetam (Keppra Injection -) 500 mg IVPB BID LINETTE Last Admin: 05/13/19 11:09 Dose: 500 mg a/p multilobar aspiration pneumonia agree with cultures continue zosyn check urinary antigens as well- legionella/pneumococal 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 SECURITIES COMPLIANCE EXAMINER shunt epilepsy benign cyclic neutropenia Problem List - Problems (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 - OTHER SPECIFIED FUNCTIONAL INTESTINAL DISORDERS (2) PNA (pneumonia) Code(s): J18.9 - PNEUMONIA, UNSPECIFIED ORGANISM Qualifiers: Pneumonia type: due to unspecified organism Laterality: left Lung location: lower lobe of lung Qualified Code(s): J18.1 - Lobar pneumonia, unspecified organism (3) Congenital quadriplegia Code(s): G80.8 - OTHER CEREBRAL PALSY (4) Profound mental handicap Code(s): F73 - PROFOUND INTELLECTUAL DISABILITIES (5) S/P ventriculoperitoneal shunt Code(s): Z98.2 - PRESENCE OF CEREBROSPINAL FLUID DRAINAGE DEVICE (6) Epilepsy without status epilepticus, not intractable Code(s): G40.909 - EPILEPSY, UNSP, NOT INTRACTABLE, WITHOUT STATUS EPILEPTICUS Qualifiers: Epilepsy type: unspecified Qualified Code(s): G40.909 - Epilepsy, unspecified, not intractable, without status epilepticus
--- NOTE | 2019-05-13 16:27 | CON.GI ---
Consult Consult Specialty:: Gastroenterology Referred by:: Dr. Arroyo - History of Present Illness Chief Complaint: FOBT positive History of Present Illness: 28yo male h/o severe MR, seizure disorder, functional quadriplegia, Huan syndrome presents with abdominal distension and vomiting asked to evalute for fobt positive. Pt nonverbal, records reviewed. Pt with repeated admissions for abdominal distension and constipation, mostly recently 05/05/19. Pt now presents with abdominal distension and episode of vomiting, received enema in ED with subsequent large brown BM. No further vomiting noted. Stool found to be FOBT positive in ED therefore GI called. CT abd/pelvis revealing left side pneumonia, dilated small/large bowel with liquid stool in sigmoid and rectum. Less stool content than prior scan. Pt started on zosyn. 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, nonverbal (grunts, vocalizes only)) Gastrointestinal: Yes: Constipation Musculoskeletal: Yes: Other (functional quadriplegia, limb contractures, hammer toes) - Alcohol/Substance Use Hx Alcohol Use: No History of Substance Use: reports: None - Smoking History Smoking history: Never smoked Have you smoked in the past 12 months: No - Social History Usual Living Arrangement: Custodial ADL: Support Services Home Medications - Allergies Allergies/Adverse Reactions: Allergies Allergy/AdvReac Type Severity Reaction Status Date / Time latex Allergy Verified 05/12/19 18:42 - Home Medications Home Medications: Ambulatory Orders Acetaminophen [Tylenol] 650 mg PO Q4H PRN 02/09/19 Diazepam 1 mg PO TID 02/09/19 FA/Mv,Ca,Iron,Min/Lycopene/Lut [Centravites Tablet] 1 each PO HS 02/09/19 Lamotrigine [LaMICtal -] 125 mg PO BID 02/09/19 Loratadine [Claritin -] 10 mg PO HS 02/09/19 Magnesium Hydrox 2400MG/30Ml [Milk of Magnesia -] 35 ml PO BID 02/09/19 Tizanidine HCl [Zanaflex (Nf) -] 4 mg PO BID 02/09/19 Bisacodyl Suppository [Dulcolax Suppository -] 10 mg [place] PRN PRN 05/05/19 Cholecalciferol (Vitamin D3) [Vitamin D3] 400 iu PO BID 05/05/19 Fluticasone Prop 0.05% Nasal [Flonase -] 1 - 2 spray NS DAILY 05/05/19 Simethicone 80 mg PO PRN 05/05/19 Clobazam [Onfi -] 5 mg PO AM 05/11/19 Metoclopramide HCl [Reglan -] 10 mg PO QID 05/11/19 Sodium Phosphate,[place]-Dibasic [Fleet Enema] 133 ml RC ASDIR PRN 05/11/19 Topiramate 50 mg PO BID 05/11/19 Wheat Dextrin/Calcium Carb [Cvs Easy Fiber Chewable Tablet] 1 each PO DAILY Bisacodyl 10 mg PO DAILY 05/12/19 Clobazam [Onfi -] 10 mg PO HS 05/12/19 Diazepam 1 mg PO TID 05/12/19 Diazepam [Diastat Acudial] 1 each RC PRN 05/12/19 Lactulose 30 ml PO HS 05/12/19 Lamotrigine [Lamotrigine ER] 125 mg PO BID 05/12/19 Nystatin Powder [Nystop Topical Powder -] 30 gm TP ASDIR 05/12/19 Olopatadine HCl 2.5 ml OU BID PRN 05/12/19 Sennosides [Senna] 3 tab PO HS 05/12/19 Sodium Chloride [[place] Saline] 2 sprays NS DAILY 05/12/19 Sodium Chloride [[place] Saline] 2 sprays NS PRN 05/12/19 Review of Systems Unable to obtain ROS, reason: Pt nonverbal Physical Exam-GI Vital Signs: Vital Signs Temperature 98.8 F 05/13/19 13:33 Pulse Rate 128 H 05/13/19 13:33 Respiratory Rate 18 05/13/19 13:33 Blood Pressure 126/64 05/13/19 13:33 O2 Sat by Pulse Oximetry (%) 100 05/12/19 23:00 Constitutional: Yes: No Distress, Calm Cardiovascular: Yes: Tachycardia Respiratory: Yes: WNL, Regular, CTA Bilaterally ...Palpate: Yes: Other (Abd soft, does not appear distended, no tenderness elicited Rectal exam: light brown stool) Labs: CBC, BMP 05/13/19 09:15 05/13/19 09:15 Imaging - Results Cat Scan: Report Reviewed, Image Reviewed Problem List - Problems (1) Fecal occult blood test positive Assessment/Plan: 28yo male h/o severe MR, seizure disorder, functional quadriplegia, Huan syndrome presenting with abdominal distension and episode of vomiting currently being treated for pneumonia. Moving bowels after enema administered with positive FOBT. Etiology for positive FOBT in this setting unclear and possibly false positive in setting of microtrauma, rectal irritation following enemas or hemorrhoidal though cannot exclude other potential cause. No overt bleeding or evidence of anemia. -Recommend monitoring Hb and for evidence of bleeding -No urgency for endoscopy in absence of overt bleeding/anemia and as risks/ benefits need to be carefully weighed. Spoke with pts mother by phone who would like to avoid endoscopy either way at this time. -While positive fobt test on [facility]MA difficult to interpret at this time could consider submitting repeat stool samples x 3 -Resume diet as tolerated per LOGISTICS VICE PRESIDENT recommendations -Continue bowel regimen -Senna and miralax -Monitor and replete electrolytes -Frequent repositioning as tolerated -Further infectious workup and management per primary team/ID. Code(s): R19.5 - OTHER FECAL ABNORMALITIES
[2019-05-13] MEDS ORDERED: SODIUM PHOSPHATE - 0 MM in DEXTROSE 5%-WATER - 250 ML IVPB ONE (16:45)
--- NOTE | 2019-05-13 16:49 | PN ---
Physical Exam: SUBJECTIVE: O/N, had large loose brown BM. Patient seen and examined. Soft grunts, nonverbal. NC 2L OBJECTIVE: Vital Signs Period Temp Pulse Resp BP Sys/Vigil Pulse Ox Last 24 Hr 97.3 F-99.8 F 110-128 18-20 95-135/56-66 96-100 GENERAL: nonverbal, NAD HEAD: Normal with no signs of trauma. No temporal wasting EYES: sclera anicteric, conjunctiva clear and w/o pallor ENT: Ears normal, nares patent, moist mucus membranes NECK: Trachea midline, full range of motion, supple. LUNGS: Breath sounds equal, CTABL, no wheezes, no crackles, no accessory muscle use. HEART: tachycardia, S1, S2 without murmur, rub or gallop. ABDOMEN: distended, tympanic to percussion, nonTTP [id number], no guarding or rebound, BS present. Rectal tone normal. No firm stool noted. Thin brown stool on glove w/o alisia blood EXTREMITIES: atrophied and thin NEUROLOGICAL: nonverbal, soft grunts SKIN: Warm, dry, normal turgor, no rashes or lesions noted Laboratory Results - last 24 hr 05/12/19 05/13/19 05/13/19 20:00 00:02 09:15 WBC 5.1 RBC 4.72 Hgb 13.1 Hct 40.0 MCV 84.8 MCH 27.8 MCHC 32.8 RDW 15.0 Plt Count 202 MPV 8.1 Absolute Neuts (auto) 4.3 Neutrophils % 84.5 H Neutrophils % (Manual) 70.8 Band Neutrophils % 7.3 Lymphocytes % 7.0 L D Lymphocytes % (Manual) 9.4 Monocytes % 2.6 L Monocytes % (Manual) 2 L Eosinophils % 5.8 H D Eosinophils % (Manual) 6.3 H Basophils % 0.1 Basophils % (Manual) 0.0 Myelocytes % (Man) 0 Promyelocytes % (Man) 0 Blast Cells % (Manual) 0 Nucleated RBC % 0 Metamyelocytes 1 Hypochromia 0 Toxic Granulation 0 Dohle Bodies 0 Platelet Estimate Normal Polychromasia 0 Poikilocytosis 0 Basophilic Stippling 0 Anisocytosis 0 Microcytosis 0 Macrocytosis 0 Spherocytes 0 Sickle Cells 0 Target Cells 0 Tear Drop Cells 0 Ovalocytes 0 Stomatocytes 0 Helmet Cells 0 [place] Bodies 0 [place] Rings 0 Tran Cells 0 Acanthocytes (Spur) 0 Rouleaux 0 Fragmented RBCs 0 Schistocytes 0 Sodium Potassium Chloride Carbon Dioxide Anion Gap BUN Creatinine Est GFR (CKD-EPI)AfAm Est GFR (CKD-EPI)NonAf Random Glucose Lactic Acid 2.2 H* 1.7 Calcium Phosphorus Magnesium Total Bilirubin AST ALT Alkaline Phosphatase Total Protein Albumin 05/13/19 09:15 WBC RBC Hgb Hct MCV MCH MCHC RDW Plt Count MPV Absolute Neuts (auto) Neutrophils % Neutrophils % (Manual) Band Neutrophils % Lymphocytes % Lymphocytes % (Manual) Monocytes % Monocytes % (Manual) Eosinophils % Eosinophils % (Manual) Basophils % Basophils % (Manual) Myelocytes % (Man) Promyelocytes % (Man) Blast Cells % (Manual) Nucleated RBC % Metamyelocytes Hypochromia Toxic Granulation Dohle Bodies Platelet Estimate Polychromasia Poikilocytosis Basophilic Stippling Anisocytosis Microcytosis Macrocytosis Spherocytes Sickle Cells Target Cells Tear Drop Cells Ovalocytes Stomatocytes Helmet Cells [place] Bodies [place] Rings Tran Cells Acanthocytes (Spur) Rouleaux Fragmented RBCs Schistocytes Sodium 141 Potassium 4.1 Chloride 112 H Carbon Dioxide 22 Anion Gap 7 L BUN 10.0 Creatinine 0.6 Est GFR (CKD-EPI)AfAm 156.37 Est GFR (CKD-EPI)NonAf 134.92 Random Glucose 78 Lactic Acid Calcium 8.2 L Phosphorus 1.6 L Magnesium 2.9 H Total Bilirubin 0.7 AST 16 ALT 19 Alkaline Phosphatase 64 Total Protein 5.7 L Albumin 2.7 L Active Medications Generic Name Dose Route Start Last Admin Trade Name Freq PRN Reason Stop Dose Admin Sodium Chloride 1,000 mls @ 100 mls/hr 05/11/19 20:00 05/13/19 12:35 Normal Saline - IV Not Given ASDIR LINETTE Piperacillin Sod/Tazobactam 50 mls @ 100 mls/hr 05/12/19 18:00 05/13/19 11:09 Sod 3.375 gm/ Dextrose IVPB 100 mls/hr Q8H-IV LINETTE Administration Protocol Levetiracetam 500 mg 05/11/19 22:00 05/13/19 11:09 Keppra Injection - IVPB 500 mg BID LINETTE Administration Vital Signs Temp 98.8 F 05/13/19 13:33 Pulse 128 H 05/13/19 13:33 Resp 18 05/13/19 13:33 BP 126/64 05/13/19 13:33 Pulse Ox 100 05/12/19 23:00 Intake & Output 05/12/19 05/13/19 05/13/19 23:59 11:59 23:59 Intake Total 1050 650 Balance 1050 650 Weight 38.102 kg Intake: IV 1000 100 Normal Saline - 1,000 ml 100 @ 100 mls/hr IV ASDIR LINETTE Rx#:[id number] Normal Saline - 1,000 ml 1000 @ 1000 mls/hr IV ASDIR STA Rx#:[id number] IVPB 50 550 Oral 0 Other: Voiding Method Incontinent Incontinent # Unmeasured Voids Void 2 Bowel Movement Yes Yes # Bowel Movements 1 2 Height 4 ft 8 in Body Mass Index (BMI) 18.8 Weight Measurement Method Built in Bedscale Built in Bedscale ASSESSMENT/PLAN: Patient is a 28 y/o/m from [facility] with PMHx of severe MR, seizure disorder, functional quadriplegia, Huan syndrome, and constipation here for abdominal distention and vomiting. #Sepsis -Pneumonia - likely secondary to aspiration of vomit >CT Abd&pelvis - developing left basilar infiltrate >CXR(05/12/19): LLL consolidation, possible early R basilar infiltrate >CT chest(05/12/19): airspace disease/PNA in LLL, lesser extent in GERARD, RLL; no pneumothorax; no pleural effusion -Patient started on vanc/zosyn in the ED -Zosyn, vancomycin -CT chest, CXR ordered for further evaluation -WBC ~0.8; neutropenia precautions -Speech/Swallow eval for aspiration risk -- recommend deferment of PO trial, NPO for now -appreciate ID recs: --suspect multilobar aspiration pneumonia --agree with cultures --recieved vanco/zosyn in ed --continue zosyn --check urinary antigens as well- legionella/pneumococal #FOBT positive -GI consulted #AUSTYN -- resolving >Cr ~1.5 --> 0.8 after NS 4L -cw NS 1000 mls at 100mls/hr -Monitor BUN/Creatinine #Ileus - CT Abd&pelvis - little significant change in moderate to marked small bowel dilatation since 05/05/19. the amount of solid stool has decreased. There does remain a large amount of predominantly liquid stool within the sigmoid colon and rectum -NPO -restart senna once tolerating PO -Stool occult positive for blood. HGB/HCT at 15.4/47 -replete Mg, Phos, K as necessary #Hypokalemia -IV KCl 10meq x3 given in ED -Will monitor with labs #Lactic Acid elevation -lactic acid 2.1-->1.8 --> 2.2 -IVF #Seizure disorder -Patient on Lamictal at long-term -Switched to Keppra 500mg IV BID as patient is NPO #FEN -NS 1000mls @100mls/hr -routine BMP monitoring #Prophylaxis - Heparin 5000mg TID #Disposition -full code -admitted to med/surg Visit type - Emergency Visit Emergency Visit: No - New Patient This patient is new to me today: No - Critical Care Critical Care patient: No ATTENDING PHYSICIAN STATEMENT I saw and evaluated the patient. I reviewed the resident's note and discussed the case with the resident. I agree with the resident's findings and plan as documented. SUBJECTIVE: OBJECTIVE: ASSESSMENT AND PLAN:
[2019-05-13] MEDS ORDERED: SODIUM PHOSPHATE - 15 MM in DEXTROSE 5%-WATER - 250 ML IVPB ONE (18:18)
--- NOTE | 2019-05-13 19:24 | PN ---
Teaching Attending Note Name of Resident: Ander Cobos ATTENDING PHYSICIAN STATEMENT I saw and evaluated the patient. I reviewed the resident's note and discussed the case with the resident. I agree with the resident's findings and plan as documented. SUBJECTIVE: Non-verbal, unable to participate in medical interview. OBJECTIVE: Febrile, Tmax 101.2 yesterday, Hemodynamically Stable. Lethargic, rousable. Non-verbal. Appears comfortable. Last Vital Signs Temp Pulse Resp BP Pulse Ox 98.9 F 68 20 114/67 100 05/13/19 17:21 05/13/19 17:21 05/13/19 17:21 05/13/19 17:21 05/12/19 23:00 HEENT - Atraumatic Heart - S1, S2, SR Lungs - good air entry bilaterally abdomen - distended, soft, bowel sounds normal. Extremities - contractures, no edema. Laboratory Results - last 24 hr 05/12/19 05/13/19 05/13/19 20:00 00:02 09:15 WBC 5.1 RBC 4.72 Hgb 13.1 Hct 40.0 MCV 84.8 MCH 27.8 MCHC 32.8 RDW 15.0 Plt Count 202 MPV 8.1 Absolute Neuts (auto) 4.3 Neutrophils % 84.5 H Neutrophils % (Manual) 70.8 Band Neutrophils % 7.3 Lymphocytes % 7.0 L D Lymphocytes % (Manual) 9.4 Monocytes % 2.6 L Monocytes % (Manual) 2 L Eosinophils % 5.8 H D Eosinophils % (Manual) 6.3 H Basophils % 0.1 Basophils % (Manual) 0.0 Myelocytes % (Man) 0 Promyelocytes % (Man) 0 Blast Cells % (Manual) 0 Nucleated RBC % 0 Metamyelocytes 1 Hypochromia 0 Toxic Granulation 0 Dohle Bodies 0 Platelet Estimate Normal Polychromasia 0 Poikilocytosis 0 Basophilic Stippling 0 Anisocytosis 0 Microcytosis 0 Macrocytosis 0 Spherocytes 0 Sickle Cells 0 Target Cells 0 Tear Drop Cells 0 Ovalocytes 0 Stomatocytes 0 Helmet Cells 0 [place] Bodies 0 [place] Rings 0 [place] Cells 0 Acanthocytes (Spur) 0 Rouleaux 0 Fragmented RBCs 0 Schistocytes 0 Sodium Potassium Chloride Carbon Dioxide Anion Gap BUN Creatinine Est GFR (CKD-EPI)AfAm Est GFR (CKD-EPI)NonAf Random Glucose Lactic Acid 2.2 H* 1.7 Calcium Phosphorus Magnesium Total Bilirubin AST ALT Alkaline Phosphatase Total Protein Albumin 05/13/19 09:15 WBC RBC Hgb Hct MCV MCH MCHC RDW Plt Count MPV Absolute Neuts (auto) Neutrophils % Neutrophils % (Manual) Band Neutrophils % Lymphocytes % Lymphocytes % (Manual) Monocytes % Monocytes % (Manual) Eosinophils % Eosinophils % (Manual) Basophils % Basophils % (Manual) Myelocytes % (Man) Promyelocytes % (Man) Blast Cells % (Manual) Nucleated RBC % Metamyelocytes Hypochromia Toxic Granulation Dohle Bodies Platelet Estimate Polychromasia Poikilocytosis Basophilic Stippling Anisocytosis Microcytosis Macrocytosis Spherocytes Sickle Cells Target Cells Tear Drop Cells Ovalocytes Stomatocytes Helmet Cells [place] Bodies [place] Rings [place] Cells Acanthocytes (Spur) Rouleaux Fragmented RBCs Schistocytes Sodium 141 Potassium 4.1 Chloride 112 H Carbon Dioxide 22 Anion Gap 7 L BUN 10.0 Creatinine 0.6 Est GFR (CKD-EPI)AfAm 156.37 Est GFR (CKD-EPI)NonAf 134.92 Random Glucose 78 Lactic Acid Calcium 8.2 L Phosphorus 1.6 L Magnesium 2.9 H Total Bilirubin 0.7 AST 16 ALT 19 Alkaline Phosphatase 64 Total Protein 5.7 L Albumin 2.7 L Current Medications Generic Name Dose Route Start Last Admin Trade Name Freq PRN Reason Stop Dose Admin Sodium Chloride 1,000 mls @ 100 mls/hr 05/11/19 20:00 05/13/19 12:35 Normal Saline - IV Not Given ASDIR LINETTE Piperacillin Sod/Tazobactam 50 mls @ 100 mls/hr 05/12/19 18:00 05/13/19 19:08 Sod 3.375 gm/ Dextrose IVPB 100 mls/hr Q8H-IV LINETTE Administration Protocol Sodium Phosphate 15 mm/ 255 mls @ 62.5 mls/hr 05/13/19 18:18 Dextrose IVPB 05/13/19 20:49 ONCE ONE Levetiracetam 500 mg 05/11/19 22:00 05/13/19 11:09 Keppra Injection - IVPB 500 mg BID LINETTE Administration Home Medications Medication Instructions Recorded Acetaminophen [Tylenol] 650 mg PO Q4H PRN 02/09/19 Diazepam 1 mg PO TID 02/09/19 FA/Mv,Ca,Iron,Min/Lycopene/Lut 1 each PO HS 02/09/19 [Centravites Tablet] Lamotrigine [LaMICtal -] 125 mg PO BID 02/09/19 Loratadine [Claritin -] 10 mg PO HS 02/09/19 Magnesium Hydrox 2400MG/30Ml [Milk 35 ml PO BID 02/09/19 of Magnesia -] Tizanidine HCl [Zanaflex (Nf) -] 4 mg PO BID 02/09/19 Bisacodyl Suppository [Dulcolax 10 mg MT PRN PRN 05/05/19 Suppository -] Cholecalciferol (Vitamin D3) 400 iu PO BID 05/05/19 [Vitamin D3] Fluticasone Prop 0.05% Nasal 1 - 2 spray NS DAILY 05/05/19 [Flonase -] Simethicone 80 mg PO PRN 05/05/19 Clobazam [Onfi -] 5 mg PO AM 05/11/19 Metoclopramide HCl [Reglan -] 10 mg PO QID 05/11/19 Sodium Phosphate,[place]-Dibasic 133 ml RC ASDIR PRN 05/11/19 [Fleet Enema] Topiramate 50 mg PO BID 05/11/19 Wheat Dextrin/Calcium Carb [Cvs 1 each PO DAILY 05/11/19 Easy Fiber Chewable Tablet] Bisacodyl 10 mg PO DAILY 05/12/19 Clobazam [Onfi -] 10 mg PO HS 05/12/19 Diazepam 1 mg PO TID 05/12/19 Diazepam [Diastat Acudial] 1 each RC PRN 05/12/19 Lactulose 30 ml PO HS 05/12/19 Lamotrigine [Lamotrigine ER] 125 mg PO BID 05/12/19 Nystatin Powder [Nystop Topical 30 gm TP ASDIR 05/12/19 Powder -] Olopatadine HCl 2.5 ml OU BID PRN 05/12/19 Sennosides [Senna] 3 tab PO HS 05/12/19 Sodium Chloride [Mobile Saline] 2 sprays NS DAILY 05/12/19 Sodium Chloride [Mobile Saline] 2 sprays NS PRN 05/12/19 ASSESSMENT/PLAN: 28 year old male resident at [facility] with PMHx of severe MR, seizure disorder, functional quadriplegia, Huna syndrome, s/p SUPERINTENDENT QUARRY shunt, brought in for abdominal distention/vomiting, which is recurrent, found to have multifocal pneumonia, developed fever and neutropenia in ED. CT Chest/Abdomen/Pelvis - distended bowels, GERARD/LLL/RLL infiltrates. 1. Sepsis secondary to Multifocal Pneumonia, likely due to Aspiration Neutropenia possibly due to marrow suppression due to sepsis, resolved Blood Cx negative NPO/IV fluids IV Zosyn ID eval. Speech/Swallow eval. 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 Recent admission for same. Seen by surgery who recommended Senna. Will resume bowel regimen. 3. Hypophosphatemia, recurrent - repleted. 4. AUSTYN sec to Sepsis - improved with IV hydratrion. 5. FOBT pos stool. no Melena/hematochezia. No Anemia. GI evaluated - not for endoscopy at this time. 6. Seizure Disorder - Continue Keppra IV. Normally on Diazepam, Lamotrigine, clobazam, topiramate. DVT Px - Heparin held due to FOBT pos stool. SCDs.
[2019-05-13] MEDS ORDERED: PT OWN MED DRAWER 7, Y5N ONE (20:58)
[2019-05-13] MEDS: POLYETHYLENE GLYCOL 3350 119 GM BTL PO SCH (21:39)
[2019-05-14] MEDS ORDERED: DEXTROSE 5%-WATER - 50 ML IVPB ONE ×3 (01:09→17:28)
[2019-05-14] MEDS ORDERED: PIPERACILLIN/TAZOBACTAM 3.375 GM VIAL IVPB ONE ×3 (01:09→17:28)
[2019-05-14] MEDS: PIPERACILLIN/TAZOB 3.375 GM 3.375 GM in DEXTROSE 5%-WATER - 50 ML IVPB SCH ×3 (01:36→17:32)
[2019-05-14] MEDS ORDERED: PT OWN MED DRAWER 7, Y5N ONE ×3 (06:47→23:25)
[2019-05-14 07:03] LABS: BASO % 0.2 % (0-2.0); EOS % 2.3 % (0-4.5); HEMATOCRIT 34.7 % (35.4-49); HEMOGLOBIN 11.7 GM/dL (11.7-16.9); LYMPH % 7.6 % (8-40); MCH 28.1 pg (25.7-33.7); MCHC 33.8 g/dl (32.0-35.9); MEAN CELL VOLUME 83.2 fl (80-96); MEAN PLT VOLUME 7.7 fl (7.5-11.1); MONO % 5.7 % (3.8-10.2); NEUT % 84.2 % (42.8-82.8); PLATELET COUNT 211 K/MM3 (134-434); RBC 4.17 M/mm3 (4.00-5.60); RDW 14.6 % (11.9-15.9); WHITE BLOOD COUNT 5.4 K/mm3 (4.0-10.0)
[2019-05-14] MEDS ORDERED: SODIUM CHLORIDE 500 ML IV STA ×2 (07:18→12:57)
[2019-05-14 07:21] LABS: BLOOD UREA NITROGEN 7.5 mg/dL (7-18); CREATININE 0.5 mg/dL (0.55-1.3); MAGNESIUM 2.1 mg/dL (1.8-2.4); PHOSPHOROUS 2.5 mg/dL (2.5-4.9); POTASSIUM 3.4 mmol/L (3.5-5.1)
[2019-05-14] MEDS ORDERED: SODIUM CHLORIDE 0.9% 500 ML INFUS.BAG IV ONE (07:35)
[2019-05-14] MEDS ORDERED: KCL 10 MEQ IVPB 10 MEQ/100 ML INFUS.BAG IVPB SCH (09:00)
[2019-05-14] MEDS: levETIRAcetam 500 MG/5 ML INJECTION VIAL IVPB SCH (10:27)
[2019-05-14 10:34] LABS: ANISOCYTOSIS 0; MACROCYTOSIS 0; PLATELET ESTIMATE NORMAL
--- NOTE | 2019-05-14 11:00 | PN ---
Progress Note, [employer] - Note Progress Note: Selected Entries 05/13/19 05/13/19 05/13/19 05:20 09:00 13:33 Supper Temperature 97.5 F L 99.8 F H 98.8 F 05/13/19 05/13/19 05/14/19 17:21 18:30 03:39 Supper NPO Temperature 98.9 F 100.2 F H 05/14/19 06:00 Supper Temperature 100.2 F H Laboratory Tests 05/14/19 06:00 WBC 5.4 Pt noted to be hiccoughing when I arrived. His mother was at bedside and said this is new for him. GI cnsult appreciated. Assessed swallowing function. Pt drinks rapidly from a straw with no responsive cough but 2 instances of brief throat clearing. After drinking second cup of water, pt was visibly dyspneic. No cough noted. Pt is nonverbal. Per his mother, he eats well at [employer]. If he is uncomfortable he vocalizes. He was verbal until age 5 when he had a seizure and hasnt spoken since. REC: Continue NPO, Suggest MBS to r/o silent aspiration before initiating diet.
[2019-05-14] MEDS: KCL 10 MEQ IVPB 10 MEQ/100 ML INFUS.BAG IVPB SCH ×3 (11:49→22:06)
[2019-05-14] MEDS ORDERED: POTASSIUM PHOSPHATE 30 MM in DEXTROSE 5%-WATER - 500 ML IVPB ONE (12:33)
[2019-05-14] MEDS ORDERED: VANCOMYCIN 1 GM in D5W (PRE-DOCKED) 1,000 MG/250 ML IVPB SCH (13:00)
[2019-05-14] MEDS ORDERED: SODIUM CHLORIDE 1,000 ML IV SCH ×2 (13:00→18:27)
[2019-05-14] MEDS: METOCLOPRAMIDE HCL 10 MG TABLET (FP) PO SCH ×3 (14:11→23:28)
[2019-05-14] MEDS: diazePAM 2 MG TABLET PO SCH ×2 (14:11→23:31)
[2019-05-14] MEDS: POLYETHYLENE GLYCOL 3350 119 GM BTL PO SCH (14:50)
[2019-05-14] MEDS: VANCOMYCIN 1 GM in D5W (PRE-DOCKED) 1,000 MG/250 ML IVPB SCH ×2 (14:50→15:04)
--- NOTE | 2019-05-14 15:06 | PN ---
Progress Note (short form) - Note Progress Note: NAD hiccups Vital Signs Period Temp Pulse Resp BP Sys/Vigil Pulse Ox Last 24 Hr 98.9 F-100.9 F 68-116 18-30 91-138/57-77 cor-rrr lungs decreased bs at bases abd soft,nt ext no edema CBC, BMP 05/14/19 06:00 05/14/19 06:00 Microbiology 05/11/19 18:00 Blood - Peripheral Venous Blood Culture - Preliminary NO GROWTH OBTAINED AFTER 48 HOURS, INCUBATION TO CONTINUE FOR 3 DAYS. 05/11/19 18:10 Blood - Peripheral Venous Blood Culture - Preliminary NO GROWTH OBTAINED AFTER 48 HOURS, INCUBATION TO CONTINUE FOR 3 DAYS. 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 INSTRUMENTATION FITTER shunt epilepsy benign cyclic neutropenia d/w mother at bedside Problem List - Problems (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 - OTHER SPECIFIED FUNCTIONAL INTESTINAL DISORDERS (2) PNA (pneumonia) Code(s): J18.9 - PNEUMONIA, UNSPECIFIED ORGANISM Qualifiers: Pneumonia type: due to unspecified organism Laterality: left Lung location: lower lobe of lung Qualified Code(s): J18.1 - Lobar pneumonia, unspecified organism (3) Congenital quadriplegia Code(s): G80.8 - OTHER CEREBRAL PALSY (4) Profound mental handicap Code(s): F73 - PROFOUND INTELLECTUAL DISABILITIES (5) S/P ventriculoperitoneal shunt Code(s): Z98.2 - PRESENCE OF CEREBROSPINAL FLUID DRAINAGE DEVICE (6) Epilepsy without status epilepticus, not intractable Code(s): G40.909 - EPILEPSY, UNSP, NOT INTRACTABLE, WITHOUT STATUS EPILEPTICUS Qualifiers: Epilepsy type: unspecified Qualified Code(s): G40.909 - Epilepsy, unspecified, not intractable, without status epilepticus
[2019-05-14] MEDS: FLUTICASONE PROP 0.05% 16 GM NASAL SPRAY NS SCH (15:16)
[2019-05-14 16:25] LABS: URINE APPEARANCE CLEAR; URINE BILIRUBIN NEGATIVE (NEGATIVE); URINE COLOR YELLOW; URINE GLUCOSE (UA) NEGATIVE (NEGATIVE); URINE KETONE 1+ (NEGATIVE); URINE LEUK ESTERASE NEGATIVE (NEGATIVE); URINE NITRITE NEGATIVE (NEGATIVE); URINE PROTEIN NEGATIVE (NEGATIVE)
[2019-05-14] MEDS: VANCOMYCIN 750 MG in DEXTROSE 5%-WATER - 250 ML IVPB SCH (17:58)
--- NOTE | 2019-05-14 18:11 | PN ---
Teaching Attending Note Name of Resident: Ander Rodung ATTENDING PHYSICIAN STATEMENT I saw and evaluated the patient. I reviewed the resident's note and discussed the case with the resident. I agree with the resident's findings and plan as documented. SUBJECTIVE: Non-verbal, unable to participate in medical interview. OBJECTIVE: Febrile, Tmax 100.9 yesterday, Hemodynamically Stable. More awake. Non-verbal. Appears comfortable. Last Vital Signs Temp Pulse Resp BP Pulse Ox 100.6 F H 103 H 22 H 129/72 98 05/14/19 16:30 05/14/19 16:30 05/14/19 16:30 05/14/19 16:30 05/14/19 09:00 Heart - S1, S2, SR Lungs - good air entry bilaterally abdomen - distended, soft, bowel sounds normal. Extremities - contractures, no edema. Laboratory Results - last 24 hr 05/14/19 05/14/19 05/14/19 06:00 06:00 15:42 WBC 5.4 RBC 4.17 Hgb 11.7 Hct 34.7 L MCV 83.2 MCH 28.1 MCHC 33.8 RDW 14.6 Plt Count 211 MPV 7.7 Absolute Neuts (auto) 4.5 Neutrophils % 84.2 H Neutrophils % (Manual) 75.3 Band Neutrophils % 2.1 Lymphocytes % 7.6 L Lymphocytes % (Manual) 9.3 Monocytes % 5.7 D Monocytes % (Manual) 10 D Eosinophils % 2.3 Eosinophils % (Manual) 1.0 D Basophils % 0.2 Basophils % (Manual) 0.0 Myelocytes % (Man) 0 Promyelocytes % (Man) 0 Blast Cells % (Manual) 1 H D Nucleated RBC % 0 Metamyelocytes 1 Hypochromia 0 Platelet Estimate Normal Polychromasia 0 Poikilocytosis 0 Anisocytosis 0 Microcytosis 0 Macrocytosis 0 Sodium 141 Potassium 3.4 L Chloride 109 H Carbon Dioxide 21 Anion Gap 11 BUN 7.5 Creatinine 0.5 L Est GFR (CKD-EPI)AfAm 168.54 Est GFR (CKD-EPI)NonAf 145.42 Random Glucose 88 Calcium 8.0 L Phosphorus 2.5 Magnesium 2.1 Urine Color Urine Appearance Urine pH Ur Specific [place] Urine Protein Urine Glucose (UA) Urine Ketones Urine Blood Urine Nitrite Urine Bilirubin Urine Urobilinogen Ur Leukocyte Esterase Stool Occult Blood Negative 05/14/19 15:44 WBC RBC Hgb Hct MCV MCH MCHC RDW Plt Count MPV Absolute Neuts (auto) Neutrophils % Neutrophils % (Manual) Band Neutrophils % Lymphocytes % Lymphocytes % (Manual) Monocytes % Monocytes % (Manual) Eosinophils % Eosinophils % (Manual) Basophils % Basophils % (Manual) Myelocytes % (Man) Promyelocytes % (Man) Blast Cells % (Manual) Nucleated RBC % Metamyelocytes Hypochromia Platelet Estimate Polychromasia Poikilocytosis Anisocytosis Microcytosis Macrocytosis Sodium Potassium Chloride Carbon Dioxide Anion Gap BUN Creatinine Est GFR (CKD-EPI)AfAm Est GFR (CKD-EPI)NonAf Random Glucose Calcium Phosphorus Magnesium Urine Color Yellow Urine Appearance Clear Urine pH 7.0 Ur Specific [place] 1.013 Urine Protein Negative Urine Glucose (UA) Negative Urine Ketones 1+ H Urine Blood Negative Urine Nitrite Negative Urine Bilirubin Negative Urine Urobilinogen 1.0 Ur Leukocyte Esterase Negative Stool Occult Blood Current Medications Generic Name Dose Route Start Last Admin Trade Name Freq PRN Reason Stop Dose Admin Clobazam 5 mg 05/15/19 07:00 Onfi - PO AM LINETTE Clobazam 10 mg 05/14/19 22:00 Onfi - PO HS LINETTE Diazepam 1 mg 05/14/19 14:00 05/14/19 14:11 Valium - PO 1 mg TID LINETTE Administration Fluticasone Propionate 2 spray 05/14/19 12:45 05/14/19 15:16 Flonase - NS 2 spray DAILY LINETTE Administration Fluticasone Propionate 1 spray 05/15/19 10:00 Flonase - NS DAILY LINETTE Sodium Chloride 1,000 mls @ 100 mls/hr 05/11/19 20:00 05/13/19 21:40 Normal Saline - IV 100 mls/hr ASDIR LINETTE Administration Piperacillin Sod/Tazobactam 50 mls @ 100 mls/hr 05/12/19 18:00 05/14/19 17:32 Sod 3.375 gm/ Dextrose IVPB 100 mls/hr Q8H-IV LINETTE Administration Protocol Potassium Phosphate 30 mm/ 510 mls @ 62.5 mls/hr 05/14/19 12:33 Dextrose IVPB 05/14/19 20:42 ONCE ONE Sodium Chloride 1,000 mls @ 125 mls/hr 05/14/19 13:00 05/14/19 14:51 Normal Saline - IV 125 mls/hr ASDIR LINETTE Administration Vancomycin HCl 750 mg/ 250 mls @ 250 mls/hr 05/14/19 15:15 05/14/19 17:58 Dextrose IVPB 250 mls/hr Q24H LINETTE Administration Protocol Lamotrigine 100 mg/ 125 mg 05/14/19 22:00 Lamotrigine 25 mg PO BID LINETTE Metoclopramide HCl 10 mg 05/14/19 14:00 05/14/19 17:32 Reglan - PO 10 mg QID LINETTE Administration Polyethylene Glycol 17 gm 05/13/19 19:45 05/14/19 14:50 Miralax (For Daily Use) - PO 17 gm DAILY [facility] Administration Simethicone 80 mg 05/15/19 10:00 Mylicon - PO DAILY LINETTE Tizanidine HCl 4 mg 05/14/19 22:00 Tizanidine Hcl PO BID [facility] Topiramate 50 mg 05/14/19 22:00 Topamax - PO BID [facility] Home Medications Medication Instructions Recorded Acetaminophen [Tylenol] 650 mg PO Q4H PRN 02/09/19 Diazepam 1 mg PO TID 02/09/19 FA/Mv,Ca,Iron,Min/Lycopene/Lut 1 each PO HS 02/09/19 [Centravites Tablet] Lamotrigine [LaMICtal -] 125 mg PO BID 02/09/19 Loratadine [Claritin -] 10 mg PO HS 02/09/19 Magnesium Hydrox 2400MG/30Ml [Milk 35 ml PO BID 02/09/19 of Magnesia -] Tizanidine HCl [Zanaflex (Nf) -] 4 mg PO BID 02/09/19 Bisacodyl Suppository [Dulcolax 10 mg [place] PRN PRN 05/05/19 Suppository -] Cholecalciferol (Vitamin D3) 400 iu PO BID 05/05/19 [Vitamin D3] Fluticasone Prop 0.05% Nasal 1 - 2 spray NS DAILY 05/05/19 [Flonase -] Simethicone 80 mg PO PRN 05/05/19 Clobazam [Onfi -] 5 mg PO AM 05/11/19 Metoclopramide HCl [Reglan -] 10 mg PO QID 05/11/19 Sodium Phosphate,[place]-Dibasic 133 ml RC ASDIR PRN 05/11/19 [Fleet Enema] Topiramate 50 mg PO BID 05/11/19 Wheat Dextrin/Calcium Carb [Cvs 1 each PO DAILY 05/11/19 Easy Fiber Chewable Tablet] Bisacodyl 10 mg PO DAILY 05/12/19 Clobazam [Onfi -] 10 mg PO HS 05/12/19 Diazepam 1 mg PO TID 05/12/19 Diazepam [Diastat Acudial] 1 each RC PRN 05/12/19 Lactulose 30 ml PO HS 05/12/19 Lamotrigine [Lamotrigine ER] 125 mg PO BID 05/12/19 Nystatin Powder [Nystop Topical 30 gm TP ASDIR 05/12/19 Powder -] Olopatadine HCl 2.5 ml OU BID PRN 05/12/19 Sennosides [Senna] 3 tab PO HS 05/12/19 Sodium Chloride [[place]ume Saline] 2 sprays NS DAILY 05/12/19 Sodium Chloride [[place]ume Saline] 2 sprays NS PRN 05/12/19 ASSESSMENT/PLAN: 28 year old male resident at [facility] with PMHx of severe MR, seizure disorder, functional quadriplegia, [place] syndrome, s/p IMPERSONATOR CHARACTER shunt, brought in for abdominal distention/vomiting, which is recurrent, found to have multifocal pneumonia, developed fever and neutropenia in ED. CT Chest/Abdomen/Pelvis - distended bowels, GERARD/LLL/RLL infiltrates. 1. Sepsis secondary to Multifocal Pneumonia, likely due to Aspiration Neutropenia possibly due to marrow suppression due to sepsis - neutropenia resolved. Still febrile. Blood Cx negative Continue IV Fluids Resume diet as recommended by INTERNET CAFE MANAGER - Chopped with thin liquids. IV Vanco added to IV Zosyn ID following. 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 Recent admission for same. Seen by surgery who recommended Senna. Will resume bowel regimen. 3. Hypokalemia - repleted. 4. AUSTYN sec to Sepsis - improved with IV hydration. 5. FOBT pos stool. No melena/hematochezia. No Anemia. GI evaluated - not for endoscopy at this time. 6. Seizure Disorder - resumed on Diazepam, Lamotrigine, Clobazam, Topiramate. DVT Px - Heparin held due to FOBT pos stool. SCDs.
--- NOTE | 2019-05-14 19:51 | PN ---
Physical Exam: SUBJECTIVE: Patient seen and examined. Soft grunts, nonverbal. NC 2L OBJECTIVE: Vital Signs Period Temp Pulse Resp BP Sys/Vigil Pulse Ox Last 24 Hr 98.3 F-100.9 F 76-116 18-30 91-138/57-77 98 GENERAL: nonverbal, NAD HEAD: Normal with no signs of trauma. No temporal wasting EYES: sclera anicteric, conjunctiva clear and w/o pallor ENT: Ears normal, nares patent, moist mucus membranes NECK: Trachea midline, full range of motion, supple. LUNGS: Breath sounds equal, CTABL, no wheezes, no crackles, no accessory muscle use. HEART: tachycardia, S1, S2 without murmur, rub or gallop. ABDOMEN: distended, tympanic to percussion, nonTTP [id number], no guarding or rebound, BS present. Rectal tone normal. No firm stool noted. Thin brown stool on glove w/o alisia blood EXTREMITIES: atrophied and thin NEUROLOGICAL: nonverbal, soft grunts SKIN: Warm, dry, normal turgor, no rashes or lesions noted Laboratory Results - last 24 hr 05/14/19 05/14/19 05/14/19 06:00 06:00 15:42 WBC 5.4 RBC 4.17 Hgb 11.7 Hct 34.7 L MCV 83.2 MCH 28.1 MCHC 33.8 RDW 14.6 Plt Count 211 MPV 7.7 Absolute Neuts (auto) 4.5 Neutrophils % 84.2 H Neutrophils % (Manual) 75.3 Band Neutrophils % 2.1 Lymphocytes % 7.6 L Lymphocytes % (Manual) 9.3 Monocytes % 5.7 D Monocytes % (Manual) 10 D Eosinophils % 2.3 Eosinophils % (Manual) 1.0 D Basophils % 0.2 Basophils % (Manual) 0.0 Myelocytes % (Man) 0 Promyelocytes % (Man) 0 Blast Cells % (Manual) 1 H D Nucleated RBC % 0 Metamyelocytes 1 Hypochromia 0 Platelet Estimate Normal Polychromasia 0 Poikilocytosis 0 Anisocytosis 0 Microcytosis 0 Macrocytosis 0 Sodium 141 Potassium 3.4 L Chloride 109 H Carbon Dioxide 21 Anion Gap 11 BUN 7.5 Creatinine 0.5 L Est GFR (CKD-EPI)AfAm 168.54 Est GFR (CKD-EPI)NonAf 145.42 Random Glucose 88 Lactic Acid Calcium 8.0 L Phosphorus 2.5 Magnesium 2.1 Urine Color Urine Appearance Urine pH Ur Specific [place] Urine Protein Urine Glucose (UA) Urine Ketones Urine Blood Urine Nitrite Urine Bilirubin Urine Urobilinogen Ur Leukocyte Esterase Stool Occult Blood Negative 05/14/19 05/14/19 15:44 18:30 WBC RBC Hgb Hct MCV MCH MCHC RDW Plt Count MPV Absolute Neuts (auto) Neutrophils % Neutrophils % (Manual) Band Neutrophils % Lymphocytes % Lymphocytes % (Manual) Monocytes % Monocytes % (Manual) Eosinophils % Eosinophils % (Manual) Basophils % Basophils % (Manual) Myelocytes % (Man) Promyelocytes % (Man) Blast Cells % (Manual) Nucleated RBC % Metamyelocytes Hypochromia Platelet Estimate Polychromasia Poikilocytosis Anisocytosis Microcytosis Macrocytosis Sodium Potassium Chloride Carbon Dioxide Anion Gap BUN Creatinine Est GFR (CKD-EPI)AfAm Est GFR (CKD-EPI)NonAf Random Glucose Lactic Acid 0.8 Calcium Phosphorus Magnesium Urine Color Yellow Urine Appearance Clear Urine pH 7.0 Ur Specific [place] 1.013 Urine Protein Negative Urine Glucose (UA) Negative Urine Ketones 1+ H Urine Blood Negative Urine Nitrite Negative Urine Bilirubin Negative Urine Urobilinogen 1.0 Ur Leukocyte Esterase Negative Stool Occult Blood Active Medications Generic Name Dose Route Start Last Admin Trade Name Ayanq PRN Reason Stop Dose Admin Clobazam 5 mg 05/15/19 07:00 Onfi - PO AM LINETTE Clobazam 10 mg 05/14/19 22:00 Onfi - PO HS LINETTE Diazepam 1 mg 05/14/19 14:00 05/14/19 14:11 Valium - PO 1 mg TID LINETTE Administration Fluticasone Propionate 2 spray 05/14/19 12:45 05/14/19 15:16 Flonase - NS 2 spray DAILY LINETTE Administration Fluticasone Propionate 1 spray 05/15/19 10:00 Flonase - NS DAILY LINETTE Piperacillin Sod/Tazobactam 50 mls @ 100 mls/hr 05/12/19 18:00 05/14/19 17:32 Sod 3.375 gm/ Dextrose IVPB 100 mls/hr Q8H-IV LINETTE Administration Protocol Potassium Phosphate 30 mm/ 510 mls @ 62.5 mls/hr 05/14/19 12:33 Dextrose IVPB 05/14/19 20:42 ONCE ONE Vancomycin HCl 750 mg/ 250 mls @ 250 mls/hr 05/14/19 15:15 05/14/19 17:58 Dextrose IVPB 250 mls/hr Q24H LINETTE Administration Protocol Sodium Chloride 1,000 mls @ 100 mls/hr 05/14/19 18:27 05/14/19 19:23 Normal Saline - IV Not Given ASDIR LINETTE Lamotrigine 100 mg/ 125 mg 05/14/19 22:00 Lamotrigine 25 mg PO BID LINETTE Metoclopramide HCl 10 mg 05/14/19 14:00 05/14/19 17:32 Reglan - PO 10 mg QID LINETTE Administration Polyethylene Glycol 17 gm 05/13/19 19:45 05/14/19 14:50 Miralax (For Daily Use) - PO 17 gm DAILY LINETTE Administration Senna 2 tab 05/14/19 22:00 Senna - PO HS LINETTE Simethicone 80 mg 05/15/19 10:00 Mylicon - PO DAILY LINETTE Tizanidine HCl 4 mg 05/14/19 22:00 Tizanidine Hcl PO BID LINETTE Topiramate 50 mg 05/14/19 22:00 Topamax - PO BID LINETTE Vital Signs Temp 100.6 F H 05/14/19 16:30 Pulse 103 H 05/14/19 16:30 Resp 22 H 05/14/19 16:30 BP 129/72 05/14/19 16:30 Pulse Ox 98 05/14/19 09:00 Intake & Output 05/13/19 05/14/19 05/14/19 23:59 11:59 23:59 Intake Total 1514 238 2922 Balance 0751 437 1817 Weight 38.102 kg Intake: IV 504 483 6606 Normal Saline - 1,000 ml 770 400 @ 100 mls/hr IV ASDIR LINETTE Rx#:[id number] Normal Saline - 1,000 ml 800 @ 100 mls/hr IV ASDIR LINETTE Rx#:[id number] Normal Saline - 1,000 ml 375 @ 125 mls/hr IV ASDIR LINETTE Rx#:[id number] Normal Saline - 500 ml @ 500 500 mls/hr IV ASDIR STA Rx#:[id number] Normal Saline - 500 ml @ 500 500 mls/hr IV ASDIR STA Rx#:[id number] IVPB 300 350 550 Other: Voiding Method Incontinent Incontinent Incontinent # Unmeasured Voids Void 5 2 4 Bowel Movement No Yes: medium # Bowel Movements 2 Height 4 ft 8 in Body Mass Index (BMI) 18.8 ASSESSMENT/PLAN: 28 y/o/m from [facility] with PMHx of severe MR, seizure disorder, functional quadriplegia, Huan syndrome, and constipation here for abdominal distention and vomiting. #Sepsis -Pneumonia - likely secondary to aspiration of vomit >CT Abd&pelvis - developing left basilar infiltrate >CXR(05/12/19): LLL consolidation, possible early R basilar infiltrate >CT chest(05/12/19): airspace disease/PNA in LLL, lesser extent in GERARD, RLL; no pneumothorax; no pleural effusion -Patient started on vanc/zosyn in the ED -Zosyn, vancomycin -CT chest, CXR ordered for further evaluation -WBC ~0.8; neutropenia precautions -Speech/Swallow eval for aspiration risk -- recommend deferment of PO trial, NPO for now -appreciate ID recs: --suspect multilobar aspiration pneumonia --agree with cultures --recieved vanco/zosyn --continue zosyn --add vancomycin --fu urinary antigens as well- legionella/pneumococal -fu BCX, UCX for 05/14/19 #FOBT positive -GI consulted -- no endoscopy at this time #AUSTYN -- resolving >Cr ~1.5 --> 0.8 after NS 4L -cw NS 1000 mls at 100mls/hr -Monitor BUN/Creatinine #Ileus - CT Abd&pelvis - little significant change in moderate to marked small bowel dilatation since 05/05/19. the amount of solid stool has decreased. There does remain a large amount of predominantly liquid stool within the sigmoid colon and rectum -NPO -restart senna once tolerating PO -Stool occult positive for blood. HGB/HCT at 15.4/47 -replete Mg, Phos, K as necessary #Hypokalemia -IV KCl 10meq x3 given in ED -Will monitor with labs #Lactic Acid elevation -lactic acid 2.1-->1.8 --> 2.2 -->0.8 -IVF #Seizure disorder -Patient on Lamictal at intermediate -Switched to Keppra 500mg IV BID as patient is NPO #FEN -NS 1000mls @100mls/hr -S&S: chopped diet and thin liquid -routine BMP monitoring #Prophylaxis - Heparin 5000mg TID #Disposition -full code -admitted to med/surg Visit type - Emergency Visit Emergency Visit: No - New Patient This patient is new to me today: No - Critical Care Critical Care patient: No ATTENDING PHYSICIAN STATEMENT I saw and evaluated the patient. I reviewed the resident's note and discussed the case with the resident. I agree with the resident's findings and plan as documented. SUBJECTIVE: OBJECTIVE: ASSESSMENT AND PLAN:
[2019-05-14] MEDS: ACETAMINOPHEN 325 MG TABLET (FP) PO ONE ×2 (20:11→21:27)
[2019-05-14] MEDS ORDERED: ACETAMINOPHEN 1000 MG/100 ML VIAL (NON FORMULARY) IVPB ONE (21:15)
[2019-05-14] MEDS ORDERED: lamoTRIgine 100 MG TABLET (FP) PO SCH (22:00)
[2019-05-14] MEDS: TOPIRAMATE 25 MG TABLET (FP) PO SCH (23:28)
[2019-05-14] MEDS: SENNOSIDES 8.6MG TABLET (FP) PO SCH (23:28)
[2019-05-14] MEDS: LAMOTRIGINE 100 MG, LAMOTRIGINE 25 MG PO SCH (23:29)
[2019-05-14] MEDS: TIZANIDINE HCL 4 MG TABLET PO SCH (23:30)
[2019-05-14] MEDS: cloBAZam 10 MG TABLET PO SCH (23:31)
[2019-05-15] MEDS ORDERED: DEXTROSE 5%-WATER - 50 ML IVPB ONE ×4 (01:06→23:03)
[2019-05-15] MEDS ORDERED: PIPERACILLIN/TAZOBACTAM 3.375 GM VIAL IVPB ONE ×4 (01:06→23:03)
[2019-05-15] MEDS: PIPERACILLIN/TAZOB 3.375 GM 3.375 GM in DEXTROSE 5%-WATER - 50 ML IVPB SCH ×3 (01:09→17:53)
[2019-05-15] MEDS: cloBAZam 10 MG TABLET PO SCH ×2 (06:47→21:51)
[2019-05-15] MEDS: diazePAM 2 MG TABLET PO SCH ×3 (06:48→21:50)
[2019-05-15 09:14] LABS: BASO % 0.2 % (0-2.0); EOS % 1.6 % (0-4.5); HEMATOCRIT 39.2 % (35.4-49); HEMOGLOBIN 13.2 GM/dL (11.7-16.9); LYMPH % 8.4 % (8-40); MCH 27.9 pg (25.7-33.7); MCHC 33.8 g/dl (32.0-35.9); MEAN CELL VOLUME 82.8 fl (80-96); MEAN PLT VOLUME 7.1 fl (7.5-11.1); NEUT % 73.8 % (42.8-82.8); PLATELET COUNT 191 K/MM3 (134-434); RBC 4.74 M/mm3 (4.00-5.60); RDW 14.6 % (11.9-15.9); WHITE BLOOD COUNT 4.5 K/mm3 (4.0-10.0)
[2019-05-15 09:49] LABS: ALBUMIN 2.8 g/dl (3.4-5.0); BILIRUBIN,TOTAL 0.8 mg/dL (0.2-1); CALCIUM 8.4 mg/dL (8.5-10.1); CREATININE 0.5 mg/dL (0.55-1.3); MAGNESIUM 1.8 mg/dL (1.8-2.4); PHOSPHOROUS 2.8 mg/dL (2.5-4.9); POTASSIUM 4.2 mmol/L (3.5-5.1); TOT PROT 6.1 g/dl (6.4-8.2)
[2019-05-15] MEDS ORDERED: PT OWN MED DRAWER 7, Y5N ONE ×4 (10:18→20:53)
[2019-05-15] MEDS: TOPIRAMATE 25 MG TABLET (FP) PO SCH ×2 (10:39→21:50)
[2019-05-15] MEDS: SIMETHICONE 80 MG TAB.CHEW (FP) PO SCH (10:39)
[2019-05-15] MEDS: METOCLOPRAMIDE HCL 10 MG TABLET (FP) PO SCH ×4 (10:40→21:51)
[2019-05-15] MEDS: LAMOTRIGINE 100 MG, LAMOTRIGINE 25 MG PO SCH ×2 (10:41→21:53)
[2019-05-15] MEDS: TIZANIDINE HCL 4 MG TABLET PO SCH ×2 (10:41→21:52)
[2019-05-15] MEDS: POLYETHYLENE GLYCOL 3350 119 GM BTL PO SCH (10:43)
[2019-05-15] MEDS: FLUTICASONE PROP 0.05% 16 GM NASAL SPRAY NS SCH ×2 (10:44→12:22)
[2019-05-15 12:39] LABS: ANISOCYTOSIS 1+; MACROCYTOSIS 0; OVALOCYTE 1+; PLATELET ESTIMATE NORMAL
[2019-05-15] MEDS: ACETAMINOPHEN 650 MG/20.3 ML ORAL SOLUTION (CUPS) PO PRN (13:00)
--- NOTE | 2019-05-15 13:46 | PN ---
Progress Note (short form) - Note Progress Note: NAD continued intermittent fevers Vital Signs Period Temp Pulse Resp BP Sys/Vigil Pulse Ox Last 24 Hr 98.3 F-101.5 F 76-108 20-25 104-139/62-97 97 cor-rrr lungs crackles/consolidaiton RLL abd soft,nt, slightly distended no skin breakdown ext no edema CBC, BMP 05/15/19 08:54 05/15/19 08:54 Microbiology 05/11/19 18:00 Blood - Peripheral Venous Blood Culture - Preliminary NO GROWTH OBTAINED AFTER 72 HOURS, INCUBATION TO CONTINUE FOR 2 DAYS. 05/11/19 18:10 Blood - Peripheral Venous Blood Culture - Preliminary NO GROWTH OBTAINED AFTER 72 HOURS, INCUBATION TO CONTINUE FOR 2 DAYS. 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 epilepsy benign cyclic neutropenia d/w mother at bedside Problem List - Problems (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 - OTHER SPECIFIED FUNCTIONAL INTESTINAL DISORDERS (2) PNA (pneumonia) Code(s): J18.9 - PNEUMONIA, UNSPECIFIED ORGANISM Qualifiers: Pneumonia type: due to unspecified organism Laterality: left Lung location: lower lobe of lung Qualified Code(s): J18.1 - Lobar pneumonia, unspecified organism (3) Congenital quadriplegia Code(s): G80.8 - OTHER CEREBRAL PALSY (4) Profound mental handicap Code(s): F73 - PROFOUND INTELLECTUAL DISABILITIES (5) S/P ventriculoperitoneal shunt Code(s): Z98.2 - PRESENCE OF CEREBROSPINAL FLUID DRAINAGE DEVICE (6) Epilepsy without status epilepticus, not intractable Code(s): G40.909 - EPILEPSY, UNSP, NOT INTRACTABLE, WITHOUT STATUS EPILEPTICUS Qualifiers: Epilepsy type: unspecified Qualified Code(s): G40.909 - Epilepsy, unspecified, not intractable, without status epilepticus
[2019-05-15] MEDS: DEXTROSE 5%-0.45% SALINE 1,000 ML IV SCH (14:03)
--- NOTE | 2019-05-15 14:09 | PN ---
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 No po acceptance with mother assisting. Only accepting crushed meds in juice via syringe. Pt on a/b tx and febrile, likely affecting appetite/po acceptance.He normally enjoys eating. Trial of Ensure, magic cup, ensure pudding
[2019-05-15] MEDS ORDERED: DEXTROSE 5%-NORMAL SALINE 1,000 ML IV SCH (14:15)
[2019-05-15] MEDS: VANCOMYCIN 750 MG in DEXTROSE 5%-WATER - 250 ML IVPB SCH (14:16)
--- NOTE | 2019-05-15 18:07 | PN ---
Physical Exam: SUBJECTIVE: Patient seen and examined. Sleeping comfortably in bed. Soft grunts with examination. OBJECTIVE: Vital Signs Period Temp Pulse Resp BP Sys/Vigil Pulse Ox Last 24 Hr 98.3 F-101.5 F 88-108 20-25 124-139/67-97 93-97 GENERAL: nonverbal, NAD HEAD: Normal with no signs of trauma. No temporal wasting EYES: sclera anicteric, conjunctiva clear and w/o pallor ENT: Ears normal, nares patent, moist mucus membranes NECK: Trachea midline, full range of motion, supple. LUNGS: Breath sounds equal, CTABL, no wheezes, no crackles, no accessory muscle use. HEART: tachycardia, S1, S2 without murmur, rub or gallop. ABDOMEN: distended, tympanic to percussion, nonTTP [id number], no guarding or rebound, BS present. Rectal tone normal. No firm stool noted. Thin brown stool on glove w/o alisia blood EXTREMITIES: atrophied and thin NEUROLOGICAL: nonverbal, soft grunts SKIN: Warm, dry, normal turgor, no rashes or lesions noted Laboratory Results - last 24 hr 05/14/19 05/15/19 05/15/19 18:30 08:54 08:54 WBC 4.5 RBC 4.74 Hgb 13.2 Hct 39.2 MCV 82.8 MCH 27.9 MCHC 33.8 RDW 14.6 Plt Count 191 MPV 7.1 L Absolute Neuts (auto) 3.3 Neutrophils % 73.8 Neutrophils % (Manual) 61.6 Band Neutrophils % 3.0 Lymphocytes % 8.4 Lymphocytes % (Manual) 11.1 Monocytes % 16.0 H D Monocytes % (Manual) 15 H Eosinophils % 1.6 Eosinophils % (Manual) 6.1 H D Basophils % 0.2 Basophils % (Manual) 0.0 Myelocytes % (Man) 0 Promyelocytes % (Man) 0 Blast Cells % (Manual) 0 D Nucleated RBC % 0 Metamyelocytes 0 D Hypochromia 0 Platelet Estimate Normal Platelet Comment Present Polychromasia 1+ Poikilocytosis 1+ Anisocytosis 1+ Microcytosis 1+ Macrocytosis 0 Spherocytes 1+ Ovalocytes 1+ Sodium 133 L Potassium 4.2 Chloride 99 Carbon Dioxide 25 Anion Gap 10 BUN 5.0 L Creatinine 0.5 L Est GFR (CKD-EPI)AfAm 168.54 Est GFR (CKD-EPI)NonAf 145.42 Random Glucose 109 H Lactic Acid 0.8 Calcium 8.4 L Phosphorus 2.8 Magnesium 1.8 Total Bilirubin 0.8 AST 25 ALT 31 Alkaline Phosphatase 72 Total Protein 6.1 L Albumin 2.8 L Active Medications Generic Name Dose Route Start Last Admin Trade Name Freq PRN Reason Stop Dose Admin Acetaminophen 650 mg 05/15/19 12:10 05/15/19 13:00 Tylenol Oral Solution - PO 650 mg Q6H PRN Administration PAIN OR FEVER Clobazam 5 mg 05/15/19 07:00 05/15/19 06:47 Onfi - PO 5 mg AM LINETTE Administration Clobazam 10 mg 05/14/19 22:00 05/14/19 23:31 Onfi - PO 10 mg HS LINETTE Administration Diazepam 1 mg 05/14/19 14:00 05/15/19 14:02 Valium - PO 1 mg TID LINETTE Administration Fluticasone Propionate 2 spray 05/14/19 12:45 05/15/19 12:22 Flonase - NS Not Given DAILY LINETTE Fluticasone Propionate 1 spray 05/15/19 10:00 05/15/19 10:44 Flonase - NS 1 spray DAILY LINETTE Administration Piperacillin Sod/Tazobactam 50 mls @ 100 mls/hr 05/12/19 18:00 05/15/19 17:53 Sod 3.375 gm/ Dextrose IVPB 100 mls/hr Q8H-IV LINETTE Administration Protocol Vancomycin HCl 750 mg/ 250 mls @ 250 mls/hr 05/14/19 15:15 05/15/19 14:16 Dextrose IVPB 250 mls/hr Q24H LINETTE Administration Protocol Dextrose/Sodium Chloride 1,000 mls @ 75 mls/hr 05/15/19 10:00 05/15/19 14:03 D5-1/2ns - IV 75 mls/hr ASDIR LINETTE Administration Dextrose/Sodium Chloride 1,000 mls @ 100 mls/hr 05/15/19 14:15 05/15/19 17:52 D5-Ns - IV 100 mls/hr ASDIR LINETTE Administration Lamotrigine 100 mg/ 125 mg 05/14/19 22:00 05/15/19 10:41 Lamotrigine 25 mg PO 125 mg BID LINETTE Administration Metoclopramide HCl 10 mg 05/14/19 14:00 05/15/19 17:53 Reglan - PO 10 mg QID LINETTE Administration Polyethylene Glycol 17 gm 05/13/19 19:45 05/15/19 10:43 Miralax (For Daily Use) - PO 17 gm DAILY LINETTE Administration Senna 2 tab 05/14/19 22:00 05/14/19 23:28 Senna - PO 2 tab HS LINETTE Administration Simethicone 80 mg 05/15/19 10:00 05/15/19 10:39 Mylicon - PO 80 mg DAILY LINETTE Administration Tizanidine HCl 4 mg 05/14/19 22:00 05/15/19 10:41 Tizanidine Hcl PO 4 mg BID LINETTE Administration Topiramate 50 mg 05/14/19 22:00 05/15/19 10:39 Topamax - PO 50 mg BID LINETTE Administration Vital Signs Temp 99 F 05/15/19 14:00 Pulse 89 05/15/19 14:00 Resp 20 05/15/19 14:00 BP 127/85 05/15/19 14:00 Pulse Ox 93 L 05/15/19 09:00 Intake & Output 05/14/19 05/15/19 05/15/19 23:59 11:59 23:59 Intake Total 3325 1250 Balance 3325 1250 Intake: IV 2575 700 Normal Saline - 1,000 ml 1200 700 @ 100 mls/hr IV ASDIR LINETTE Rx#:[id number] Normal Saline - 1,000 ml 375 @ 125 mls/hr IV ASDIR LINETTE Rx#:[id number] Normal Saline - 500 ml @ 500 500 mls/hr IV ASDIR STA Rx#:[id number] Normal Saline - 500 ml @ 500 500 mls/hr IV ASDIR STA Rx#:[id number] IVPB 750 550 Other: Voiding Method Incontinent Incontinent Incontinent # Unmeasured Voids Void 4 3 Bowel Movement No No Yes # Bowel Movements 2 1 ASSESSMENT/PLAN: 28 y/o/m from [facility] with PMHx of severe MR, seizure disorder, functional quadriplegia, Huan syndrome, and constipation here for abdominal distention and vomiting. #Sepsis -Pneumonia - likely secondary to aspiration of vomit >CT Abd&pelvis - developing left basilar infiltrate >CXR(05/12/19): LLL consolidation, possible early R basilar infiltrate >CT chest(05/12/19): airspace disease/PNA in LLL, lesser extent in GERARD, RLL; no pneumothorax; no pleural effusion -Patient started on vanc/zosyn in the ED -Zosyn, vancomycin -CT chest, CXR ordered for further evaluation -WBC ~0.8; neutropenia precautions -Speech/Swallow eval for aspiration risk -- recommend deferment of PO trial, NPO for now -appreciate ID recs: --suspect multilobar aspiration pneumonia --agree with cultures --recieved vanco/zosyn --continue zosyn --add vancomycin --add zithromax --fu urinary antigens as well- legionella/pneumococal -fu BCX, UCX for 05/14/19 #FOBT positive -GI consulted -- no endoscopy at this time #AUSTYN -- resolving >Cr ~1.5 --> 0.8 after NS 4L -cw NS 1000 mls at 100mls/hr -Monitor BUN/Creatinine #Ileus - CT Abd&pelvis - little significant change in moderate to marked small bowel dilatation since 05/05/19. the amount of solid stool has decreased. There does remain a large amount of predominantly liquid stool within the sigmoid colon and rectum -NPO -restart senna once tolerating PO -Stool occult positive for blood. HGB/HCT at 15.4/47 -replete Mg, Phos, K as necessary #Hypokalemia -IV KCl 10meq x3 given in ED -Will monitor with labs #Lactic Acid elevation -lactic acid 2.1-->1.8 --> 2.2 -->0.8 -IVF #Seizure disorder -Patient on Lamictal at alf -Switched to Keppra 500mg IV BID as patient is NPO #FEN -mIVF: D5NS -S&S: Ensure, magic cup, ensure pudding -routine BMP monitoring #Prophylaxis - Heparin 5000mg TID #Disposition -full code -admitted to med/surg Visit type - Emergency Visit Emergency Visit: No - New Patient This patient is new to me today: No - Critical Care Critical Care patient: No ATTENDING PHYSICIAN STATEMENT I saw and evaluated the patient. I reviewed the resident's note and discussed the case with the resident. I agree with the resident's findings and plan as documented. SUBJECTIVE: OBJECTIVE: ASSESSMENT AND PLAN:
[2019-05-15] MEDS: AZITHROMYCIN IVPB 250 MG in DEXTROSE 5%-WATER - 250 ML IVPB SCH (18:35)
--- NOTE | 2019-05-15 18:51 | PN ---
Teaching Attending Note Name of Resident: Ander Cobos ATTENDING PHYSICIAN STATEMENT I saw and evaluated the patient. I reviewed the resident's note and discussed the case with the resident. I agree with the resident's findings and plan as documented. SUBJECTIVE: Non-verbal, unable to participate in medical interview. OBJECTIVE: Febrile, Tmax 101.5 yesterday, Hemodynamically Stable. More awake. Non-verbal. Appears comfortable. Last Vital Signs Temp Pulse Resp BP Pulse Ox 99 F 89 20 127/85 93 L 05/15/19 14:00 05/15/19 14:00 05/15/19 14:00 05/15/19 14:00 05/15/19 09:00 Heart - S1, S2, SR Lungs - good air entry bilaterally abdomen - distended, soft, bowel sounds normal. Extremities - contractures, no edema. Laboratory Results - last 24 hr 05/14/19 05/15/19 05/15/19 18:30 08:54 08:54 WBC 4.5 RBC 4.74 Hgb 13.2 Hct 39.2 MCV 82.8 MCH 27.9 MCHC 33.8 RDW 14.6 Plt Count 191 MPV 7.1 L Absolute Neuts (auto) 3.3 Neutrophils % 73.8 Neutrophils % (Manual) 61.6 Band Neutrophils % 3.0 Lymphocytes % 8.4 Lymphocytes % (Manual) 11.1 Monocytes % 16.0 H D Monocytes % (Manual) 15 H Eosinophils % 1.6 Eosinophils % (Manual) 6.1 H D Basophils % 0.2 Basophils % (Manual) 0.0 Myelocytes % (Man) 0 Promyelocytes % (Man) 0 Blast Cells % (Manual) 0 D Nucleated RBC % 0 Metamyelocytes 0 D Hypochromia 0 Platelet Estimate Normal Platelet Comment Present Polychromasia 1+ Poikilocytosis 1+ Anisocytosis 1+ Microcytosis 1+ Macrocytosis 0 Spherocytes 1+ Ovalocytes 1+ Sodium 133 L Potassium 4.2 Chloride 99 Carbon Dioxide 25 Anion Gap 10 BUN 5.0 L Creatinine 0.5 L Est GFR (CKD-EPI)AfAm 168.54 Est GFR (CKD-EPI)NonAf 145.42 Random Glucose 109 H Lactic Acid 0.8 Calcium 8.4 L Phosphorus 2.8 Magnesium 1.8 Total Bilirubin 0.8 AST 25 ALT 31 Alkaline Phosphatase 72 Total Protein 6.1 L Albumin 2.8 L Current Medications Generic Name Dose Route Start Last Admin Trade Name Ayanq PRN Reason Stop Dose Admin Acetaminophen 650 mg 05/15/19 12:10 05/15/19 13:00 Tylenol Oral Solution - PO 650 mg Q6H PRN Administration PAIN OR FEVER Clobazam 5 mg 05/15/19 07:00 05/15/19 06:47 Onfi - PO 5 mg AM [facility] Administration Clobazam 10 mg 05/14/19 22:00 05/14/19 23:31 Onfi - PO 10 mg HS [facility] Administration Diazepam 1 mg 05/14/19 14:00 05/15/19 14:02 Valium - PO 1 mg TID [facility] Administration Fluticasone Propionate 2 spray 05/14/19 12:45 05/15/19 12:22 Flonase - NS Not Given DAILY [facility] Fluticasone Propionate 1 spray 05/15/19 10:00 05/15/19 10:44 Flonase - NS 1 spray DAILY [facility] Administration Piperacillin Sod/Tazobactam 50 mls @ 100 mls/hr 05/12/19 18:00 05/15/19 17:53 Sod 3.375 gm/ Dextrose IVPB 100 mls/hr Q8H-IV [facility] Administration Protocol Vancomycin HCl 750 mg/ 250 mls @ 250 mls/hr 05/14/19 15:15 05/15/19 14:16 Dextrose IVPB 250 mls/hr Q24H [facility] Administration Protocol Dextrose/Sodium Chloride 1,000 mls @ 75 mls/hr 05/15/19 10:00 05/15/19 14:03 D5-1/2ns - IV 75 mls/hr ASDIR [facility] Administration Azithromycin 250 mg/ Dextrose 250 mls @ 250 mls/hr 05/15/19 18:15 05/15/19 18 :35 IVPB 250 mls/hr DAILY [facility] Administration Lamotrigine 100 mg/ 125 mg 05/14/19 22:00 05/15/19 10:41 Lamotrigine 25 mg PO 125 mg BID [facility] Administration Metoclopramide HCl 10 mg 05/14/19 14:00 05/15/19 17:53 Reglan - PO 10 mg QID [facility] Administration Polyethylene Glycol 17 gm 05/13/19 19:45 05/15/19 10:43 Miralax (For Daily Use) - PO 17 gm DAILY [facility] Administration Senna 2 tab 05/14/19 22:00 05/14/19 23:28 Senna - PO 2 tab HS [facility] Administration Simethicone 80 mg 05/15/19 10:00 05/15/19 10:39 Mylicon - PO 80 mg DAILY [facility] Administration Tizanidine HCl 4 mg 05/14/19 22:00 05/15/19 10:41 Tizanidine Hcl PO 4 mg BID [facility] Administration Topiramate 50 mg 05/14/19 22:00 05/15/19 10:39 Topamax - PO 50 mg BID [facility] Administration Home Medications Medication Instructions Recorded Acetaminophen [Tylenol] 650 mg PO Q4H PRN 02/09/19 Diazepam 1 mg PO TID 02/09/19 FA/Mv,Ca,Iron,Min/Lycopene/Lut 1 each PO HS 02/09/19 [Centravites Tablet] Lamotrigine [LaMICtal -] 125 mg PO BID 02/09/19 Loratadine [Claritin -] 10 mg PO HS 02/09/19 Magnesium Hydrox 2400MG/30Ml [Milk 35 ml PO BID 02/09/19 of Magnesia -] Tizanidine HCl [Zanaflex (Nf) -] 4 mg PO BID 02/09/19 Bisacodyl Suppository [Dulcolax 10 mg [place] PRN PRN 05/05/19 Suppository -] Cholecalciferol (Vitamin D3) 400 iu PO BID 05/05/19 [Vitamin D3] Fluticasone Prop 0.05% Nasal 1 - 2 spray NS DAILY 05/05/19 [Flonase -] Simethicone 80 mg PO PRN 05/05/19 Clobazam [Onfi -] 5 mg PO AM 05/11/19 Metoclopramide HCl [Reglan -] 10 mg PO QID 05/11/19 Sodium Phosphate,[place]-Dibasic 133 ml RC ASDIR PRN 05/11/19 [Fleet Enema] Topiramate 50 mg PO BID 05/11/19 Wheat Dextrin/Calcium Carb [Cvs 1 each PO DAILY 05/11/19 Easy Fiber Chewable Tablet] Bisacodyl 10 mg PO DAILY 05/12/19 Clobazam [Onfi -] 10 mg PO HS 05/12/19 Diazepam 1 mg PO TID 05/12/19 Diazepam [Diastat Acudial] 1 each RC PRN 05/12/19 Lactulose 30 ml PO HS 05/12/19 Lamotrigine [Lamotrigine ER] 125 mg PO BID 05/12/19 Nystatin Powder [Nystop Topical 30 gm TP ASDIR 05/12/19 Powder -] Olopatadine HCl 2.5 ml OU BID PRN 05/12/19 Sennosides [Senna] 3 tab PO HS 05/12/19 Sodium Chloride [[place] Saline] 2 sprays NS DAILY 05/12/19 Sodium Chloride [[place] Saline] 2 sprays NS PRN 05/12/19 ASSESSMENT/PLAN: 28 year old male resident at [facility] with PMHx of severe MR, seizure disorder, functional quadriplegia, [place]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 CT Chest/Abdomen/Pelvis - distended bowels, GERARD/LLL/RLL infiltrates. 1. Sepsis secondary to Multifocal Pneumonia, likely due to Aspiration Neutropenia possibly due to marrow suppression due to sepsis - neutropenia resolved. Still febrile. Blood Cx negative Continue IV Fluids Resume diet as recommended by PROJECTOR OPERATOR - Chopped with thin liquids. IV Azithromycin added to Zosyn and Vanco pending Urine legionella. ID following. 2. [place] syndrome - recurrent severe distended bowels on CT abdomen - chronic/ recurrent. Recent admission for same. Seen by surgery who recommended Senna. Will resume bowel regimen. Moving bowels. 3. Hypokalemia - repleted. 4. AUSTYN sec to Sepsis - improved with IV hydration. 5. FOBT pos stool. No melena/hematochezia. No Anemia. GI evaluated - not for endoscopy at this time. 6. Seizure Disorder - resumed on Diazepam, Lamotrigine, Clobazam, Topiramate. DVT Px - Heparin held due to FOBT positive stool. SCDs.
[2019-05-15] MEDS: SENNOSIDES 8.6MG TABLET (FP) PO SCH (21:51)
[2019-05-16] MEDS: PIPERACILLIN/TAZOB 3.375 GM 3.375 GM in DEXTROSE 5%-WATER - 50 ML IVPB SCH ×3 (01:09→17:57)
[2019-05-16] MEDS: ACETAMINOPHEN 650 MG/20.3 ML ORAL SOLUTION (CUPS) PO PRN ×2 (03:35→21:29)
[2019-05-16] MEDS: diazePAM 2 MG TABLET PO SCH ×3 (06:38→21:29)
[2019-05-16] MEDS: cloBAZam 10 MG TABLET PO SCH ×2 (06:38→21:27)
[2019-05-16 07:55] LABS: HEMATOCRIT 35.3 % (35.4-49); MCH 28.1 pg (25.7-33.7); MCHC 34.1 g/dl (32.0-35.9); MEAN CELL VOLUME 82.4 fl (80-96); MEAN PLT VOLUME 7.7 fl (7.5-11.1); PLATELET COUNT 178 K/MM3 (134-434); RBC 4.28 M/mm3 (4.00-5.60); RDW 14.3 % (11.9-15.9); WHITE BLOOD COUNT 4.9 K/mm3 (4.0-10.0)
[2019-05-16 08:05] LABS: BLOOD UREA NITROGEN 5.7 mg/dL (7-18); CALCIUM 7.9 mg/dL (8.5-10.1); CREATININE 0.6 mg/dL (0.55-1.3); MAGNESIUM 1.7 mg/dL (1.8-2.4); PHOSPHOROUS 2.8 mg/dL (2.5-4.9); POTASSIUM 3.4 mmol/L (3.5-5.1)
[2019-05-16] MEDS ORDERED: PT OWN MED DRAWER 7, Y5N ONE ×3 (09:27→21:06)
[2019-05-16] MEDS ORDERED: DEXTROSE 5%-WATER - 50 ML IVPB ONE ×2 (09:27→17:14)
[2019-05-16] MEDS ORDERED: PIPERACILLIN/TAZOBACTAM 3.375 GM VIAL IVPB ONE ×2 (09:27→17:14)
[2019-05-16] MEDS: DEXTROSE 5%-0.45% SALINE 1,000 ML IV SCH (09:42)
[2019-05-16] MEDS: FLUTICASONE PROP 0.05% 16 GM NASAL SPRAY NS SCH ×2 (09:43)
[2019-05-16] MEDS: TOPIRAMATE 25 MG TABLET (FP) PO SCH ×2 (09:44→21:28)
[2019-05-16] MEDS: LAMOTRIGINE 100 MG, LAMOTRIGINE 25 MG PO SCH ×2 (09:44→21:28)
[2019-05-16] MEDS: METOCLOPRAMIDE HCL 10 MG TABLET (FP) PO SCH ×4 (09:44→21:29)
[2019-05-16] MEDS: SIMETHICONE 80 MG TAB.CHEW (FP) PO SCH (09:44)
[2019-05-16] MEDS: POLYETHYLENE GLYCOL 3350 119 GM BTL PO SCH (09:44)
[2019-05-16] MEDS: TIZANIDINE HCL 4 MG TABLET PO SCH ×2 (09:44→21:29)
[2019-05-16] MEDS ORDERED: MAGNESIUM SULF 50% (8.12 MEQ/2 ML-1 GM VIAL) IVPB ONE (09:49)
[2019-05-16] MEDS ORDERED: POTASSIUM CHLORIDE ORAL LIQUID 20 MEQ/15 ML PO ONE (09:49)
[2019-05-16] MEDS: AZITHROMYCIN IVPB 250 MG in DEXTROSE 5%-WATER - 250 ML IVPB SCH (10:56)
--- NOTE | 2019-05-16 11:22 | PN ---
Progress Note, Physician History of Present Illness: AWAKE, NON VERBAL BREATHING NON-LABORED FEBRILE - Current Medication List Current Medications: Active Medications Acetaminophen (Tylenol Oral Solution -) 650 mg PO Q6H PRN PRN Reason: PAIN OR FEVER Last Admin: 05/16/19 03:35 Dose: 650 mg Clobazam (Onfi -) 5 mg PO AM [facility] Last Admin: 05/16/19 06:38 Dose: 5 mg Clobazam (Onfi -) 10 mg PO HS [facility] Last Admin: 05/15/19 21:51 Dose: 10 mg Diazepam (Valium -) 1 mg PO TID [facility] Last Admin: 05/16/19 06:38 Dose: 1 mg Fluticasone Propionate (Flonase -) 2 spray NS DAILY [facility] Last Admin: 05/16/19 09:43 Dose: Not Given Fluticasone Propionate (Flonase -) 1 spray NS DAILY [facility] Last Admin: 05/16/19 09:43 Dose: 1 spray Piperacillin Sod/Tazobactam (Sod 3.375 gm/ Dextrose) 50 mls @ 100 mls/hr IVPB Q8H-IV [facility]; Protocol Last Admin: 05/16/19 09:44 Dose: 100 mls/hr Vancomycin HCl 750 mg/ (Dextrose) 250 mls @ 250 mls/hr IVPB Q24H [facility]; Protocol Last Admin: 05/15/19 14:16 Dose: 250 mls/hr Dextrose/Sodium Chloride (D5-1/2ns -) 1,000 mls @ 75 mls/hr IV ASDIR [facility] Last Admin: 05/16/19 09:42 Dose: 75 mls/hr Lamotrigine 100 mg/ (Lamotrigine 25 mg) 125 mg PO BID [facility] Last Admin: 05/16/19 09:44 Dose: 125 mg Metoclopramide HCl (Reglan -) 10 mg PO QID [facility] Last Admin: 05/16/19 09:44 Dose: 10 mg Polyethylene Glycol (Miralax (For Daily Use) -) 17 gm PO DAILY [facility] Last Admin: 05/16/19 09:44 Dose: 17 gm Senna (Senna -) 2 tab PO HS [facility] Last Admin: 05/15/19 21:51 Dose: 2 tab Simethicone (Mylicon -) 80 mg PO DAILY [facility] Last Admin: 05/16/19 09:44 Dose: 80 mg Tizanidine HCl (Tizanidine Hcl) 4 mg PO BID [facility] Last Admin: 05/16/19 09:44 Dose: 4 mg Topiramate (Topamax -) 50 mg PO BID [facility] Last Admin: 05/16/19 09:44 Dose: 50 mg - Objective Vital Signs: Vital Signs Temperature 97.9 F 05/16/19 07:00 Pulse Rate 117 H 05/16/19 05:30 Respiratory Rate 18 05/15/19 18:00 Blood Pressure 124/65 05/16/19 05:30 O2 Sat by Pulse Oximetry (%) 94 L 05/15/19 21:00 Eyes: Yes: Conjunctiva Clear Cardiovascular: Yes: Regular Rate and Rhythm, S1, S2 Respiratory: Yes: Diminished Gastrointestinal: Yes: Normal Bowel Sounds, Soft. No: Tenderness Edema: No Labs: CBC, BMP 05/16/19 05:46 05/16/19 05:46 Assessment/Plan FEVER PNEUMONIA MR CYCLIC NEUTROPENIA CONTINUE EMPIRIC ZOSYN/VANCOMYCIN
--- NOTE | 2019-05-16 14:13 | PN ---
Teaching Attending Note Name of Resident: Ander Cobos ATTENDING PHYSICIAN STATEMENT I saw and evaluated the patient. I reviewed the resident's note and discussed the case with the resident. I agree with the resident's findings and plan as documented. SUBJECTIVE: Non-verbal, unable to participate in medical interview. OBJECTIVE: Still Febrile, Tmax 102, Hemodynamically Stable. More awake. Non- verbal. Appears comfortable. Refusing feeds apparently. Last Vital Signs Temp Pulse Resp BP Pulse Ox 97.9 F 117 H 18 124/65 94 L 05/16/19 07:00 05/16/19 05:30 05/15/19 18:00 05/16/19 05:30 05/15/19 21:00 Heart - S1, S2, SR Lungs - good air entry bilaterally abdomen - distended, soft, bowel sounds normal. Extremities - contractures, no edema. Laboratory Results - last 24 hr 05/16/19 05/16/19 05/16/19 05:46 05:46 11:45 WBC 4.9 RBC 4.28 Hgb 12.0 Hct 35.3 L MCV 82.4 MCH 28.1 MCHC 34.1 RDW 14.3 Plt Count 178 MPV 7.7 Sodium 141 Potassium 3.4 L Chloride 107 Carbon Dioxide 24 Anion Gap 10 BUN 5.7 L Creatinine 0.6 Est GFR (CKD-EPI)AfAm 156.37 Est GFR (CKD-EPI)NonAf 134.92 Random Glucose 138 H Calcium 7.9 L Phosphorus 2.8 Magnesium 1.7 L Stool Occult Blood Positive Current Medications Generic Name Dose Route Start Last Admin Trade Name Freq PRN Reason Stop Dose Admin Acetaminophen 650 mg 05/15/19 12:10 05/16/19 03:35 Tylenol Oral Solution - PO 650 mg Q6H PRN Administration PAIN OR FEVER Clobazam 5 mg 05/15/19 07:00 05/16/19 06:38 Onfi - PO 5 mg AM [facility] Administration Clobazam 10 mg 05/14/19 22:00 05/15/19 21:51 Onfi - PO 10 mg HS [facility] Administration Diazepam 1 mg 05/14/19 14:00 05/16/19 06:38 Valium - PO 1 mg TID [facility] Administration Fluticasone Propionate 2 spray 05/14/19 12:45 05/16/19 09:43 Flonase - NS Not Given DAILY [facility] Fluticasone Propionate 1 spray 05/15/19 10:00 05/16/19 09:43 Flonase - NS 1 spray DAILY [facility] Administration Piperacillin Sod/Tazobactam 50 mls @ 100 mls/hr 05/12/19 18:00 05/16/19 09:44 Sod 3.375 gm/ Dextrose IVPB 100 mls/hr Q8H-IV [facility] Administration Protocol Vancomycin HCl 750 mg/ 250 mls @ 250 mls/hr 05/14/19 15:15 05/15/19 14:16 Dextrose IVPB 250 mls/hr Q24H [facility] Administration Protocol Dextrose/Sodium Chloride 1,000 mls @ 75 mls/hr 05/15/19 10:00 05/16/19 09:42 D5-1/2ns - IV 75 mls/hr ASDIR [facility] Administration Lamotrigine 100 mg/ 125 mg 05/14/19 22:00 05/16/19 09:44 Lamotrigine 25 mg PO 125 mg BID [facility] Administration Metoclopramide HCl 10 mg 05/14/19 14:00 05/16/19 09:44 Reglan - PO 10 mg QID [facility] Administration Polyethylene Glycol 17 gm 05/13/19 19:45 05/16/19 09:44 Miralax (For Daily Use) - PO 17 gm DAILY [facility] Administration Senna 2 tab 05/14/19 22:00 05/15/19 21:51 Senna - PO 2 tab HS [facility] Administration Simethicone 80 mg 05/15/19 10:00 05/16/19 09:44 Mylicon - PO 80 mg DAILY [facility] Administration Tizanidine HCl 4 mg 05/14/19 22:00 05/16/19 09:44 Tizanidine Hcl PO 4 mg BID [facility] Administration Topiramate 50 mg 05/14/19 22:00 05/16/19 09:44 Topamax - PO 50 mg BID [facility] Administration Home Medications Medication Instructions Recorded Acetaminophen [Tylenol] 650 mg PO Q4H PRN 02/09/19 Diazepam 1 mg PO TID 02/09/19 FA/Mv,Ca,Iron,Min/Lycopene/Lut 1 each PO HS 02/09/19 [Centravites Tablet] Lamotrigine [LaMICtal -] 125 mg PO BID 02/09/19 Loratadine [Claritin -] 10 mg PO HS 02/09/19 Magnesium Hydrox 2400MG/30Ml [Milk 35 ml PO BID 02/09/19 of Magnesia -] Tizanidine HCl [Zanaflex (Nf) -] 4 mg PO BID 02/09/19 Bisacodyl Suppository [Dulcolax 10 mg SD PRN PRN 05/05/19 Suppository -] Cholecalciferol (Vitamin D3) 400 iu PO BID 05/05/19 [Vitamin D3] Fluticasone Prop 0.05% Nasal 1 - 2 spray NS DAILY 05/05/19 [Flonase -] Simethicone 80 mg PO PRN 05/05/19 Clobazam [Onfi -] 5 mg PO AM 05/11/19 Metoclopramide HCl [Reglan -] 10 mg PO QID 05/11/19 Sodium Phosphate,[place]-Dibasic 133 ml RC ASDIR PRN 05/11/19 [Fleet Enema] Topiramate 50 mg PO BID 05/11/19 Wheat Dextrin/Calcium Carb [Cvs 1 each PO DAILY 05/11/19 Easy Fiber Chewable Tablet] Bisacodyl 10 mg PO DAILY 05/12/19 Clobazam [Onfi -] 10 mg PO HS 05/12/19 Diazepam 1 mg PO TID 05/12/19 Diazepam [Diastat Acudial] 1 each RC PRN 05/12/19 Lactulose 30 ml PO HS 05/12/19 Lamotrigine [Lamotrigine ER] 125 mg PO BID 05/12/19 Nystatin Powder [Nystop Topical 30 gm TP ASDIR 05/12/19 Powder -] Olopatadine HCl 2.5 ml OU BID PRN 05/12/19 Sennosides [Senna] 3 tab PO HS 05/12/19 Sodium Chloride [[place] Saline] 2 sprays NS DAILY 05/12/19 Sodium Chloride [[place] Saline] 2 sprays NS PRN 05/12/19 ASSESSMENT/PLAN: 28 year old male resident at [facility] [place] with PMHx of severe MR, seizure disorder, functional quadriplegia, [place] syndrome, s/p TOE CLOSING MACHINE TENDER shunt, brought in for abdominal distention/vomiting, which is recurrent, found to have multifocal pneumonia, developed fever and neutropenia in ED. CT Chest/Abdomen/Pelvis - distended bowels, GERARD/LLL/RLL infiltrates. 1. Sepsis secondary to Multifocal Pneumonia, likely due to Aspiration Neutropenia possibly due to marrow suppression due to sepsis vs cyclic benign neutropenia - neutropenia resolved. Still febrile. Blood Cx negative Resume on diet as recommended by ASSISTANT ACCOUNTING MANAGER - Chopped with thin liquids - but poor appetite. Continue IV Fluids On IV Zosyn, Vanco, Azithromycin. Urine Legionella negative. Further Abx titration by ID. 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 Recent admission for same. Seen by surgery who recommended Senna. Resumed on bowel regimen and moving bowels. 3. Hypokalemia - repleted. 4. AUSTYN sec to Sepsis - improved with IV hydration. 5. FOBT pos stool. No melena/hematochezia. No Anemia. GI evaluated - not for endoscopy at this time. 6. Seizure Disorder - resumed on Diazepam, Lamotrigine, Clobazam, Topiramate. DVT Px - Heparin held due to FOBT positive stool. SCDs.
--- NOTE | 2019-05-16 14:42 | PN ---
Physical Exam: SUBJECTIVE: Patient seen and examined. Sleeping comfortably in bed. No stool on bed. OBJECTIVE: Vital Signs Period Temp Pulse Resp BP Sys/Vigil Pulse Ox Last 24 Hr 97.9 F-102.0 F 59-117 18-22 102-130/57-82 94 GENERAL: nonverbal, NAD HEAD: Normal with no signs of trauma. No temporal wasting EYES: sclera anicteric, conjunctiva clear and w/o pallor ENT: Ears normal, nares patent, moist mucus membranes NECK: Trachea midline, full range of motion, supple. LUNGS: Breath sounds equal, b/l ronchi HEART: tachycardia, S1, S2 without murmur, rub or gallop. ABDOMEN: distended, tympanic to percussion, nonTTP [id number], no guarding or rebound, BS present. EXTREMITIES: atrophied and thin NEUROLOGICAL: nonverbal, soft grunts SKIN: Warm, dry, normal turgor, no rashes or lesions noted Laboratory Results - last 24 hr 05/16/19 05/16/19 05/16/19 05:46 05:46 11:45 WBC 4.9 RBC 4.28 Hgb 12.0 Hct 35.3 L MCV 82.4 MCH 28.1 MCHC 34.1 RDW 14.3 Plt Count 178 MPV 7.7 Sodium 141 Potassium 3.4 L Chloride 107 Carbon Dioxide 24 Anion Gap 10 BUN 5.7 L Creatinine 0.6 Est GFR (CKD-EPI)AfAm 156.37 Est GFR (CKD-EPI)NonAf 134.92 Random Glucose 138 H Calcium 7.9 L Phosphorus 2.8 Magnesium 1.7 L Stool Occult Blood Positive Active Medications Generic Name Dose Route Start Last Admin Trade Name Freq PRN Reason Stop Dose Admin Acetaminophen 650 mg 05/15/19 12:10 05/16/19 03:35 Tylenol Oral Solution - PO 650 mg Q6H PRN Administration PAIN OR FEVER Clobazam 5 mg 05/15/19 07:00 05/16/19 06:38 Onfi - PO 5 mg AM [facility] Administration Clobazam 10 mg 05/14/19 22:00 05/15/19 21:51 Onfi - PO 10 mg HS [facility] Administration Diazepam 1 mg 05/14/19 14:00 05/16/19 06:38 Valium - PO 1 mg TID [facility] Administration Fluticasone Propionate 2 spray 05/14/19 12:45 05/16/19 09:43 Flonase - NS Not Given DAILY [facility] Fluticasone Propionate 1 spray 05/15/19 10:00 05/16/19 09:43 Flonase - NS 1 spray DAILY [facility] Administration Piperacillin Sod/Tazobactam 50 mls @ 100 mls/hr 05/12/19 18:00 05/16/19 09:44 Sod 3.375 gm/ Dextrose IVPB 100 mls/hr Q8H-IV [facility] Administration Protocol Vancomycin HCl 750 mg/ 250 mls @ 250 mls/hr 05/14/19 15:15 05/15/19 14:16 Dextrose IVPB 250 mls/hr Q24H [facility] Administration Protocol Dextrose/Sodium Chloride 1,000 mls @ 75 mls/hr 05/15/19 10:00 05/16/19 09:42 D5-1/2ns - IV 75 mls/hr ASDIR [facility] Administration Lamotrigine 100 mg/ 125 mg 05/14/19 22:00 05/16/19 09:44 Lamotrigine 25 mg PO 125 mg BID [facility] Administration Metoclopramide HCl 10 mg 05/14/19 14:00 05/16/19 09:44 Reglan - PO 10 mg QID [facility] Administration Polyethylene Glycol 17 gm 05/13/19 19:45 05/16/19 09:44 Miralax (For Daily Use) - PO 17 gm DAILY [facility] Administration Senna 2 tab 05/14/19 22:00 05/15/19 21:51 Senna - PO 2 tab HS [facility] Administration Simethicone 80 mg 05/15/19 10:00 05/16/19 09:44 Mylicon - PO 80 mg DAILY [facility] Administration Tizanidine HCl 4 mg 05/14/19 22:00 05/16/19 09:44 Tizanidine Hcl PO 4 mg BID [facility] Administration Topiramate 50 mg 05/14/19 22:00 05/16/19 09:44 Topamax - PO 50 mg BID [facility] Administration Vital Signs Temp 98.4 F 05/16/19 15:00 Pulse 88 05/16/19 15:00 Resp 18 05/16/19 15:00 BP 155/71 05/16/19 15:00 Pulse Ox 94 L 05/15/19 21:00 Intake & Output 05/15/19 05/16/19 05/16/19 23:59 11:59 23:59 Intake Total 1800 650 Balance 1800 650 Intake: IV 1200 600 D5-1/2Ns - 1,000 ml @ 75 500 mls/hr IV ASDIR [facility] Rx#: [id number] D5-Ns - 1,000 ml @ 100 700 600 mls/hr IV ASDIR [facility] Rx#: [id number] IVPB 600 50 Other: Voiding Method Incontinent Incontinent # Unmeasured Voids Void 3 4 Bowel Movement No No Yes # Bowel Movements 1 1 ASSESSMENT/PLAN: 28 y/o/m from [facility] with PMHx of severe MR, seizure disorder, functional quadriplegia, [place] syndrome, and constipation here for abdominal distention and vomiting. #Sepsis -Pneumonia - likely secondary to aspiration of vomit >CT Abd&pelvis - developing left basilar infiltrate >CXR(05/12/19): LLL consolidation, possible early R basilar infiltrate >CT chest(05/12/19): airspace disease/PNA in LLL, lesser extent in GERARD, RLL; no pneumothorax; no pleural effusion -Patient started on vanc/zosyn in the ED -Zosyn, vancomycin -CT chest, CXR ordered for further evaluation -WBC ~0.8; neutropenia precautions -Speech/Swallow eval for aspiration risk -- recommend deferment of PO trial, NPO for now -appreciate ID recs: --suspect multilobar aspiration pneumonia --agree with cultures --recieved vanco/zosyn --continue zosyn --add vancomycin --add zithromax -- dc as Legionella/Pneumoccocal are neg --fu urinary antigens as well- legionella/pneumococal --neg -fu BCX, UCX for 05/14/19 -- NGTD #FOBT positive -GI consulted -- no endoscopy at this time #AUSTYN -- resolving >Cr ~1.5 --> 0.8 after NS 4L -cw NS 1000 mls at 100mls/hr -Monitor BUN/Creatinine #Ileus - CT Abd&pelvis - little significant change in moderate to marked small bowel dilatation since 05/05/19. the amount of solid stool has decreased. There does remain a large amount of predominantly liquid stool within the sigmoid colon and rectum -NPO -restart senna once tolerating PO -Stool occult positive for blood. HGB/HCT at 15.4/47 -replete Mg, Phos, K as necessary #Hypokalemia -IV KCl 10meq x3 given in ED -Will monitor with labs #Lactic Acid elevation -lactic acid 2.1-->1.8 --> 2.2 -->0.8 -IVF #Seizure disorder -[facility] -Switched to Keppra 500mg IV BID as patient is NPO #FEN -mIVF: D5NS -S&S: Ensure, magic cup, ensure pudding -routine BMP monitoring #Prophylaxis - Heparin 5000mg TID #Disposition -full code -admitted to med/surg -dc: Gui pending resolution of above medical issues Visit type - Emergency Visit Emergency Visit: No - New Patient This patient is new to me today: No - Critical Care Critical Care patient: No ATTENDING PHYSICIAN STATEMENT I saw and evaluated the patient. I reviewed the resident's note and discussed the case with the resident. I agree with the resident's findings and plan as documented. SUBJECTIVE: OBJECTIVE: ASSESSMENT AND PLAN:
[2019-05-16] MEDS: VANCOMYCIN 750 MG in DEXTROSE 5%-WATER - 250 ML IVPB SCH (14:46)
[2019-05-16] MEDS: SENNOSIDES 8.6MG TABLET (FP) PO SCH (21:27)
[2019-05-17] MEDS: PIPERACILLIN/TAZOB 3.375 GM 3.375 GM in DEXTROSE 5%-WATER - 50 ML IVPB SCH ×3 (01:42→17:46)
[2019-05-17] MEDS ORDERED: DEXTROSE 5%-WATER - 50 ML IVPB ONE ×3 (03:02→17:41)
[2019-05-17] MEDS ORDERED: PIPERACILLIN/TAZOBACTAM 3.375 GM VIAL IVPB ONE ×3 (03:02→17:41)
[2019-05-17] MEDS: cloBAZam 10 MG TABLET PO SCH ×2 (06:43→21:55)
[2019-05-17] MEDS: diazePAM 2 MG TABLET PO SCH ×3 (06:43→21:55)
[2019-05-17] MEDS: ACETAMINOPHEN 650 MG/20.3 ML ORAL SOLUTION (CUPS) PO PRN (06:46)
[2019-05-17 08:13] LABS: BASO % 0.5 % (0-2.0); EOS % 2.1 % (0-4.5); HEMATOCRIT 36.3 % (35.4-49); HEMOGLOBIN 12.1 GM/dL (11.7-16.9); MCH 27.7 pg (25.7-33.7); MCHC 33.4 g/dl (32.0-35.9); MEAN CELL VOLUME 82.8 fl (80-96); MEAN PLT VOLUME 7.6 fl (7.5-11.1); NEUT % 72.4 % (42.8-82.8); PLATELET COUNT 188 K/MM3 (134-434); RBC 4.38 M/mm3 (4.00-5.60); RDW 14.5 % (11.9-15.9); WHITE BLOOD COUNT 6.2 K/mm3 (4.0-10.0)
[2019-05-17 08:42] LABS: BLOOD UREA NITROGEN 3.9 mg/dL (7-18); CALCIUM 8.2 mg/dL (8.5-10.1); CREATININE 0.5 mg/dL (0.55-1.3); MAGNESIUM 1.9 mg/dL (1.8-2.4); PHOSPHOROUS 2.7 mg/dL (2.5-4.9); POTASSIUM 3.4 mmol/L (3.5-5.1)
[2019-05-17] MEDS: SIMETHICONE 80 MG TAB.CHEW (FP) PO SCH (09:37)
[2019-05-17] MEDS: METOCLOPRAMIDE HCL 10 MG TABLET (FP) PO SCH ×4 (09:37→21:55)
[2019-05-17] MEDS: TOPIRAMATE 25 MG TABLET (FP) PO SCH ×2 (09:37→21:55)
[2019-05-17] MEDS: LAMOTRIGINE 100 MG, LAMOTRIGINE 25 MG PO SCH ×2 (09:38→21:55)
[2019-05-17] MEDS: TIZANIDINE HCL 4 MG TABLET PO SCH ×2 (09:39→21:55)
[2019-05-17] MEDS: FLUTICASONE PROP 0.05% 16 GM NASAL SPRAY NS SCH ×2 (09:40→09:41)
[2019-05-17 09:41] LABS: ANISOCYTOSIS 1+; MACROCYTOSIS 0; OVALOCYTE 1+; PLATELET ESTIMATE NORMAL; TEAR DROP CELLS 1+
[2019-05-17] MEDS: KCL 10 MEQ IVPB 10 MEQ/100 ML INFUS.BAG IVPB SCH ×3 (10:26→12:29)
[2019-05-17] MEDS: POLYETHYLENE GLYCOL 3350 119 GM BTL PO SCH (10:53)
[2019-05-17] MEDS: DEXTROSE 5%-0.45% SALINE 1,000 ML IV SCH (11:29)
--- NOTE | 2019-05-17 13:35 | PN ---
Progress Note, Physician History of Present Illness: AWAKE, NON VERBAL BREATHING NON-LABORED REMAINS FEBRILE - Current Medication List Current Medications: Active Medications Acetaminophen (Tylenol Oral Solution -) 650 mg PO Q6H PRN PRN Reason: PAIN OR FEVER Last Admin: 05/17/19 06:46 Dose: 650 mg Clobazam (Onfi -) 5 mg PO AM [facility] Last Admin: 05/17/19 06:43 Dose: 5 mg Clobazam (Onfi -) 10 mg PO HS [facility] Last Admin: 05/16/19 21:27 Dose: 10 mg Diazepam (Valium -) 1 mg PO TID [facility] Last Admin: 05/17/19 06:43 Dose: 1 mg Fluticasone Propionate (Flonase -) 2 spray NS DAILY [facility] Last Admin: 05/17/19 09:41 Dose: Not Given Fluticasone Propionate (Flonase -) 1 spray NS DAILY [facility] Last Admin: 05/17/19 09:40 Dose: 1 spray Piperacillin Sod/Tazobactam (Sod 3.375 gm/ Dextrose) 50 mls @ 100 mls/hr IVPB Q8H-IV [facility]; Protocol Last Admin: 05/17/19 09:39 Dose: 100 mls/hr Vancomycin HCl 750 mg/ (Dextrose) 250 mls @ 250 mls/hr IVPB Q24H [facility]; Protocol Last Admin: 05/16/19 14:46 Dose: 250 mls/hr Dextrose/Sodium Chloride (D5-1/2ns -) 1,000 mls @ 75 mls/hr IV ASDIR [facility] Last Admin: 05/17/19 11:29 Dose: Not Given Lamotrigine 100 mg/ (Lamotrigine 25 mg) 125 mg PO BID [facility] Last Admin: 05/17/19 09:38 Dose: 125 mg Metoclopramide HCl (Reglan -) 10 mg PO QID [facility] Last Admin: 05/17/19 09:37 Dose: 10 mg Polyethylene Glycol (Miralax (For Daily Use) -) 17 gm PO DAILY [facility] Last Admin: 05/17/19 10:53 Dose: 17 gm Senna (Senna -) 2 tab PO HS [facility] Last Admin: 05/16/19 21:27 Dose: 2 tab Simethicone (Mylicon -) 80 mg PO DAILY [facility] Last Admin: 05/17/19 09:37 Dose: 80 mg Tizanidine HCl (Tizanidine Hcl) 4 mg PO BID [facility] Last Admin: 05/17/19 09:39 Dose: 4 mg Topiramate (Topamax -) 50 mg PO BID [facility] Last Admin: 05/17/19 09:37 Dose: 50 mg - Objective Vital Signs: Vital Signs Temperature 98.1 F 05/17/19 10:00 Pulse Rate 82 05/17/19 10:00 Respiratory Rate 20 05/17/19 10:00 Blood Pressure 104/61 05/17/19 10:00 O2 Sat by Pulse Oximetry (%) 93 L 05/16/19 09:00 Constitutional: Yes: No Distress Cardiovascular: Yes: Regular Rate and Rhythm, S1, S2 Respiratory: Yes: Diminished Gastrointestinal: Yes: Normal Bowel Sounds, Soft. No: Tenderness Labs: CBC, BMP 05/17/19 06:15 05/17/19 06:15 Assessment/Plan FEVER PNEUMONIA MR CYCLIC NEUTROPENIA CONTINUE EMPIRIC ZOSYN/VANCOMYCIN
[2019-05-17] MEDS: VANCOMYCIN 750 MG in DEXTROSE 5%-WATER - 250 ML IVPB SCH (14:43)
--- NOTE | 2019-05-17 16:32 | PN ---
Progress Note (short form) - Note Progress Note: SUBJECTIVE: Non-verbal, unable to participate in medical interview. OBJECTIVE: Still Febrile, Tmax 101.6, Hemodynamically Stable. More awake. Non- verbal. Appears comfortable. Refusing feeds apparently. Last Vital Signs Temp Pulse Resp BP Pulse Ox 98.2 F 62 18 140/79 95 05/17/19 14:00 05/17/19 14:00 05/17/19 14:00 05/17/19 14:00 05/17/19 09:00 Heart - S1, S2, SR Lungs - good air entry bilaterally abdomen - distended, soft, bowel sounds normal. Extremities - contractures, no edema. Laboratory Results - last 24 hr 05/17/19 05/17/19 06:15 06:15 WBC 6.2 RBC 4.38 Hgb 12.1 Hct 36.3 MCV 82.8 MCH 27.7 MCHC 33.4 RDW 14.5 Plt Count 188 MPV 7.6 Absolute Neuts (auto) 4.5 Neutrophils % 72.4 Neutrophils % (Manual) 66.3 Band Neutrophils % 12.9 Lymphocytes % 14.0 D Lymphocytes % (Manual) 11.9 Monocytes % 11.0 H Monocytes % (Manual) 4 Eosinophils % 2.1 Eosinophils % (Manual) 0.0 D Basophils % 0.5 Basophils % (Manual) 0.0 Myelocytes % (Man) 0 Promyelocytes % (Man) 0 Blast Cells % (Manual) 0 Nucleated RBC % 0 Metamyelocytes 1 D Hypochromia 0 Platelet Estimate Normal Platelet Comment Present Polychromasia 1+ Poikilocytosis 1+ Anisocytosis 1+ Microcytosis 1+ Macrocytosis 0 Tear Drop Cells 1+ Ovalocytes 1+ Paxton Cells 1+ Acanthocytes (Spur) 1+ Sodium 138 Potassium 3.4 L Chloride 107 Carbon Dioxide 22 Anion Gap 9 BUN 3.9 L Creatinine 0.5 L Est GFR (CKD-EPI)AfAm 168.54 Est GFR (CKD-EPI)NonAf 145.42 Random Glucose 108 H Calcium 8.2 L Phosphorus 2.7 Magnesium 1.9 Current Medications Generic Name Dose Route Start Last Admin Trade Name Freq PRN Reason Stop Dose Admin Acetaminophen 650 mg 05/15/19 12:10 05/17/19 06:46 Tylenol Oral Solution - PO 650 mg Q6H PRN Administration PAIN OR FEVER Clobazam 5 mg 05/15/19 07:00 05/17/19 06:43 Onfi - PO 5 mg AM LINETTE Administration Clobazam 10 mg 05/14/19 22:00 05/16/19 21:27 Onfi - PO 10 mg HS LINETTE Administration Diazepam 1 mg 05/14/19 14:00 05/17/19 13:44 Valium - PO 1 mg TID LINETTE Administration Fluticasone Propionate 2 spray 05/14/19 12:45 05/17/19 09:41 Flonase - NS Not Given DAILY LINETTE Fluticasone Propionate 1 spray 05/15/19 10:00 05/17/19 09:40 Flonase - NS 1 spray DAILY LINETTE Administration Piperacillin Sod/Tazobactam 50 mls @ 100 mls/hr 05/12/19 18:00 05/17/19 09:39 Sod 3.375 gm/ Dextrose IVPB 100 mls/hr Q8H-IV LINETTE Administration Protocol Vancomycin HCl 750 mg/ 250 mls @ 250 mls/hr 05/14/19 15:15 05/17/19 14:43 Dextrose IVPB 250 mls/hr Q24H LINETTE Administration Protocol Dextrose/Sodium Chloride 1,000 mls @ 75 mls/hr 05/15/19 10:00 05/17/19 11:29 D5-1/2ns - IV Not Given ASDIR LINETTE Lamotrigine 100 mg/ 125 mg 05/14/19 22:00 05/17/19 09:38 Lamotrigine 25 mg PO 125 mg BID LINETTE Administration Metoclopramide HCl 10 mg 05/14/19 14:00 05/17/19 13:44 Reglan - PO 10 mg QID LINETTE Administration Polyethylene Glycol 17 gm 05/13/19 19:45 05/17/19 10:53 Miralax (For Daily Use) - PO 17 gm DAILY LINETTE Administration Senna 2 tab 05/14/19 22:00 05/16/19 21:27 Senna - PO 2 tab HS LINETTE Administration Simethicone 80 mg 05/15/19 10:00 05/17/19 09:37 Mylicon - PO 80 mg DAILY LINETTE Administration Tizanidine HCl 4 mg 05/14/19 22:00 05/17/19 09:39 Tizanidine Hcl PO 4 mg BID LINETTE Administration Topiramate 50 mg 05/14/19 22:00 05/17/19 09:37 Topamax - PO 50 mg BID LINETTE Administration ASSESSMENT/PLAN: 28 year old male resident at [facility] with PMHx of severe MR, seizure disorder, functional quadriplegia, Huan syndrome, s/p DIGITAL FORENSICS INVESTIGATOR shunt, brought in for abdominal distention/vomiting, which is recurrent, found to have multifocal pneumonia, developed fever and neutropenia in ED. CT Chest/Abdomen/Pelvis - distended bowels, GERARD/LLL/RLL infiltrates. 1. Sepsis secondary to Multifocal Pneumonia, likely due to Aspiration Neutropenia possibly due to marrow suppression due to sepsis/cyclic benign neutropenia - neutropenia resolved. Still febrile - Tmax overnight 101.6 Blood Cx negative Resumed on diet as recommended by BROADCAST ENGINEER - Chopped with thin liquids - but poor appetite. Continue IV Fluids On IV Zosyn, Vanco. Urine Legionella negative - Azithromycin discontinued. Further Abx titration by ID. 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 Recent admission for same. Seen by surgery who recommended Senna. Resumed on bowel regimen and moving bowels. 3. Hypokalemia - recurrent, will replete. 4. AUSTYN sec to Sepsis - improved with IV hydration. 5. FOBT pos stool. No melena/hematochezia. No Anemia. GI evaluated - not for endoscopy at this time. 6. Seizure Disorder - resumed on Diazepam, Lamotrigine, Clobazam, Topiramate. DVT Px - Heparin held due to FOBT positive stool. SCDs. Visit type - Emergency Visit Emergency Visit: Yes ED Registration Date: 05/11/19 Care time: The patient presented to the Emergency Department on the above date and was hospitalized for further evaluation of their emergent condition. - New Patient This patient is new to me today: No - Critical Care Critical Care patient: No - Discharge Referral Referred to [facility] Med [facility].C.: No
[2019-05-17] MEDS: POTASSIUM CHLORIDE ORAL LIQUID 20 MEQ/15 ML PO SCH ×2 (17:50→21:41)
[2019-05-17] MEDS ORDERED: PT OWN MED DRAWER 7, Y5N ONE ×2 (18:03→21:12)
[2019-05-17] MEDS: SENNOSIDES 8.6MG TABLET (FP) PO SCH (21:55)
[2019-05-18] MEDS ORDERED: PIPERACILLIN/TAZOBACTAM 3.375 GM VIAL IVPB ONE ×3 (00:34→17:44)
[2019-05-18] MEDS ORDERED: DEXTROSE 5%-WATER - 50 ML IVPB ONE ×3 (00:34→17:44)
[2019-05-18] MEDS: PIPERACILLIN/TAZOB 3.375 GM 3.375 GM in DEXTROSE 5%-WATER - 50 ML IVPB SCH ×3 (01:11→18:05)
[2019-05-18] MEDS: diazePAM 2 MG TABLET PO SCH ×3 (05:38→21:59)
[2019-05-18] MEDS: cloBAZam 10 MG TABLET PO SCH ×2 (06:22→22:00)
[2019-05-18] MEDS ORDERED: PT OWN MED DRAWER 7, Y5N ONE ×2 (09:32→22:01)
[2019-05-18] MEDS: TOPIRAMATE 25 MG TABLET (FP) PO SCH ×2 (09:41→22:00)
[2019-05-18] MEDS: SIMETHICONE 80 MG TAB.CHEW (FP) PO SCH (09:41)
[2019-05-18] MEDS: METOCLOPRAMIDE HCL 10 MG TABLET (FP) PO SCH ×4 (09:41→22:00)
[2019-05-18] MEDS: TIZANIDINE HCL 4 MG TABLET PO SCH ×2 (09:42→22:17)
[2019-05-18] MEDS: LAMOTRIGINE 100 MG, LAMOTRIGINE 25 MG PO SCH ×2 (09:42→22:17)
[2019-05-18] MEDS: FLUTICASONE PROP 0.05% 16 GM NASAL SPRAY NS SCH ×2 (09:42→09:43)
[2019-05-18] MEDS: POLYETHYLENE GLYCOL 3350 119 GM BTL PO SCH (09:44)
[2019-05-18 10:52] LABS: BASO % 0.6 % (0-2.0); EOS % 1.9 % (0-4.5); HEMATOCRIT 40.1 % (35.4-49); HEMOGLOBIN 13.4 GM/dL (11.7-16.9); LYMPH % 18.1 % (8-40); MCH 27.7 pg (25.7-33.7); MCHC 33.4 g/dl (32.0-35.9); MEAN PLT VOLUME 7.7 fl (7.5-11.1); MONO % 6.5 % (3.8-10.2); NEUT % 72.9 % (42.8-82.8); PLATELET COUNT 230 K/MM3 (134-434); RBC 4.83 M/mm3 (4.00-5.60); RDW 14.7 % (11.9-15.9)
--- NOTE | 2019-05-18 10:56 | PN ---
Progress Note (short form) - Note Progress Note: NAD no fevers today Vital Signs Period Temp Pulse Resp BP Sys/Vigil Pulse Ox Last 24 Hr 97.9 F-98.5 F 62-117 18-20 93-140/48-79 cor-rrr lungs decreased bs at bases abd soft,nt ext no edema Labs pending Microbiology 05/14/19 18:30 Blood - Peripheral Venous Blood Culture - Preliminary NO GROWTH OBTAINED AFTER 72 HOURS, INCUBATION TO CONTINUE FOR 2 DAYS. 05/15/19 17:30 Urine For Antigen Detection Legionella Antigen - Final 05/15/19 17:30 Urine For Antigen Detection Streptococcus pneumoniae Antigen (M - Final 05/11/19 18:00 Blood - Peripheral Venous Blood Culture - Final NO GROWTH AFTER 5 DAYS INCUBATION 05/11/19 18:10 Blood - Peripheral Venous Blood Culture - Final NO GROWTH AFTER 5 DAYS INCUBATION 05/14/19 15:06 Nares - Left Nares MRSA Screen - Final NO MRSA ISOLATED 05/14/19 15:06 Nares - Right Nares MRSA Screen - Final NO MRSA ISOLATED 05/14/19 15:44 Urine - Urine Clean Catch Urine Culture - Final NO GROWTH OBTAINED 05/11/19 17:45 Urine - Urine Clean Catch Urine Culture - Final NO GROWTH OBTAINED Current Medications Acetaminophen (Tylenol Oral Solution -) 650 mg PO Q6H PRN PRN Reason: PAIN OR FEVER Last Admin: 05/17/19 06:46 Dose: 650 mg Clobazam (Onfi -) 5 mg PO AM LINETTE Last Admin: 05/18/19 06:22 Dose: 5 mg Clobazam (Onfi -) 10 mg PO HS LINETTE Last Admin: 05/17/19 21:55 Dose: 10 mg Diazepam (Valium -) 1 mg PO TID LINETTE Last Admin: 05/18/19 05:38 Dose: 1 mg Fluticasone Propionate (Flonase -) 2 spray NS DAILY LINETTE Last Admin: 05/18/19 09:42 Dose: Not Given Fluticasone Propionate (Flonase -) 1 spray NS DAILY LINETTE Last Admin: 05/18/19 09:43 Dose: 1 spray Piperacillin Sod/Tazobactam (Sod 3.375 gm/ Dextrose) 50 mls @ 100 mls/hr IVPB Q8H-IV LINETTE; Protocol Last Admin: 05/18/19 09:41 Dose: 100 mls/hr Vancomycin HCl 750 mg/ (Dextrose) 250 mls @ 250 mls/hr IVPB Q24H [facility]; Protocol Last Admin: 05/17/19 14:43 Dose: 250 mls/hr Dextrose/Sodium Chloride (D5-1/2ns -) 1,000 mls @ 75 mls/hr IV ASDIR [facility] Last Admin: 05/17/19 11:29 Dose: Not Given Lamotrigine 100 mg/ (Lamotrigine 25 mg) 125 mg PO BID [facility] Last Admin: 05/18/19 09:42 Dose: 125 mg Metoclopramide HCl (Reglan -) 10 mg PO QID [facility] Last Admin: 05/18/19 09:41 Dose: 10 mg Polyethylene Glycol (Miralax (For Daily Use) -) 17 gm PO DAILY [facility] Last Admin: 05/18/19 09:44 Dose: 17 gm Senna (Senna -) 2 tab PO HS [facility] Last Admin: 05/17/19 21:55 Dose: 2 tab Simethicone (Mylicon -) 80 mg PO DAILY [facility] Last Admin: 05/18/19 09:41 Dose: 80 mg Tizanidine HCl (Tizanidine Hcl) 4 mg PO BID [facility] Last Admin: 05/18/19 09:42 Dose: 4 mg Topiramate (Topamax -) 50 mg PO BID [facility] Last Admin: 05/18/19 09:41 Dose: 50 mg a/p fevers resolved continue vanco/zosyn for aspiraiton pneumonia vanco trough today 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 epilepsy benign cyclic neutropenia Problem List - Problems (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 - OTHER SPECIFIED FUNCTIONAL INTESTINAL DISORDERS (2) PNA (pneumonia) Code(s): J18.9 - PNEUMONIA, UNSPECIFIED ORGANISM Qualifiers: Pneumonia type: due to unspecified organism Laterality: left Lung location: lower lobe of lung Qualified Code(s): J18.1 - Lobar pneumonia, unspecified organism (3) Congenital quadriplegia Code(s): G80.8 - OTHER CEREBRAL PALSY (4) Profound mental handicap Code(s): F73 - PROFOUND INTELLECTUAL DISABILITIES (5) S/P ventriculoperitoneal shunt Code(s): Z98.2 - PRESENCE OF CEREBROSPINAL FLUID DRAINAGE DEVICE (6) Epilepsy without status epilepticus, not intractable Code(s): G40.909 - EPILEPSY, UNSP, NOT INTRACTABLE, WITHOUT STATUS EPILEPTICUS Qualifiers: Epilepsy type: unspecified Qualified Code(s): G40.909 - Epilepsy, unspecified, not intractable, without status epilepticus
[2019-05-18 11:10] LABS: BLOOD UREA NITROGEN 3.7 mg/dL (7-18); CALCIUM 8.8 mg/dL (8.5-10.1); CREATININE 0.6 mg/dL (0.55-1.3); MAGNESIUM 1.8 mg/dL (1.8-2.4); POTASSIUM 3.8 mmol/L (3.5-5.1)
--- NOTE | 2019-05-18 12:21 | PN ---
Progress Note, JAILER/TRAINING OFFICER - Note Progress Note: Pt asleep in bed during this visit. JAILER/TRAINING OFFICER spoke with patient's mom during this session. Chart review indicated that pt has consumes than 25% of meals since . JAILER/TRAINING OFFICER discussed with parent that he could still be constipated which could be a contributing factor for reduced oral intake. Also parent suggested that pt does not like the food here. Current diet regular solids with thin liquids. Recommendations: Consider additional GI consultation. Continue current diet as tolerated. Observe stand aspiration precautions. Provide oral care as needed. Results given to charge histotechnologist and PCP via chart. JAILER/TRAINING OFFICER to follow up.
--- NOTE | 2019-05-18 15:21 | PN ---
Teaching Attending Note Name of Resident: Ander Cobos ATTENDING PHYSICIAN STATEMENT I saw and evaluated the patient. I reviewed the resident's note and discussed the case with the resident. I agree with the resident's findings and plan as documented. SUBJECTIVE: Non-verbal, unable to participate in medical interview. OBJECTIVE: Fever resolved, Hemodynamically Stable. More awake. Non-verbal. Appears comfortable. Not eating a significant proportion of feeds apparently. Last Vital Signs Temp Pulse Resp BP Pulse Ox 99 F 96 H 18 134/61 94 L 05/18/19 09:00 05/18/19 09:00 05/18/19 09:00 05/18/19 09:00 05/18/19 09:00 Heart - S1, S2, SR Lungs - clear, mildly reduced at bases bibasally. abdomen - distended, soft, bowel sounds normal. Extremities - contractures, no edema. Laboratory Results - last 24 hr 05/18/19 05/18/19 10:00 10:00 WBC 5.0 RBC 4.83 Hgb 13.4 Hct 40.1 MCV 83.0 MCH 27.7 MCHC 33.4 RDW 14.7 Plt Count 230 D MPV 7.7 Absolute Neuts (auto) 3.6 Neutrophils % 72.9 Lymphocytes % 18.1 D Monocytes % 6.5 Eosinophils % 1.9 Basophils % 0.6 Nucleated RBC % 0 Sodium 139 Potassium 3.8 Chloride 108 H Carbon Dioxide 23 Anion Gap 8 BUN 3.7 L Creatinine 0.6 Est GFR (CKD-EPI)AfAm 156.37 Est GFR (CKD-EPI)NonAf 134.92 Random Glucose 112 H Calcium 8.8 Phosphorus 3.0 Magnesium 1.8 Current Medications Generic Name Dose Route Start Last Admin Trade Name Freq PRN Reason Stop Dose Admin Acetaminophen 650 mg 05/15/19 12:10 05/17/19 06:46 Tylenol Oral Solution - PO 650 mg Q6H PRN Administration PAIN OR FEVER Clobazam 5 mg 05/15/19 07:00 05/18/19 06:22 Onfi - PO 5 mg AM LINETTE Administration Clobazam 10 mg 05/14/19 22:00 05/17/19 21:55 Onfi - PO 10 mg HS LINETTE Administration Diazepam 1 mg 05/14/19 14:00 05/18/19 14:26 Valium - PO 1 mg TID LINETTE Administration Fluticasone Propionate 2 spray 05/14/19 12:45 05/18/19 09:42 Flonase - NS Not Given DAILY LINETTE Fluticasone Propionate 1 spray 05/15/19 10:00 05/18/19 09:43 Flonase - NS 1 spray DAILY LINETTE Administration Piperacillin Sod/Tazobactam 50 mls @ 100 mls/hr 05/12/19 18:00 05/18/19 09:41 Sod 3.375 gm/ Dextrose IVPB 100 mls/hr Q8H-IV LINETTE Administration Protocol Vancomycin HCl 750 mg/ 250 mls @ 250 mls/hr 05/14/19 15:15 05/17/19 14:43 Dextrose IVPB 250 mls/hr Q24H LINETTE Administration Protocol Dextrose/Sodium Chloride 1,000 mls @ 75 mls/hr 05/15/19 10:00 05/17/19 11:29 D5-1/2ns - IV Not Given ASDIR LINETTE Lamotrigine 100 mg/ 125 mg 05/14/19 22:00 05/18/19 09:42 Lamotrigine 25 mg PO 125 mg BID LINETTE Administration Metoclopramide HCl 10 mg 05/14/19 14:00 05/18/19 14:26 Reglan - PO 10 mg QID LINETTE Administration Polyethylene Glycol 17 gm 05/13/19 19:45 05/18/19 09:44 Miralax (For Daily Use) - PO 17 gm DAILY LINETTE Administration Senna 2 tab 05/14/19 22:00 05/17/19 21:55 Senna - PO 2 tab HS LINETTE Administration Simethicone 80 mg 05/15/19 10:00 05/18/19 09:41 Mylicon - PO 80 mg DAILY LINETTE Administration Tizanidine HCl 4 mg 05/14/19 22:00 05/18/19 09:42 Tizanidine Hcl PO 4 mg BID LINETTE Administration Topiramate 50 mg 05/14/19 22:00 05/18/19 09:41 Topamax - PO 50 mg BID LINETTE Administration Home Medications Medication Instructions Recorded Acetaminophen [Tylenol] 650 mg PO Q4H PRN 02/09/19 Diazepam 1 mg PO TID 02/09/19 FA/Mv,Ca,Iron,Min/Lycopene/Lut 1 each PO HS 02/09/19 [Centravites Tablet] Lamotrigine [LaMICtal -] 125 mg PO BID 02/09/19 Loratadine [Claritin -] 10 mg PO HS 02/09/19 Magnesium Hydrox 2400MG/30Ml [Milk 35 ml PO BID 02/09/19 of Magnesia -] Tizanidine HCl [Zanaflex (Nf) -] 4 mg PO BID 02/09/19 Bisacodyl Suppository [Dulcolax 10 mg IA PRN PRN 05/05/19 Suppository -] Cholecalciferol (Vitamin D3) 400 iu PO BID 05/05/19 [Vitamin D3] Fluticasone Prop 0.05% Nasal 1 - 2 spray NS DAILY 05/05/19 [Flonase -] Simethicone 80 mg PO PRN 05/05/19 Clobazam [Onfi -] 5 mg PO AM 05/11/19 Metoclopramide HCl [Reglan -] 10 mg PO QID 05/11/19 Sodium Phosphate,[place]-Dibasic 133 ml RC ASDIR PRN 05/11/19 [Fleet Enema] Topiramate 50 mg PO BID 05/11/19 Wheat Dextrin/Calcium Carb [Cvs 1 each PO DAILY 05/11/19 Easy Fiber Chewable Tablet] Bisacodyl 10 mg PO DAILY 05/12/19 Clobazam [Onfi -] 10 mg PO HS 05/12/19 Diazepam 1 mg PO TID 05/12/19 Diazepam [Diastat Acudial] 1 each RC PRN 05/12/19 Lactulose 30 ml PO HS 05/12/19 Lamotrigine [Lamotrigine ER] 125 mg PO BID 05/12/19 Nystatin Powder [Nystop Topical 30 gm TP ASDIR 05/12/19 Powder -] Olopatadine HCl 2.5 ml OU BID PRN 05/12/19 Sennosides [Senna] 3 tab PO HS 05/12/19 Sodium Chloride [[place] Saline] 2 sprays NS DAILY 05/12/19 Sodium Chloride [[place] Saline] 2 sprays NS PRN 05/12/19 ASSESSMENT/PLAN: 28 year old male resident at [facility] with PMHx of severe MR, seizure disorder, functional quadriplegia, [place] syndrome, s/p MATHEMATICS IMPROVEMENT TEACHER shunt, brought in for abdominal distention/vomiting, which is recurrent, found to have multifocal pneumonia, developed fever and neutropenia in ED. CT Chest/Abdomen/Pelvis - distended bowels, GERARD/LLL/RLL infiltrates. 1. Sepsis secondary to Multifocal Pneumonia, likely due to Aspiration Neutropenia possibly due to marrow suppression due to sepsis vs cyclic benign neutropenia - neutropenia resolved. Fevers resolved. Blood Cx negative Resumed on diet as recommended by WINDSHIELD INSTALLER - Chopped with thin liquids - but poor appetite. Continue IV Fluids On IV Zosyn, Vanco. Urine Legionella negative - Azithromycin discontinued. Further Abx titration by ID. 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 Recent admission for same. Seen by surgery who recommended Senna. Resumed on bowel regimen and moving bowels regularly. 3. Hypokalemia - repleted. 4. AUSTYN sec to Sepsis - improved with IV hydration. 5. FOBT pos stool. No melena/hematochezia. No Anemia. GI evaluated - not for endoscopy at this time as per GI. 6. Seizure Disorder - resumed on Diazepam, Lamotrigine, Clobazam, Topiramate. DVT Px - Heparin held due to FOBT positive stool. SCDs.
[2019-05-18] MEDS: VANCOMYCIN 750 MG in DEXTROSE 5%-WATER - 250 ML IVPB SCH (16:36)
[2019-05-18] MEDS: DEXTROSE 5%-0.45% SALINE 1,000 ML IV SCH (16:37)
--- NOTE | 2019-05-18 17:37 | PN ---
Physical Exam: SUBJECTIVE: Patient seen and examined. More alert than from previous days. Spontaneous BLE movement OBJECTIVE: Vital Signs Period Temp Pulse Resp BP Sys/Vigil Pulse Ox Last 24 Hr 97 F-99 F 75-117 18-20 93-134/48-61 94 GENERAL: nonverbal, NAD HEAD: Normal with no signs of trauma. No temporal wasting EYES: sclera anicteric, conjunctiva clear and w/o pallor ENT: Ears normal, nares patent, moist mucus membranes NECK: Trachea midline, full range of motion, supple. LUNGS: Breath sounds equal, b/l ronchi HEART: tachycardia, S1, S2 without murmur, rub or gallop. ABDOMEN: distended, mildy tympanic to percussion, nonTTP [id number], no guarding or rebound, BS present. Urine on bed lilliana EXTREMITIES: atrophied and thin NEUROLOGICAL: nonverbal, soft grunts. Screams to pain SKIN: Warm, dry, normal turgor, no rashes or lesions noted Laboratory Results - last 24 hr 05/18/19 05/18/19 05/18/19 10:00 10:00 15:00 WBC 5.0 RBC 4.83 Hgb 13.4 Hct 40.1 MCV 83.0 MCH 27.7 MCHC 33.4 RDW 14.7 Plt Count 230 D MPV 7.7 Absolute Neuts (auto) 3.6 Neutrophils % 72.9 Lymphocytes % 18.1 D Monocytes % 6.5 Eosinophils % 1.9 Basophils % 0.6 Nucleated RBC % 0 Sodium 139 Potassium 3.8 Chloride 108 H Carbon Dioxide 23 Anion Gap 8 BUN 3.7 L Creatinine 0.6 Est GFR (CKD-EPI)AfAm 156.37 Est GFR (CKD-EPI)NonAf 134.92 Random Glucose 112 H Calcium 8.8 Phosphorus 3.0 Magnesium 1.8 Vancomycin Pre-Dose 1.7 L Active Medications Generic Name Dose Route Start Last Admin Trade Name Freq PRN Reason Stop Dose Admin Acetaminophen 650 mg 05/15/19 12:10 05/17/19 06:46 Tylenol Oral Solution - PO 650 mg Q6H PRN Administration PAIN OR FEVER Clobazam 5 mg 05/15/19 07:00 05/18/19 06:22 Onfi - PO 5 mg AM LINETTE Administration Clobazam 10 mg 05/14/19 22:00 05/17/19 21:55 Onfi - PO 10 mg HS LINETTE Administration Diazepam 1 mg 05/14/19 14:00 05/18/19 14:26 Valium - PO 1 mg TID LINETTE Administration Fluticasone Propionate 2 spray 05/14/19 12:45 05/18/19 09:42 Flonase - NS Not Given DAILY LINETTE Fluticasone Propionate 1 spray 05/15/19 10:00 05/18/19 09:43 Flonase - NS 1 spray DAILY LINETTE Administration Piperacillin Sod/Tazobactam 50 mls @ 100 mls/hr 05/12/19 18:00 05/18/19 09:41 Sod 3.375 gm/ Dextrose IVPB 100 mls/hr Q8H-IV LINETTE Administration Protocol Vancomycin HCl 750 mg/ 250 mls @ 250 mls/hr 05/14/19 15:15 05/18/19 16:36 Dextrose IVPB 250 mls/hr Q24H LINETTE Administration Protocol Dextrose/Sodium Chloride 1,000 mls @ 75 mls/hr 05/15/19 10:00 05/18/19 16:37 D5-1/2ns - IV 75 mls/hr ASDIR LINETTE Administration Lamotrigine 100 mg/ 125 mg 05/14/19 22:00 05/18/19 09:42 Lamotrigine 25 mg PO 125 mg BID LINETTE Administration Metoclopramide HCl 10 mg 05/14/19 14:00 05/18/19 14:26 Reglan - PO 10 mg QID LINETTE Administration Polyethylene Glycol 17 gm 05/13/19 19:45 05/18/19 09:44 Miralax (For Daily Use) - PO 17 gm DAILY LINETTE Administration Senna 2 tab 05/14/19 22:00 05/17/19 21:55 Senna - PO 2 tab HS LINETTE Administration Simethicone 80 mg 05/15/19 10:00 05/18/19 09:41 Mylicon - PO 80 mg DAILY LINETTE Administration Tizanidine HCl 4 mg 05/14/19 22:00 05/18/19 09:42 Tizanidine Hcl PO 4 mg BID LINETTE Administration Topiramate 50 mg 05/14/19 22:00 05/18/19 09:41 Topamax - PO 50 mg BID LINETTE Administration Vital Signs Temp 97 F L 05/18/19 13:00 Pulse 75 05/18/19 13:00 Resp 18 05/18/19 13:00 BP 100/58 L 05/18/19 13:00 Pulse Ox 94 L 05/18/19 09:00 Intake & Output 05/17/19 05/18/19 05/18/19 23:59 11:59 23:59 Intake Total 1245 120 Balance 1245 120 Intake: IV 1125 D5-1/2Ns - 1,000 ml @ 75 1125 mls/hr IV ASDIR LINETTE Rx#: [id number] IVPB 100 100 Oral 20 20 Other: Voiding Method Incontinent Incontinent # Unmeasured Voids Void 3 3 Bowel Movement No Yes Yes # Bowel Movements 1 1 1 Body Mass Index (BMI) 18.8 ASSESSMENT/PLAN: 28 y/o/m from [facility] with PMHx of severe MR, seizure disorder, functional quadriplegia, [place] syndrome, and constipation here for abdominal distention and vomiting. #Sepsis -Pneumonia - likely secondary to aspiration of vomit >CT Abd&pelvis - developing left basilar infiltrate >CXR(05/12/19): LLL consolidation, possible early R basilar infiltrate >CT chest(05/12/19): airspace disease/PNA in LLL, lesser extent in GERARD, RLL; no pneumothorax; no pleural effusion -Zosyn, vancomycin -WBC ~0.8; neutropenia precautions -- resolved -Speech/Swallow eval for aspiration risk -- recommend chopped diet, w/ thin liquids -appreciate ID recs: --suspect multilobar aspiration pneumonia --recieved vanco/zosyn --add zithromax -- dc as Legionella/Pneumoccocal are neg --fu urinary antigens as well- legionella/pneumococal --neg -fu BCX, UCX for 05/14/19 -- NGTD #anorexia -encourage PO intake -hold off on more invasive measure(NGT, clinimix) for now #FOBT positive -GI consulted -- no endoscopy at this time #AUSTYN -- resolving >Cr ~1.5 --> 0.8 after NS 4L -cw D5NS 1000 mls at 100mls/hr -Monitor BUN/Creatinine #Ileus - CT Abd&pelvis - little significant change in moderate to marked small bowel dilatation since 05/05/19. the amount of solid stool has decreased. There does remain a large amount of predominantly liquid stool within the sigmoid colon and rectum -- resolved as BM daily -senna, miralax, simethicone -replete Mg, Phos, K as necessary #Hypokalemia -- resolved -Will monitor with labs -replete PRN #Lactic Acid elevation -lactic acid 2.1-->1.8 --> 2.2 -->0.8 -IVF #Seizure disorder -Patient on Lamictal at group home -Switched to Keppra 500mg IV BID -- back on home dose #FEN -mIVF: D5 1/2NS -S&S: Chopped diet, thin liquids -routine BMP monitoring #Prophylaxis - Heparin 5000mg TID #Disposition -full code -admitted to med/surg -dc: Gui pending resolution of above medical issues Visit type - Emergency Visit Emergency Visit: No - New Patient This patient is new to me today: No - Critical Care Critical Care patient: No ATTENDING PHYSICIAN STATEMENT I saw and evaluated the patient. I reviewed the resident's note and discussed the case with the resident. I agree with the resident's findings and plan as documented. SUBJECTIVE: OBJECTIVE: ASSESSMENT AND PLAN:
[2019-05-18] MEDS: SENNOSIDES 8.6MG TABLET (FP) PO SCH (22:00)
[2019-05-19] MEDS ORDERED: DEXTROSE 5%-WATER - 50 ML IVPB ONE ×2 (01:14→17:39)
[2019-05-19] MEDS ORDERED: PIPERACILLIN/TAZOBACTAM 3.375 GM VIAL IVPB ONE ×3 (01:14→17:39)
[2019-05-19] MEDS: PIPERACILLIN/TAZOB 3.375 GM 3.375 GM in DEXTROSE 5%-WATER - 50 ML IVPB SCH ×2 (01:37→11:18)
[2019-05-19] MEDS: cloBAZam 10 MG TABLET PO SCH ×2 (06:25→22:34)
[2019-05-19] MEDS: diazePAM 2 MG TABLET PO SCH ×3 (06:26→22:34)
[2019-05-19] MEDS ORDERED: PT OWN MED DRAWER 7, Y5N ONE ×2 (11:08→22:23)
[2019-05-19] MEDS: TIZANIDINE HCL 4 MG TABLET PO SCH ×2 (11:18→22:35)
[2019-05-19] MEDS: DEXTROSE 5%-0.45% SALINE 1,000 ML IV SCH (11:18)
[2019-05-19] MEDS: TOPIRAMATE 25 MG TABLET (FP) PO SCH ×2 (11:19→22:33)
[2019-05-19] MEDS: METOCLOPRAMIDE HCL 10 MG TABLET (FP) PO SCH ×4 (11:19→22:33)
[2019-05-19] MEDS: LAMOTRIGINE 100 MG, LAMOTRIGINE 25 MG PO SCH ×2 (11:22→22:34)
[2019-05-19] MEDS: POLYETHYLENE GLYCOL 3350 119 GM BTL PO SCH (11:22)
[2019-05-19] MEDS: FLUTICASONE PROP 0.05% 16 GM NASAL SPRAY NS SCH ×2 (11:23→11:47)
[2019-05-19] MEDS: SIMETHICONE 80 MG TAB.CHEW (FP) PO SCH (12:33)
[2019-05-19] MEDS: SIMETHICONE 40 MG/0.6 ML BOTTLE PO SCH (12:34)
--- NOTE | 2019-05-19 13:49 | PN ---
Teaching Attending Note Name of Resident: Ander Cobos ATTENDING PHYSICIAN STATEMENT I saw and evaluated the patient. I reviewed the resident's note and discussed the case with the resident. I agree with the resident's findings and plan as documented. SUBJECTIVE:resting comfortable OBJECTIVE: Last Vital Signs Temp Pulse Resp BP Pulse Ox 98.6 F 95 H 20 95/68 94 L 05/19/19 06:31 05/19/19 06:31 05/19/19 06:31 05/19/19 06:31 05/18/19 21:00 General resting comfortable, moans when examining him CV S1 s2 RRR no murmur/rub/gallop Lungs CTA anteriorly poor inspiratory effort Abdomen soft distended Extremities contracted ASSESSMENT AND PLAN: 28 year old male resident at [facility] with PMHx of severe MR, seizure disorder, functional quadriplegia, Huan syndrome, s/p UNDERCOVER AGENT shunt, brought in for abdominal distention/vomiting, which is recurrent, found to have multifocal pneumonia, developed fever and neutropenia in ED. 1. Sepsis secondary to Multifocal Pneumonia, likely due to Aspiration. clinically improved. afebrile>24H. on vanco/zosyn. will d/w ID about transitioning to po abx. seen by swallowing therapist with recommendation of chopped with thin liquids. appetite improves when eating food that patient likes. IS KNOWN TO BE PICKY AND WILL REFUSE TO EAT IF NOT WHAT HE WANTS TO EAT. 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 Recent admission for same. Seen by surgery who recommended Senna. Resumed on bowel regimen and moving bowels regularly. 3. Hypokalemia - repleted. 4. AUSTYN sec to Sepsis - improved with IV hydration. 5. FOBT pos stool. No melena/hematochezia. No Anemia. GI evaluated - not for endoscopy at this time as per GI. 6. Seizure Disorder - resumed on Diazepam, Lamotrigine, Clobazam, Topiramate. 7. DVT Px - Heparin held due to FOBT positive stool. SCDs. 8. medically optimized can likely return to [facility] if able to transition to po abx today
--- NOTE | 2019-05-19 14:19 | PN ---
Progress Note (short form) - Note Progress Note: NAD much improved looks comfortable starting to eat a bit Vital Signs Period Temp Pulse Resp BP Sys/Vigil Pulse Ox Last 24 Hr 97.4 F-98.6 F 94-117 16-22 95-119/59-68 94 cor-rrr lungs decreased bs at bases abd soft,nt ext no edema CBC, BMP 05/18/19 10:00 05/18/19 10:00 Microbiology 05/14/19 18:30 Blood - Peripheral Venous Blood Culture - Preliminary NO GROWTH OBTAINED AFTER 96 HOURS, INCUBATION TO CONTINUE FOR 1 DAYS. 05/15/19 17:30 Urine For Antigen Detection Legionella Antigen - Final 05/15/19 17:30 Urine For Antigen Detection Streptococcus pneumoniae Antigen (M - Final 05/11/19 18:00 Blood - Peripheral Venous Blood Culture - Final NO GROWTH AFTER 5 DAYS INCUBATION 05/11/19 18:10 Blood - Peripheral Venous Blood Culture - Final NO GROWTH AFTER 5 DAYS INCUBATION 05/14/19 15:06 Nares - Left Nares MRSA Screen - Final NO MRSA ISOLATED 05/14/19 15:06 Nares - Right Nares MRSA Screen - Final NO MRSA ISOLATED 05/14/19 15:44 Urine - Urine Clean Catch Urine Culture - Final NO GROWTH OBTAINED 05/11/19 17:45 Urine - Urine Clean Catch Urine Culture - Final NO GROWTH OBTAINED Current Medications Acetaminophen (Tylenol Oral Solution -) 650 mg PO Q6H PRN PRN Reason: PAIN OR FEVER Last Admin: 05/17/19 06:46 Dose: 650 mg Clobazam (Onfi -) 5 mg PO AM LINETTE Last Admin: 05/19/19 06:25 Dose: 5 mg Clobazam (Onfi -) 10 mg PO HS LINETTE Last Admin: 05/18/19 22:00 Dose: 10 mg Diazepam (Valium -) 1 mg PO TID LINETTE Last Admin: 05/19/19 06:26 Dose: 1 mg Fluticasone Propionate (Flonase -) 2 spray NS DAILY [facility]ETTE Last Admin: 05/19/19 11:47 Dose: Not Given Fluticasone Propionate (Flonase -) 1 spray NS DAILY LINETTE Last Admin: 05/19/19 11:23 Dose: 1 spray Piperacillin Sod/Tazobactam (Sod 3.375 gm/ Dextrose) 50 mls @ 100 mls/hr IVPB Q8H-IV LINETTE; Protocol Last Admin: 05/19/19 11:18 Dose: 100 mls/hr Vancomycin HCl 750 mg/ (Dextrose) 250 mls @ 250 mls/hr IVPB Q24H LINETTE; Protocol Last Admin: 05/18/19 16:36 Dose: 250 mls/hr Dextrose/Sodium Chloride (D5-1/2ns -) 1,000 mls @ 75 mls/hr IV ASDIR [facility] Last Admin: 05/19/19 11:18 Dose: 75 mls/hr Lamotrigine 100 mg/ (Lamotrigine 25 mg) 125 mg PO BID [facility] Last Admin: 05/19/19 11:22 Dose: 125 mg Metoclopramide HCl (Reglan -) 10 mg PO QID [facility] Last Admin: 05/19/19 11:19 Dose: 10 mg Polyethylene Glycol (Miralax (For Daily Use) -) 17 gm PO DAILY [facility] Last Admin: 05/19/19 11:22 Dose: 17 gm Senna (Senna -) 2 tab PO HS [facility] Last Admin: 05/18/19 22:00 Dose: 2 tab Simethicone (Mylicon Liquid -) 80 mg PO DAILY [facility] Last Admin: 05/19/19 12:34 Dose: 80 mg Tizanidine HCl (Tizanidine Hcl) 4 mg PO BID [facility] Last Admin: 05/19/19 11:18 Dose: 4 mg Topiramate (Topamax -) 50 mg PO BID [facility] Last Admin: 05/19/19 11:19 Dose: 50 mg a/p fevers resolved on vanco/zosyn for aspiraiton pneumonia- day #8 afebrile now for 48 hours can switch to augmentin to complete 10 days -875 mg po bid or 500 tid 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 epilepsy benign cyclic neutropenia d/w resident Problem List - Problems (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 - OTHER SPECIFIED FUNCTIONAL INTESTINAL DISORDERS (2) PNA (pneumonia) Code(s): J18.9 - PNEUMONIA, UNSPECIFIED ORGANISM Qualifiers: Pneumonia type: due to unspecified organism Laterality: left Lung location: lower lobe of lung Qualified Code(s): J18.1 - Lobar pneumonia, unspecified organism (3) Congenital quadriplegia Code(s): G80.8 - OTHER CEREBRAL PALSY (4) Profound mental handicap Code(s): F73 - PROFOUND INTELLECTUAL DISABILITIES (5) S/P ventriculoperitoneal shunt Code(s): Z98.2 - PRESENCE OF CEREBROSPINAL FLUID DRAINAGE DEVICE (6) Epilepsy without status epilepticus, not intractable Code(s): G40.909 - EPILEPSY, UNSP, NOT INTRACTABLE, WITHOUT STATUS EPILEPTICUS Qualifiers: Epilepsy type: unspecified Qualified Code(s): G40.909 - Epilepsy, unspecified, not intractable, without status epilepticus
[2019-05-19] MEDS: VANCOMYCIN 750 MG in DEXTROSE 5%-WATER - 250 ML IVPB SCH (15:10)
--- NOTE | 2019-05-19 19:10 | PN ---
Physical Exam: SUBJECTIVE: Patient seen and examined. Spontaneous movement of extremities. Moaning loudly. Nonverbal which is baseline OBJECTIVE: Vital Signs Period Temp Pulse Resp BP Sys/Vigil Pulse Ox Last 24 Hr 97.4 F-98.6 F 90-122 16-22 95-121/59-80 94-97 GENERAL: nonverbal, NAD HEAD: Normal with no signs of trauma. No temporal wasting EYES: sclera anicteric, conjunctiva clear and w/o pallor ENT: Ears normal, nares patent, moist mucus membranes NECK: Trachea midline, full range of motion, supple. LUNGS: Breath sounds equal, b/l ronchi HEART: tachycardia, S1, S2 without murmur, rub or gallop. ABDOMEN: distended, mildy tympanic to percussion, nonTTP [id number], no guarding or rebound, BS present. Urine on bed lilliana EXTREMITIES: atrophied and thin NEUROLOGICAL: nonverbal, soft grunts. Screams to pain SKIN: Warm, dry, normal turgor, no rashes or lesions noted Active Medications Generic Name Dose Route Start Last Admin Trade Name Freq PRN Reason Stop Dose Admin Acetaminophen 650 mg 05/15/19 12:10 05/17/19 06:46 Tylenol Oral Solution - PO 650 mg Q6H PRN Administration PAIN OR FEVER Clobazam 5 mg 05/15/19 07:00 05/19/19 06:25 Onfi - PO 5 mg AM LINETTE Administration Clobazam 10 mg 05/14/19 22:00 05/18/19 22:00 Onfi - PO 10 mg HS LINETTE Administration Diazepam 1 mg 05/14/19 14:00 05/19/19 14:52 Valium - PO 1 mg TID LINETTE Administration Fluticasone Propionate 2 spray 05/14/19 12:45 05/19/19 11:47 Flonase - NS Not Given DAILY LINETTE Fluticasone Propionate 1 spray 05/15/19 10:00 05/19/19 11:23 Flonase - NS 1 spray DAILY LINETTE Administration Vancomycin HCl 750 mg/ 250 mls @ 250 mls/hr 05/14/19 15:15 05/19/19 15:10 Dextrose IVPB 250 mls/hr Q24H [facility]ETTE Administration Protocol Dextrose/Sodium Chloride 1,000 mls @ 75 mls/hr 05/15/19 10:00 05/19/19 11:18 D5-1/2ns - IV 75 mls/hr ASDIR [facility] Administration Lamotrigine 100 mg/ 125 mg 05/14/19 22:00 05/19/19 11:22 Lamotrigine 25 mg PO 125 mg BID LINETTE Administration Metoclopramide HCl 10 mg 05/14/19 14:00 05/19/19 18:16 Reglan - PO 10 mg QID LINETTE Administration Polyethylene Glycol 17 gm 05/13/19 19:45 05/19/19 11:22 Miralax (For Daily Use) - PO 17 gm DAILY LINETTE Administration Senna 2 tab 05/14/19 22:00 05/18/19 22:00 Senna - PO 2 tab HS LINETTE Administration Simethicone 80 mg 05/19/19 11:30 05/19/19 12:34 Mylicon Liquid - PO 80 mg DAILY [facility]ETTE Administration Tizanidine HCl 4 mg 05/14/19 22:00 05/19/19 11:18 Tizanidine Hcl PO 4 mg BID LINETTE Administration Topiramate 50 mg 05/14/19 22:00 05/19/19 11:19 Topamax - PO 50 mg BID LINETTE Administration Vital Signs Temp 98.3 F 05/19/19 16:30 Pulse 90 05/19/19 16:30 Resp 18 05/19/19 16:30 BP 114/61 05/19/19 16:30 Pulse Ox 97 05/19/19 09:00 Intake & Output 05/18/19 05/19/19 05/19/19 23:59 11:59 23:59 Intake Total 1300 625 Balance 1300 625 Intake: IV 800 525 D5-1/2Ns - 1,000 ml @ 75 800 525 mls/hr IV ASDIR LINETTE Rx#: [id number] IVPB 350 50 Oral 150 50 Other: Voiding Method Incontinent Incontinent # Unmeasured Voids Void 1 3 Bowel Movement No No No # Bowel Movements 1 Body Mass Index (BMI) 18.8 ASSESSMENT/PLAN: 28 y/o/m from [facility] with PMHx of severe MR, seizure disorder, functional quadriplegia, Huan syndrome, and constipation presenting for abdominal distention, vomiting, possible aspiration pneumonia. #Sepsis -Pneumonia - likely secondary to aspiration of vomit >CT Abd&pelvis - developing left basilar infiltrate >CXR(05/12/19): LLL consolidation, possible early R basilar infiltrate >CT chest(05/12/19): airspace disease/PNA in LLL, lesser extent in GERARD, RLL; no pneumothorax; no pleural effusion -Zosyn, vancomycin -- Augmentin 875 BID to complete 10d of total abx -WBC ~0.8; neutropenia precautions -- resolved -Speech/Swallow eval for aspiration risk -- recommend chopped diet, w/ thin liquids -appreciate ID recs: --suspect multilobar aspiration pneumonia --recieved vanco/zosyn --add zithromax -- dc as Legionella/Pneumoccocal are neg --fu urinary antigens as well- legionella/pneumococal --neg -fu BCX, UCX for 05/14/19 -- NGTD #anorexia -- resolving -05/18/19: ate 3/4 burger, 1/2 mashed potatoes -encourage PO intake -hold off on more invasive measure(NGT, clinimix) for now #FOBT positive -GI consulted -- no endoscopy at this time #AUSTYN -- resolving >Cr ~1.5 --> 0.8 after NS 4L -cw D5NS 1000 mls at 100mls/hr -Monitor BUN/Creatinine #Ileus - CT Abd&pelvis - little significant change in moderate to marked small bowel dilatation since 05/05/19. the amount of solid stool has decreased. There does remain a large amount of predominantly liquid stool within the sigmoid colon and rectum -- resolved as BM daily -senna, miralax, simethicone -replete Mg, Phos, K as necessary #Hypokalemia -- resolved -Will monitor with labs -replete PRN #Lactic Acid elevation -lactic acid 2.1-->1.8 --> 2.2 -->0.8 -IVF #Seizure disorder -Patient on Lamictal at snf -Switched to Keppra 500mg IV BID -- back on home dose #FEN -mIVF: D5 1/2NS -S&S: Chopped diet, thin liquids -routine BMP monitoring #Prophylaxis - Heparin 5000mg TID #Disposition -full code -admitted to med/surg -dc: Gui pending resolution of above medical issues Visit type - Emergency Visit Emergency Visit: No - New Patient This patient is new to me today: No - Critical Care Critical Care patient: No ATTENDING PHYSICIAN STATEMENT I saw and evaluated the patient. I reviewed the resident's note and discussed the case with the resident. I agree with the resident's findings and plan as documented. SUBJECTIVE: OBJECTIVE: ASSESSMENT AND PLAN:
[2019-05-19] MEDS ORDERED: lamoTRIgine 100 MG TABLET (FP) ONE (22:20)
[2019-05-19] MEDS ORDERED: lamoTRIgine 25 MG TABLET ONE (22:20)
[2019-05-19] MEDS: SENNOSIDES 8.6MG TABLET (FP) PO SCH (22:34)
[2019-05-20] MEDS: DEXTROSE 5%-0.45% SALINE 1,000 ML IV SCH (02:50)
[2019-05-20] MEDS: cloBAZam 10 MG TABLET PO SCH (06:07)
[2019-05-20] MEDS: diazePAM 2 MG TABLET PO SCH ×2 (06:07→14:17)
[2019-05-20] MEDS ORDERED: PT OWN MED DRAWER 7, Y5N ONE ×2 (06:18→09:00)
[2019-05-20] MEDS: ACETAMINOPHEN 650 MG/20.3 ML ORAL SOLUTION (CUPS) PO PRN (06:46)
[2019-05-20] MEDS ORDERED: BISACODYL 10 MG SUPP.RECT PR ONE (08:28)
[2019-05-20] MEDS ORDERED: lamoTRIgine 100 MG TABLET (FP) ONE (08:59)
[2019-05-20] MEDS ORDERED: lamoTRIgine 25 MG TABLET ONE (08:59)
[2019-05-20] MEDS: METOCLOPRAMIDE HCL 10 MG TABLET (FP) PO SCH ×2 (09:02→14:17)
[2019-05-20] MEDS: TOPIRAMATE 25 MG TABLET (FP) PO SCH (09:02)
[2019-05-20] MEDS: LAMOTRIGINE 100 MG, LAMOTRIGINE 25 MG PO SCH (09:02)
[2019-05-20] MEDS: FLUTICASONE PROP 0.05% 16 GM NASAL SPRAY NS SCH ×2 (09:04→09:05)
[2019-05-20] MEDS: SIMETHICONE 40 MG/0.6 ML BOTTLE PO SCH (09:04)
[2019-05-20] MEDS: POLYETHYLENE GLYCOL 3350 119 GM BTL PO SCH (09:04)
[2019-05-20] MEDS: TIZANIDINE HCL 4 MG TABLET PO SCH (09:05)
--- NOTE | 2019-05-20 13:39 | PN ---
Teaching Attending Note Name of Resident: [place] ATTENDING PHYSICIAN STATEMENT I saw and evaluated the patient. I reviewed the resident's note and discussed the case with the resident. I agree with the resident's findings and plan as documented. 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 1. Sepsis secondary to Multifocal Pneumonia, likely due to Aspiration. clinically improved. afebrile>24H. on vanco/zosyn. can switch to augemtnin to complete 10 days. seen by swallowing therapist with recommendation of chopped with thin liquids. appetite improves when eating food that patient likes. IS KNOWN TO BE PICKY AND WILL REFUSE TO EAT IF NOT WHAT HE WANTS TO EAT. 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 Recent admission for same. AXR done at Dr Mortensen request seeing increased stool burden distally then previous imaging. will give bisacodyl suppository. avoid overuse of stool softeners. needs to monitor for regular BM. cont senna and miralax 3. Hypokalemia - repleted. 4. AUSTYN sec to Sepsis - improved with IV hydration. 5. FOBT pos stool. No melena/hematochezia. No Anemia. GI evaluated - not for endoscopy at this time as per GI. 6. Seizure Disorder - resumed on Diazepam, Lamotrigine, Clobazam, Topiramate. 7. DVT Px - Heparin held due to FOBT positive stool. SCDs. 8. medically optimized can likely return to [facility] today
--- NOTE | 2019-05-20 13:54 | PN ---
Progress Note, CLIENT COORDINATOR - Note Progress Note: Selected Entries 05/19/19 05/19/19 05/19/19 06:31 10:00 11:52 Breakfast 100% Lunch 0 Supper Temperature 98.6 F 97.4 F L 05/19/19 05/19/19 05/19/19 14:00 16:30 18:30 Breakfast Lunch Supper 25% Temperature 97.8 F 98.3 F 05/19/19 05/20/19 05/20/19 20:00 02:30 06:59 Breakfast Lunch Supper Temperature 99.6 F 98.9 F 98.3 F 05/20/19 09:34 Breakfast Lunch Supper Temperature 98.3 F Laboratory Tests 05/18/19 10:00 WBC 5.0 Eating well, chicken, fries from his mother etc, in small bites. Drinking from straw.
--- NOTE | 2019-05-20 15:56 | DS ---
Physical Exam: SUBJECTIVE: Patient seen and examined OBJECTIVE: Vital Signs Period Temp Pulse Resp BP Sys/Vigil Pulse Ox Last 24 Hr 98.3 F-99.6 F 79-92 18-24 98-114/56-61 97-97 PHYSICAL EXAM GENERAL: nonverbal, NAD HEAD: Normal with no signs of trauma. No temporal wasting EYES: sclera anicteric, conjunctiva clear and w/o pallor ENT: Ears normal, nares patent, moist mucus membranes NECK: Trachea midline, full range of motion, supple. LUNGS: Breath sounds equal, b/l ronchi HEART: tachycardia, S1, S2 without murmur, rub or gallop. ABDOMEN: distended, mildy tympanic to percussion, nonTTP [id number], no guarding or rebound, BS present. Urine on bed lilliana RECTAL: no external lesions, normal rectal tone, no firm stool in vault, no blood on glove EXTREMITIES: atrophied and thin NEUROLOGICAL: nonverbal, soft grunts. Screams to pain SKIN: Warm, dry, normal turgor, no rashes or lesions noted LABS HOSPITAL COURSE: 28 y/o/M from [facility] with PMHx of severe MR, seizure disorder, functional quadriplegia, Myrtle syndrome, and constipation presenting for abdominal distention, vomiting. CXR/CT chest showing LLL airspace disease suggestive of an aspiration pneumonia. Received zosyn + vanc then transistioned to Augmentin for 10d total of abx. CT A/P did not show any worsening of previous admission's ileus. Was given senna, miralax, smiethicone; daily electrolyte repletion; daily digital rectal exams for stimulus. Demonostrated ability to pass stool. Appetite increased and able to tolerate a regular diet. FOBT positive but GI did not recommend scoping. [facility]emed [facility] Date of Admission:05/11/19 Date of Discharge: 05/20/19 Minutes to complete discharge: 20 Discharge Summary Problems reviewed: Yes Reason For Visit: COLON DISTENTION,PNEUMONIA,CONSTIPATION Current Active Problems Colon distention (Acute) Congenital quadriplegia (Acute) Constipation (Acute) Fecal occult blood test positive (Acute) PNA (pneumonia) (Acute) Condition: Good - Instructions Diet, Activity, Other Instructions: You were evaluated in the hospital after vomiting. CT of the abdomen did not show major changes in the dilation of the bowels. CT chest showed lung disease suggestive of pneumonia probably due to vomit aspiration. You were treated with antibiotics. Your abdominal distention improved after administration of medications that promote bowel movement. You remained afebrile for over 48hours. There was blood detected in your stool. A thread clipper was consulted to evaluate who recommended no further studies at this time while inpatient. Bloodwork showed mild dehydration that improved with intravenous fluids. Prior to discharge, patient was able to tolerate solid food and finish his meals. Patient had multiple bowel movements throughout the hospital admission Please follow-up with the following physicians: -PCP in one week -Signal Tower Director (Dr Sharp) within 1 month as you may require endoscopy in the future. Medications: -NEW medications: Augmentin 875mg twice daily by mouth for one more day. please take tonight and tomorrow. -continue all other medications especially those that promote bowel motility( senna, bisacodyl, metoclopramide) however careful to avoid overuse. Additional instructions: -stay hydrated as this will reduce constipation -consider routine rectal exams to evaluate for impacted stool and stimulation of evacuation -consider having a suppository every 2-3 days -You were seen by a Swallowing therapist who recommends a chopped diet with thin liquids -Your potassium and magnesium was low during your hospital stay and required repletion, it is now normal but will require further monitoring. Please discuss lab checks with your PCP. Please call 911 or come directly to the emergency department if you experience unusual headache, vision change, shortness of breath, chest pain, numbness, tingling, loss of alertness/awareness, loss of function, unusual bleeding or any alarming symptoms. Referrals: Sia Sharp MD [Staff Physician] - Disposition: HOME - Home Medications Comprehensive Discharge Medication List: Ambulatory Orders Acetaminophen [Tylenol] 650 mg PO Q4H PRN 02/09/19 FA/Mv,Ca,Iron,Min/Lycopene/Lut [Centravites Tablet] 1 each PO HS 02/09/19 Loratadine [Claritin -] 10 mg PO HS 02/09/19 Magnesium Hydrox 2400MG/30Ml [Milk of Magnesia -] 35 ml PO BID 02/09/19 Tizanidine HCl [Zanaflex (Nf) -] 4 mg PO BID 02/09/19 Bisacodyl Suppository [Dulcolax Suppository -] 10 mg OK PRN PRN 05/05/19 Cholecalciferol (Vitamin D3) [Vitamin D3] 400 iu PO BID 05/05/19 Fluticasone Prop 0.05% Nasal [Flonase -] 1 - 2 spray NS DAILY 05/05/19 Simethicone 80 mg PO PRN 05/05/19 Clobazam [Onfi -] 5 mg PO AM 05/11/19 Metoclopramide HCl [Reglan -] 10 mg PO QID 05/11/19 Sodium Phosphate,[place]-Dibasic [Fleet Enema] 133 ml RC ASDIR PRN 05/11/19 Topiramate 50 mg PO BID 05/11/19 Wheat Dextrin/Calcium Carb [Cvs Easy Fiber Chewable Tablet] 1 each PO DAILY Bisacodyl 10 mg PO DAILY 05/12/19 Clobazam [Onfi -] 10 mg PO HS 05/12/19 Diazepam 1 mg PO TID 05/12/19 Diazepam [Diastat Acudial] 1 each RC PRN 05/12/19 Lactulose 30 ml PO HS 05/12/19 Lamotrigine [Lamotrigine ER] 125 mg PO BID 05/12/19 Nystatin Powder [Nystop Powder -] 30 gm TP ASDIR 05/12/19 Olopatadine HCl 2.5 ml OU BID PRN 05/12/19 Sennosides [Senna -] 3 tab PO HS 05/12/19 Sodium Chloride [[place] Saline] 2 sprays NS PRN 05/12/19 Polyethylene Glycol 3350 [Miralax 119 gm Btl -] 17 gm PO DAILY bottle 05/19/19 Amox-Tr/K Cl [Augmentin 875-125mg Tablet -] 1 tab PO BID@0800,1730 #2 tablet 10/07 This patient is new to me today: No Emergency Visit: No Critical Care patient: No - Discharge Referral Referred to [facility] Med P.C.: No ATTENDING PHYSICIAN STATEMENT I saw and evaluated the patient. I reviewed the resident's note and discussed the case with the resident. I agree with the resident's findings and plan as documented. SUBJECTIVE: OBJECTIVE: ASSESSMENT AND PLAN:
[2019-05-20 16:15] VITALS: BP 97/58; PULSE 88; TEMP 98.2
[2019-05-20] MEDS ORDERED: AMOX TR/POT CLAV 875MG/125MG TABLETS (FP) PO SCH (17:30)
== END 2019-05-20 16:50 | disposition home or self-care (01) | DRG 720 ==
LOC: JER 11:06 → SUPCPDRO 11:06 → JERBED 17:03 → J8W 05-12 18:53
PROVIDERS: ATTEND Internal Medicine
DX: A41.89 Other specified sepsis (principal); F72 Severe intellectual disabilities; G40.802 Other epilepsy, not intractable, without status epilepticus; R00.0 Tachycardia, unspecified; R00.1 Bradycardia, unspecified; J69.0 Pneumonitis due to inhalation of food and vomit; G80.8 Other cerebral palsy; D70.9 Neutropenia, unspecified; R14.0 Abdominal distension (gaseous); G43.909 Migraine, unspecified, not intractable, without status migrainosus; R11.10 Vomiting, unspecified; D72.829 Elevated white blood cell count, unspecified; K56.7 Ileus, unspecified; N17.9 Acute kidney failure, unspecified; K59.8 Other specified functional intestinal disorders; E87.2 Acidosis; E87.6 Hypokalemia; R19.5 Other fecal abnormalities; E83.39 Other disorders of phosphorus metabolism; Q66.89 Other specified congenital deformities of feet; Z98.2 Presence of cerebrospinal fluid drainage device
CPT/HCPCS: 36415; 71045-TC-FY; 71250-TC; 74018-TC-FY; 74176-TC; 74230-TC-FY; 80048; 80053; 81003; 82272; 83605; 83690; 83735; 84100; 85025; 85027; 87040; 87081; 87086; 87899; 92611-GN; 93005; 93010; 99285-25; G0480; J0131; J1644; J7030